=== PATIENT | male | born 1965 | race Caucasian/White ===

== ENCOUNTER 2016-12-04 21:12 | Emergency (ER) | payer SELFPAY ==
[~2016-12-04] VITALS: Ht 170.2 cm; Wt 156.4 kg
[~2016-12-04 21:12] MED LIST: CLON1TAB PO; LISI20TA PO; MOBI15TA PO; ULTR50TA5 PO; VENTAER INH
[2016-12-04 21:34] VITALS: BP 168/102; PULSE 92; RESP 16; TEMP 97.5
[2016-12-04] MEDS ORDERED: IBUP800T23 PO (21:51)
--- NOTE | 2016-12-04 22:28 | PD ---
HPI Chief Complaint: Skin Problem Time Seen by Provider: 22:23 Travel History International Travel<30 days: No Contact w/Intl Traveler<30days: No Traveled to known affect area: No History of Present Illness HPI The patient is a 51-year-old male that has had a sore (abscess) on his left upper medial thigh for one week. The patient states it is getting progressively painful and came here because of this. He denies any fever. He denies any history of diabetes. 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) Cardiovascular Problems: Yes (Cardiomegaly, HTN) High Cholesterol: Yes Chemotherapy: No Chest Pain: Yes (occassionally) Congestive Heart Failure: Yes (in March) COPD: No Cerebrovascular Accident: No Coronary Artery Disease: No Diabetes: No Diminished Hearing: No Endocrine: No Gastrointestinal Disorders: Yes (CALDERA'S ESOPHAGUS, LIVER CYSTS X3) Genitourinary: No Hypertension: Yes Immune Disorder: No Kidney Stones: Yes (few months ago) Musculoskeletal: No Neurologic: No Psychiatric: Yes Reproductive: No Respiratory: Yes (COPD, sleep apnea) Migraines: No Pneumonia: Yes Radiation Therapy: No Renal Failure: No Seizures: No Sickle Cell Disease: No Sleep Apnea: Yes Thyroid Disease: No Ulcer: No ?: Not Past Surgical History Abdominal Surgery: Yes (ESOPHOGUS SURG., POLYPS REMOVED) AICD: No Arteriovenous Shunt: No Cardiac Surgery: No Ear Surgery: No Endocrine Surgery: No Eye Surgery: No Genitourinary Surgery: No Gynecologic Surgery: No Insulin Pump: No Joint Replacement: No Oral Surgery: No Pacemaker: No Thoracic Surgery: No Other Surgery: Yes (LUNG SURGERY: LIPOMA REMOVED, RIGHT SIDE, AGE 30) Social History Alcohol Use: Yes ("NORMALLY 2 TO 3 TIMES A WEEK, EASILY TWO 18PK OF BEERS AT A TIME") Tobacco Use: Yes (1 ppd) Substance Use: No Allergies-Medications (Allergen,Severity, Reaction): Coded Allergies: No Known Allergies (Unverified , 08/10/16) Reported Meds & Prescriptions Reported Meds & Active Scripts Active Reported Ibuprofen 800 Mg Tab 800 Mg PO Q6HR PRN Clonazepam 1 Mg Tab 1 Mg PO BID Lisinopril-Hctz 20-12.5 Mg Tab 1 Tab PO DAILY Review of Systems Except as stated in HPI: all other systems reviewed are Neg Physical Exam Narrative GENERAL: Well-nourished, morbidly obese patient in moderate apparent distress with his left upper thigh abscess. His vital signs show blood pressure 168/102 but are otherwise normal.. SKIN: There is an abscess about 3 cm in diameter with 10 cm diameter cellulitic area surrounding the abscess. It is exquisitely painful and the patient is reluctant to let me touch this. HEAD: Normocephalic. EYES: No scleral icterus. No injection or drainage. NECK: Supple, trachea midline. No JVD or lymphadenopathy. CARDIOVASCULAR: Regular rate and rhythm without murmurs, gallops, or rubs. RESPIRATORY: Breath sounds equal bilaterally. No accessory muscle use. GASTROINTESTINAL: Abdomen soft, non-tender, nondistended. MUSCULOSKELETAL: No cyanosis, or edema. BACK: Nontender without obvious deformity. No CVA tenderness. Data Data Last Documented VS Vital Signs Date Time Temp Pulse Resp B/P Pulse Ox O2 Delivery O2 Flow Rate FiO2 12/04/16 21:34 97.5 92 16 168/102 Orders Wound Culture And Gram Stain (12/04/16 22:23) Lidocai-Epi 1%-1:100,000 Inj (Xylocaine- (12/04/16 22:30) MDM Medical Decision Making Medical Screen Exam Complete: Yes Emergency Medical Condition: Yes Medical Record Reviewed: Yes Differential Diagnosis Abscess, cellulitis, allergic reaction Narrative Course The patient has an abscess with a surrounding area of cellulitis. The abscess was drained and the patient will be getting doxycycline and Septra DS for the cellulitis. He should sit in a tub of warm water 3 times a day initially to keep the abscess cavity open/clean. Procedures Procedure Narrative The area was prepped with Betadine and, under sterile technique, a field block was done with lidocaine with epinephrine. A #11 blade was used to incise into the abscess and considerable blood and pus was recovered. Culture was taken of this material. The abscess cavity was cleaned and loculations broken up with peroxide moistened Q-tips. The patient tolerated procedure fairly well. Diagnosis Primary Impression: Abscess of left thigh Additional Impressions: Cellulitis of left thigh Encounter for incision and drainage procedure Additional Instructions: As we discussed, for the first few days he may need to soak it 3 times daily. Sit in a tub of warm water. Both antibiotics are twice daily for 10 days. Follow-up with your primary care physician this week. If worse, return to emergency department. Med/Other Pt SpecificInfo: Prescription(s) given Scripts Doxycycline Hyclate 100 Mg Pcf701 Mg PO BID #20 CAP Ref 0 Prov:Daryl Humphreys MD 12/04/16 Sulfamethoxazole-Trimethoprim (Bactrim DS)800-160 Mg Tab1 Tab PO BID #20 TAB Ref 0 Prov:Daryl Humphreys MD 12/04/16 Disposition: 01 DISCHARGE HOME Condition: Stable Daryl Humphreys MD Dec 04, 2016 22:28
[2016-12-04] MEDS ORDERED: LIDOCAINE 1%/EPINEPHrine 1:100,000 SOLN 20 ML VIAL INFIL ONE (22:30)
[2016-12-04] MEDS ORDERED: BACT800T5 PO (23:06)
[2016-12-04] MEDS ORDERED: DOXY100C PO (23:06)
[2016-12-04 23:21] VITALS: BP 162/89
== END 2016-12-04 23:41 | disposition home or self-care (01) ==
LOC: PHED 21:12
DX: L02.416 Cutaneous abscess of left lower limb (principal); F17.210 Nicotine dependence, cigarettes, uncomplicated; I10 Essential (primary) hypertension; E78.00 Pure hypercholesterolemia, unspecified; I50.9 Heart failure, unspecified; J44.9 Chronic obstructive pulmonary disease, unspecified; G47.30 Sleep apnea, unspecified
CPT/HCPCS: 10060; 86403; 87070; 87205

== ENCOUNTER 2017-02-26 13:57 | Observation (INO) | payer SELFPAY ==
[2017-02-26] VITALS (8 sets, daily range): BP systolic 98–143; BP diastolic 44–85; PULSE 98–118; RESP 20–28; TEMP 97.3–100.4; O2SAT 94–97
[~2017-02-26] VITALS: Ht 170.2 cm; Wt 149.7 kg
[~2017-02-26 13:57] MED LIST changes: +BACT800T5 PO; +DOXY100C PO; +IBUP800T23 PO; -MOBI15TA PO; -ULTR50TA5 PO; -VENTAER INH
[2017-02-26] MEDS ORDERED: SODIUM CHLORIDE 0.9% FLUSH 10 ML FLUSH IVF PRN (14:15)
[2017-02-26] MEDS: RESP: ALBUTEROL 2.5 MG/IPRATROPIUM 0.5 MG NEB (SCH) INH (14:20)
--- NOTE | 2017-02-26 14:29 | PD ---
HPI Chief Complaint: Respiratory Symptoms Time Seen by Provider: 14:05 Travel History International Travel<30 days: No Contact w/Intl Traveler<30days: No Traveled to known affect area: No History of Present Illness HPI This 51-year-old male is complaining of shortness of breath. He has a history of COPD and he says he has had fluid in his lungs in the past. He says he been having fever for the past 3 days. He has some itching in the groin and the axillary areas. He has been coughing up some thick phlegm. he says he has had a fever as high as 102. He smokes a pack a day. He is complaining of shortness of breath since this morning. He says he has a history of fluid in his lungs. Review of old chart shows that he described his pickwickian in the past. 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) Cardiovascular Problems: Yes (Cardiomegaly, HTN) High Cholesterol: Yes Chemotherapy: No Chest Pain: Yes (occassionally) Congestive Heart Failure: Yes (in March) COPD: No Cerebrovascular Accident: No Coronary Artery Disease: No Diabetes: No Diminished Hearing: No Endocrine: No Gastrointestinal Disorders: Yes (CALDERA'S ESOPHAGUS, LIVER CYSTS X3) Genitourinary: No Hypertension: Yes Immune Disorder: No Kidney Stones: Yes (few months ago) Musculoskeletal: No Neurologic: No Psychiatric: Yes Reproductive: No Respiratory: Yes (COPD, sleep apnea) Migraines: No Pneumonia: Yes Radiation Therapy: No Renal Failure: No Seizures: No Sickle Cell Disease: No Sleep Apnea: Yes Thyroid Disease: No Ulcer: No Past Surgical History Abdominal Surgery: Yes (ESOPHOGUS SURG., POLYPS REMOVED) AICD: No Arteriovenous Shunt: No Cardiac Surgery: No Ear Surgery: No Endocrine Surgery: No Eye Surgery: No Genitourinary Surgery: No Gynecologic Surgery: No Insulin Pump: No Joint Replacement: No Oral Surgery: No Pacemaker: No Thoracic Surgery: No Other Surgery: Yes (LUNG SURGERY: LIPOMA REMOVED, RIGHT SIDE, AGE 30) Social History Alcohol Use: Yes ("NORMALLY 2 TO 3 TIMES A WEEK, EASILY TWO 18PK OF BEERS AT A TIME") Tobacco Use: Yes (1 ppd) Substance Use: No Allergies-Medications (Allergen,Severity, Reaction): Coded Allergies: No Known Allergies (Unverified , 02/26/17) Reported Meds & Prescriptions Reported Meds & Active Scripts Active Reported Clonazepam 1 Mg Tab 1 Mg PO DAILY Lisinopril-Hctz 20-12.5 Mg Tab 1 Tab PO DAILY Review of Systems General / Constitutional: Positive: Fever, Chills Eyes: No: Diploplia HENT: No: Headaches Cardiovascular: Positive: Dyspnea on exertion, No: Chest Pain or Discomfort, Palpitations Respiratory: Positive: Cough, Shortness of Breath, No: Hemoptysis Gastrointestinal: No: Nausea, Vomiting Genitourinary: No: Urgency, Frequency Musculoskeletal: No: Myalgias, Arthralgias Skin: No Rash Neurologic: No: Weakness, Syncope Hematologic/Lymphatic: No: Easy Bruising Physical Exam Narrative GENERAL: Mildly obese male with labored respirations SKIN: Focused skin assessment warm/dry. HEAD: Atraumatic. Normocephalic. EYES: Pupils equal and round. No scleral icterus. No injection or drainage. ENT: No nasal bleeding or discharge. Mucous membranes pink and moist. NECK: Trachea midline. No JVD. CARDIOVASCULAR: Rapid Regular rate and rhythm. No murmur appreciated. RESPIRATORY:accessory muscle use. He has bilateral rhonchi and occasional wheeze. Breath sounds equal bilaterally. GASTROINTESTINAL: Abdomen soft, non-tender, nondistended. Hepatic and splenic margins not palpable. MUSCULOSKELETAL: No obvious deformities. No clubbing. No cyanosis. Trace edema. NEUROLOGICAL: Awake and alert. No obvious cranial nerve deficits. Motor grossly within normal limits. Normal speech. PSYCHIATRIC: Appropriate mood and affect; insight limited Data Data Last Documented VS Vital Signs Date Time Temp Pulse Resp B/P Pulse Ox O2 Delivery O2 Flow Rate FiO2 02/26/17 15:34 114 22 98/44 94 Room Air 02/26/17 14:55 100.4 02/26/17 14:24 Orders Complete Blood Count With Diff (02/26/17 14:11) Comprehensive Metabolic Panel (02/26/17 14:11) B-Type Natriuretic Peptide (02/26/17 14:11) Troponin I (02/26/17 14:11) Urinalysis - C+S If Indicated (02/26/17 14:11) Blood Culture (02/26/17 14:11) Iv Access Insert/Monitor (02/26/17 14:11) Ecg Monitoring (02/26/17 14:11) Oximetry (02/26/17 14:11) Oxygen Administration (02/26/17 14:11) Chest, Single Ap (02/26/17 14:11) Sodium Chloride 0.9% Flush (Ns Flush) (02/26/17 14:15) Albuterol-Ipratropium Neb (Duoneb Neb) (02/26/17 14:15) Lactic Acid Sepsis Protocol (02/26/17 14:18) Methylprednisolone So Succ Inj (Solumedr (02/26/17 14:45) Electrocardiogram (02/26/17 14:00) Acetaminophen (Tylenol) (02/26/17 15:00) Ceftriaxone Inj (Rocephin Inj) (02/26/17 15:45) Labs Laboratory Tests Test 02/26/17 14:10 White Blood Count 6.5 TH/MM3 Red Blood Count 4.97 MIL/MM3 Hemoglobin 14.8 GM/DL Hematocrit 44.2 % Mean Corpuscular Volume 89.1 FL Mean Corpuscular Hemoglobin 29.8 PG Mean Corpuscular Hemoglobin 33.5 % Concent Red Cell Distribution Width 12.8 % Platelet Count 152 TH/MM3 Mean Platelet Volume 7.8 FL Neutrophils (%) (Auto) 86.5 % Lymphocytes (%) (Auto) 7.0 % Monocytes (%) (Auto) 4.7 % Eosinophils (%) (Auto) 1.0 % Basophils (%) (Auto) 0.8 % Neutrophils # (Auto) 5.5 TH/MM3 Lymphocytes # (Auto) 0.5 TH/MM3 Monocytes # (Auto) 0.3 TH/MM3 Eosinophils # (Auto) 0.1 TH/MM3 Basophils # (Auto) 0.1 TH/MM3 CBC Comment DIFF FINAL Differential Comment Sodium Level 137 MEQ/L Potassium Level 4.0 MEQ/L Chloride Level 100 MEQ/L Carbon Dioxide Level 27.7 MEQ/L Anion Gap 9 MEQ/L Blood Urea Nitrogen 18 MG/DL Creatinine 0.94 MG/DL Estimat Glomerular Filtration 84 ML/MIN Rate Random Glucose 139 MG/DL Lactic Acid Level 2.1 mmol/L Calcium Level 8.4 MG/DL Total Bilirubin 0.5 MG/DL Aspartate Amino Transf 59 U/L (AST/SGOT) Alanine Aminotransferase 107 U/L (ALT/SGPT) Alkaline Phosphatase 77 U/L Troponin I LESS THAN 0.02 NG/ML B-Type Natriuretic Peptide 15 PG/ML Total Protein 7.7 GM/DL Albumin 3.5 GM/DL MDM Medical Decision Making Medical Screen Exam Complete: Yes Emergency Medical Condition: Yes Medical Record Reviewed: Yes Differential Diagnosis Differential includes CHF, pneumonia, COPD Narrative Course Chest x-rays read as negative. BNP is normal. He has been given repeated nebulizer treatments. He remains short of breath with rhonchi. Diagnosis Primary Impression: COPD exacerbation Admitting Information Admitting Physician Requests: Observation Ko De Leon MD Feb 26, 2017 14:29
[2017-02-26 14:31] LABS: AUTOMATED NEUTROPHIL # 5.5 TH/MM3 (1.8-7.7); BASOPHIL # 0.1 TH/MM3 (0-0.2); BASOPHIL % 0.8 % (0.0-2.0); EOSINOPHIL # 0.1 TH/MM3 (0-0.4); HEMATOCRIT 44.2 % (39.0-51.0); LYMPHOCYTE # 0.5 TH/MM3 (1.0-4.8); MEAN CELL VOLUME 89.1 FL (80.0-100.0); MEAN CORPUSCULAR HEMOGLOBIN 29.8 PG (27.0-34.0); MEAN CORPUSCULAR HGB CONC 33.5 % (32.0-36.0); MONO % 4.7 % (0.0-8.0); NEUT % 86.5 % (16.0-70.0); PLATELET COUNT 152 TH/MM3 (150-450); RED BLOOD COUNT 4.97 MIL/MM3 (4.50-5.90); RED CELL DISTRIBUTION WIDTH 12.8 % (11.6-17.2); WHITE BLOOD COUNT 6.5 TH/MM3 (4.0-11.0)
[2017-02-26 14:33] LABS: HEMO FLAGS DIFF FINAL
[2017-02-26 14:40] LABS: CHLORIDE 100 MEQ/L (98-107); SODIUM (NA) 137 MEQ/L (136-145)
[2017-02-26] MEDS ORDERED: methylPREDNISolone SOD SUCC 125 MG/2 ML VIAL IV PUSH ONE (14:45)
[2017-02-26 14:46] LABS: ANION GAP 9 MEQ/L (5-15); BICARBONATE 27.7 MEQ/L (21.0-32.0); BLOOD UREA NITROGEN 18 MG/DL (7-18)
[2017-02-26 14:49] LABS: ALT (GPT) 107 U/L (12-78); AST (GOT) 59 U/L (15-37); GLOMERULAR FILTRATION RATE 84 ML/MIN (>89)
[2017-02-26 14:51] LABS: TOTAL BILIRUBIN ADULT 0.5 MG/DL (0.2-1.0)
[2017-02-26 14:52] LABS: ALKALINE PHOSPHATASE 77 U/L (45-117)
[2017-02-26] MEDS ORDERED: ACETAMINOPHEN 500 MG CPLT PO ONE (15:00)
--- NOTE | 2017-02-26 15:18 | RADRPT ---
EXAM DATE/TIME: 02/26/2017 14:31 [facility] COMPARISON: CHEST SINGLE AP, August 10, 2016, 21:04. INDICATIONS : Short of breath MEDICAL HISTORY : Congestive heart failure. SURGICAL HISTORY : None. ENCOUNTER: Initial ACUITY: 1 day PAIN SCORE: 0/10 LOCATION: Bilateral chest FINDINGS: The lungs are clear without infiltrate, nodule, or mass. There is no appreciable pleural effusion fo r technique. Heart and mediastinum are unremarkable. CONCLUSION: No acute cardiopulmonary disease. Israel Agee MD on February 26, 2017 at 15:16 Board Certified Radiologist. This report was verified electronically.
[2017-02-26] MEDS ORDERED: cefTRIAXone INJ 1,000 MG in SODIUM CHLORIDE 0.9% INJ 100 ML IV ONE (15:45)
[2017-02-26] MEDS ORDERED: ONDANSETRON HCL 4 MG/2 ML VIAL IVP PRN (16:00)
[2017-02-26] MEDS ORDERED: RESP: ALBUTEROL 2.5 MG/IPRATROPIUM 0.5 MG NEB (SCH) INH (16:00)
[2017-02-26] MEDS ORDERED: RESP: ALBUTEROL 2.5 MG/3 ML NEB (PRN) INH (16:00)
[2017-02-26] MEDS ORDERED: FLUMAZENIL 0.5 MG/5 ML VIAL IV PUSH PRN (16:15)
[2017-02-26] MEDS ORDERED: LORazepam 2 MG/ML VIAL IV PUSH PRN ×3 (16:15)
[2017-02-26] MEDS ORDERED: LORazepam 2 MG TAB PO PRN (16:15)
[2017-02-26 16:23] LABS: LACTIC ACID GHOST NOT REPORTABLE
[2017-02-26] MEDS: LORazepam 1 MG TAB PO PRN (16:40)
[2017-02-26] MEDS: ENOXAPARIN SODIUM 40 MG/0.4 ML SYRINGE SQ SCH (16:50)
--- NOTE | 2017-02-26 17:54 | HHI.HP ---
[facility] Myron [facility] Admission Diagnosis COPD EXACERBATION Diagnoses: Chief Complaint: Severe Short of breath Travel History International Travel<30 Days: No Contact w/Intl Traveler <30 Da: No Traveled to Known Affected Are: No History of Present Illness 51 years old morbidly obese man with the habitus of pickwickian syndrome and history of COPD current smoker, presented to the ED complaining of worsening short of breath for the last few days along with worsening cough and phlegm production "jellyfish phlegm "patient denied fever or chills, he stated he had a fluid in his lungs previously and that was treated by Dr. Nuñez at [facility]. Patient denied recent sore throat or flulike syndrome, note dominant pain diarrhea or constipation dysuria urgency or frequency Review of Systems Except as stated in HPI: all other systems reviewed are Neg All systems reviewed and was positive for what is mentioned in history of present illness otherwise negative Past Family Social History Past Medical History Anxiety (POLYPS VIA COLONSCOPY past August) Congestive Heart Failure CALDERA'S ESOPHAGUS, LIVER CYSTS X3) Hypertension Kidney Stones COPD, sleep apnea) Past Surgical History (ESOPHOGUS SURG., POLYPS REMOVED LUNG SURGERY: LIPOMA REMOVED, RIGHT SIDE, AGE 30) Allergies: Coded Allergies: No Known Allergies (Unverified , 02/26/17) Family History Obesity Social History Drinks alcohol NORMALLY 2 TO 3 TIMES A WEEK, EASILY TWO 18PK OF BEERS AT A TIME ") Smoke one pack per day Physical Exam Vital Signs Vital Signs Date Time Temp Pulse Resp B/P Pulse Ox O2 Delivery O2 Flow Rate FiO2 02/26/17 17:35 98 20 143/61 94 Room Air 02/26/17 15:34 114 22 98/44 94 Room Air 02/26/17 14:58 113 22 96 Room Air 02/26/17 14:55 100.4 118 28 121/82 96 02/26/17 14:41 112 24 127/72 96 Room Air 02/26/17 14:24 95 Room Air 02/26/17 14:24 Room Air 95 02/26/17 14:22 98.1 117 28 128/85 95 Physical Exam GENERAL: This is a well-nourished morbidly obese patient, in minimal respiratory distress SKIN: No rashes, warm and dry HEAD: Atraumatic. Normocephalic. EYES: Pupils equal round and reactive. Extraocular motions intact. No scleral icterus. ENT: Nose without bleeding, or drainage, Airway patent. NECK: Trachea midline. Supple CARDIOVASCULAR: Distant heart sounds, Regular rate and rhythm without murmurs, gallops, or rubs. RESPIRATORY: Distant breath sounds mostly due to body habitus GASTROINTESTINAL: Abdomen soft, non-tender, nondistended. Positive bowel sounds MUSCULOSKELETAL: Extremities without clubbing, cyanosis, or edema. Pedal pulses appreciated NEUROLOGICAL: Awake and alert. Moves all extremity. Normal speech.no focal neurological deficit Laboratory Laboratory Tests Test 02/26/17 02/26/17 14:10 16:05 White Blood Count 6.5 Red Blood Count 4.97 Hemoglobin 14.8 Hematocrit 44.2 Mean Corpuscular Volume 89.1 Mean Corpuscular Hemoglobin 29.8 Mean Corpuscular Hemoglobin 33.5 Concent Red Cell Distribution Width 12.8 Platelet Count 152 Mean Platelet Volume 7.8 Neutrophils (%) (Auto) 86.5 Lymphocytes (%) (Auto) 7.0 Monocytes (%) (Auto) 4.7 Eosinophils (%) (Auto) 1.0 Basophils (%) (Auto) 0.8 Neutrophils # (Auto) 5.5 Lymphocytes # (Auto) 0.5 Monocytes # (Auto) 0.3 Eosinophils # (Auto) 0.1 Basophils # (Auto) 0.1 CBC Comment DIFF FINAL Differential Comment Sodium Level 137 Potassium Level 4.0 Chloride Level 100 Carbon Dioxide Level 27.7 Anion Gap 9 Blood Urea Nitrogen 18 Creatinine 0.94 Estimat Glomerular Filtration 84 Rate Random Glucose 139 Lactic Acid Level 2.1 2.3 Calcium Level 8.4 Total Bilirubin 0.5 Aspartate Amino Transf 59 (AST/SGOT) Alanine Aminotransferase 107 (ALT/SGPT) Alkaline Phosphatase 77 Troponin I LESS THAN 0.02 B-Type Natriuretic Peptide 15 Total Protein 7.7 Albumin 3.5 Date/Time Procedure Status Source Growth 02/26/17 14:15 Aerobic Blood Culture Received Blood Peripheral Pending 02/26/17 14:15 Anaerobic Blood Culture Received Blood Peripheral Pending Result Diagram: 02/26/17 1410 02/26/17 1410 Imaging Last Impressions Chest X-Ray 02/26/17 1411 Signed Impressions: Service Date/Time: Sunday, February 26, 2017 14:31 - CONCLUSION: No acute cardiopulmonary disease. Israel Agee MD Assessment and Plan Assessment and Plan 51 years old male with Acute exacerbation COPD: Worsening short of breath with cough and excessive phlegm fever 100.4 and tachycardia and lactic acidosis Pickwickian syndrome Obstructive sleep apnea Morbid obesity Hypertension Alcohol and tobacco be Increase transaminase paradoxical ALT/AST 2:1 DVT prophylaxis with heparin and SCD Plan: O2, DuoNeb, Solu-Medrol 1 dose has been given will continue Levaquin 500 mg iv daily Extensively counseled about stop smoking he has the will to do it Will cycle cardiac enzyme rule out underlying ischemia Monitor temperature and O2 sat Monitor clinical improvement Continue home medication for other medical problem per med rec Discussed Condition With Patient in ED physician Jose Fajardo MD Feb 26, 2017 17:54
[2017-02-26] MEDS ORDERED: LEVOFLOXACIN 750 MG PREMIX INJ 150 ML IV SCH (18:00)
[2017-02-26] MEDS: methylPREDNISolone SOD SUCC 125 MG/2 ML VIAL IV PUSH SCH ×2 (18:56→22:06)
[2017-02-26] MEDS: LEVOFLOXACIN 500 MG PREMIX INJ 100 ML IV SCH (18:57)
[2017-02-26 19:18] LABS: CREATINE KINASE 65 U/L (39-308)
[2017-02-26] MEDS: RESP: ALBUTEROL 2.5 MG/IPRATROPIUM 0.5 MG NEB (SCH) NEB (19:59)
[2017-02-26] MEDS ORDERED: MORPHINE SULFATE 8 MG/ML INJ IV PUSH ONE (20:00)
[2017-02-26] MEDS: SODIUM CHLORIDE 0.9% FLUSH 10 ML FLUSH IV FLUSH SCH (20:16)
[2017-02-26 21:44] LABS: BLOOD, URINE NEG (NEG); GLUCOSE,URINE NEG (NEG); KETONE, URINE NEG (NEG); NITRITE,URINE NEG (NEG)
[2017-02-26] MEDS ORDERED: HYDROmorphone HCL PF 1 MG/ML VIAL IV PUSH ONE (21:45)
[2017-02-26 22:22] LABS: URINE COLOR YELLOW (YELLW/STRAW)
[2017-02-26 22:23] LABS: MUCUS URINE MOD /lpf (OCC); SQUAMOUS EPITHELIAL CELL URINE 0-5 /hpf (0-5)
[2017-02-26 22:24] LABS: COMMENT (UR) CULT NOT INDICATED; CULTURE IF INDICATED CULT NOT INDICATED
[2017-02-27] VITALS (9 sets, daily range): BP systolic 128–155; BP diastolic 78–91; PULSE 65–107; RESP 17–26; TEMP 97.3–98.7; O2SAT 93–96
[2017-02-27] MEDS: LORazepam 2 MG/ML VIAL IV PUSH PRN (00:34)
[2017-02-27] MEDS: PANTOPRAZOLE SODIUM 40 MG VIAL IV PUSH SCH (00:41)
[2017-02-27 00:58] LABS: CREATINE KINASE 83 U/L (39-308)
[2017-02-27] MEDS: methylPREDNISolone SOD SUCC 125 MG/2 ML VIAL IV PUSH SCH ×4 (06:15→23:16)
[2017-02-27] MEDS: RESP: ALBUTEROL 2.5 MG/IPRATROPIUM 0.5 MG NEB (SCH) NEB ×4 (07:39→19:28)
[2017-02-27 07:59] LABS: AUTOMATED NEUTROPHIL # 7.4 TH/MM3 (1.8-7.7); BASOPHIL % 0.1 % (0.0-2.0); EOSINOPHIL % 0.2 % (0.0-4.0); HEMATOCRIT 40.6 % (39.0-51.0); HEMO FLAGS DIFF FINAL; LYMPH % 7.2 % (9.0-44.0); LYMPHOCYTE # 0.6 TH/MM3 (1.0-4.8); MEAN CELL VOLUME 89.3 FL (80.0-100.0); MEAN CORPUSCULAR HEMOGLOBIN 30.1 PG (27.0-34.0); MEAN CORPUSCULAR HGB CONC 33.7 % (32.0-36.0); MONO % 2.8 % (0.0-8.0); NEUT % 89.7 % (16.0-70.0); PLATELET COUNT 159 TH/MM3 (150-450); RED BLOOD COUNT 4.55 MIL/MM3 (4.50-5.90); RED CELL DISTRIBUTION WIDTH 12.9 % (11.6-17.2); WHITE BLOOD COUNT 8.2 TH/MM3 (4.0-11.0)
[2017-02-27 08:07] LABS: CHLORIDE 100 MEQ/L (98-107); POTASSIUM 3.9 MEQ/L (3.5-5.1); SODIUM (NA) 135 MEQ/L (136-145)
[2017-02-27 08:21] LABS: ALKALINE PHOSPHATASE 73 U/L (45-117); ALT (GPT) 76 U/L (12-78); ANION GAP 10 MEQ/L (5-15); AST (GOT) 28 U/L (15-37); BICARBONATE 24.8 MEQ/L (21.0-32.0); BLOOD UREA NITROGEN 20 MG/DL (7-18); CREATINE KINASE 122 U/L (39-308); GLOMERULAR FILTRATION RATE 83 ML/MIN (>89); TOTAL BILIRUBIN ADULT 0.3 MG/DL (0.2-1.0)
[2017-02-27 08:36] LABS: CKMB 1.3 NG/ML (0.5-3.6)
[2017-02-27] MEDS ORDERED: HYDROCHLOROTHIAZIDE 25 MG TAB PO SCH (09:00)
[2017-02-27] MEDS ORDERED: NON-FORMULARY DRUG (Lisinopril-Hctz 1 TAB) PO SCH (09:00)
[2017-02-27] MEDS ORDERED: SODIUM CHLOR 0.9% 1000 ML INJ 1,000 ML IV SCH (09:30)
[2017-02-27] MEDS: LISINOPRIL 20 MG TAB PO SCH (09:33)
[2017-02-27] MEDS: clonazePAM 1 MG TAB PO SCH (09:33)
[2017-02-27] MEDS: SODIUM CHLORIDE 0.9% FLUSH 10 ML FLUSH IV FLUSH SCH ×2 (09:33→20:16)
--- NOTE | 2017-02-27 10:43 | HHI.PR ---
Subjective Remarks Patient complained of sore in his abdominal muscles due to this exhausting cough I explained to him the importance of quitting smoking in order to alleviate the inflammatory process that synergistically worsening the situation with his body habitus pickwickian syndrome and mostly BEENA He still on O2 3-4 L Objective Vitals Vital Signs Date Time Temp Pulse Resp B/P Pulse Ox O2 Delivery O2 Flow Rate FiO2 02/27/17 08:00 97.7 69 18 128/81 96 02/27/17 07:41 96 Nasal Cannula 3.00 02/27/17 04:00 98.7 97 26 145/83 94 02/27/17 01:38 98.7 97 26 145/83 94 02/26/17 22:17 97.9 102 20 120/55 94 02/26/17 20:00 105 02/26/17 20:00 97 Nasal Cannula 4.00 02/26/17 18:56 97.3 111 24 130/69 95 02/26/17 18:30 98 20 94 02/26/17 17:35 98 20 143/61 94 Room Air 02/26/17 15:34 114 22 98/44 94 Room Air 02/26/17 14:58 113 22 96 Room Air 02/26/17 14:55 100.4 118 28 121/82 96 02/26/17 14:41 112 24 127/72 96 Room Air 02/26/17 14:24 95 Room Air 02/26/17 14:24 Room Air 95 02/26/17 14:22 98.1 117 28 128/85 95 I/O 02/26/17 02/26/17 02/26/17 02/27/17 02/27/17 02/27/17 07:00 15:00 23:00 07:00 15:00 23:00 Intake Total 100 ml Balance 100 ml Intake IV Total 100 ml Result Diagram: 02/27/17 0740 02/27/17 0740 Imaging Last Impressions Abdomen X-Ray 02/27/17 0000 Signed Impressions: Service Date/Time: Monday, February 27, 2017 13:08 - CONCLUSION: Normal examination. Cachorro Jones MD Chest X-Ray 02/26/17 1411 Signed Impressions: Service Date/Time: Sunday, February 26, 2017 14:31 - CONCLUSION: No acute cardiopulmonary disease. Israel Agee MD Objective Remarks GENERAL: This is a well-nourished morbidly obese patient, in minimal respiratory distress SKIN: No rashes, warm and dry HEAD: Atraumatic. Normocephalic. EYES: Pupils equal round and reactive. Extraocular motions intact. No scleral icterus. ENT: Nose without bleeding, or drainage, Airway patent. NECK: Trachea midline. Supple CARDIOVASCULAR: Distant heart sounds, Regular rate and rhythm without murmurs, gallops, or rubs. RESPIRATORY: Distant breath sounds mostly due to body habitus GASTROINTESTINAL: Abdomen soft, non-tender, nondistended. Positive bowel sounds MUSCULOSKELETAL: Extremities without clubbing, cyanosis, or edema. Pedal pulses appreciated NEUROLOGICAL: Awake and alert. Moves all extremity. Normal speech.no focal neurological deficit A/P Assessment and Plan 51 years old male with Acute exacerbation COPD: Worsening short of breath with cough and excessive phlegm fever 100.4 and tachycardia and lactic acidosis Worsening lactic acidosis Hyperglycemia, [place] induced versus underlying diabetes mellitus undiagnosed Pickwickian syndrome Obstructive sleep apnea Morbid obesity Hypertension Alcohol and tobacco be Increase transaminase paradoxical ALT/AST 2:1 DVT prophylaxis with heparin and SCD Plan: Continue iv fluid and repeat lactic acid in a.m. Accu-Chek with insulin sliding scale, check A1c cardiac enzyme 3 sets reviewed by me within normal limits I will consult pulmonology Extensive Smoking cessation also patient O2, DuoNeb, Solu-Medrol 1 dose has been given will continue Levaquin 500 mg iv daily Monitor temperature and O2 sat Monitor clinical improvement Continue home medication for other medical problem per med rec Jose Fajardo MD Feb 27, 2017 10:43
[2017-02-27] MEDS: NICOTINE 14 MG/24 HR PATCH T-DERMAL SCH (10:55)
[2017-02-27] MEDS ORDERED: GLUCAGON 1 MG/ML VIAL OTHER PRN (11:30)
[2017-02-27] MEDS ORDERED: DEXTROSE 50% IN WATER 50 ML VIAL(D50) IV PUSH PRN (11:30)
[2017-02-27] MEDS: ACETAMINOPHEN 325 MG TAB PO PRN ×2 (12:32→23:15)
--- NOTE | 2017-02-27 14:04 | RADRPT ---
EXAM DATE/TIME: 02/27/2017 13:08 [facility] COMPARISON: No previous studies available for comparison. INDICATIONS : Abdomen pain, vomiting, diarrhea. MEDICAL HISTORY : Congestive heart failure. Chronic obstructive pulmonary disease. SURGICAL HISTORY : None. ENCOUNTER: Subsequent ACUITY: 3 days PAIN SCORE: 10/10 LOCATION: Bilateral upper quadrant and lower quadrant abdomen FINDINGS: Supine view of the abdomen was performed. The abdominal bowel gas pattern is normal. No abnormal ma sses, calcifications, or organomegaly is seen. The osseous structures are unremarkable. CONCLUSION: Normal examination. Cachorro Jones MD on February 27, 2017 at 14:02 Board Certified Radiologist. This report was verified electronically.
[2017-02-27] MEDS: INSULIN NovoLIN REGULAR SUPPLEMENTAL SCALE SQ SCH ×2 (15:41→20:26)
[2017-02-27] MEDS: ENOXAPARIN SODIUM 40 MG/0.4 ML SYRINGE SQ SCH (15:43)
[2017-02-27] MEDS ORDERED: IBUPROFEN 400 MG TAB PO PRN (17:00)
[2017-02-27 17:17] LABS: HEMOGLOBIN A1a 1.2 %; HEMOGLOBIN A1b 2.1 %; HEMOGLOBIN Ao 81.6 %; HEMOGLOBIN LA1C 3.4 %; HEMOGLOBIN P3 4.7 %
[2017-02-27] MEDS: LEVOFLOXACIN 500 MG PREMIX INJ 100 ML IV SCH (18:00)
--- NOTE | 2017-02-27 19:48 | EKG ---
Date Performed: 02/26/2017 Time Performed: 14:00:47 PTAGE: 51 years EKG: SINUS TACHYCARDIA MINIMAL ST DEPRESSION ABNORMAL RHYTHM ECG PREVIOUS TRACING 08/10/2016 20.35 Since previous tracing, no significant change noted DOCTOR: Michael Ahumada Interpretating Date/Time 02/27/2017 19:47:12
[2017-02-27] MEDS: RESP: ALBUTEROL 2.5 MG/IPRATROPIUM 0.5 MG NEB (PRN) NEB (22:20)
[2017-02-27] MEDS: RESP: ACETYLCYSTEINE 20% 30 ML NEB NEB SCH (22:20)
[2017-02-27] MEDS: LORazepam 1 MG TAB PO PRN (23:15)
[2017-02-28] VITALS (12 sets, daily range): BP systolic 108–155; BP diastolic 53–109; PULSE 85–98; RESP 20–23; TEMP 95.9–99.2; O2SAT 91–97
[2017-02-28] MEDS: PANTOPRAZOLE SODIUM 40 MG VIAL IV PUSH SCH (01:26)
[2017-02-28] MEDS: RESP: ALBUTEROL 2.5 MG/IPRATROPIUM 0.5 MG NEB (PRN) NEB (03:58)
[2017-02-28] MEDS: RESP: ACETYLCYSTEINE 20% 30 ML NEB NEB SCH ×4 (03:59→22:00)
[2017-02-28] MEDS: methylPREDNISolone SOD SUCC 125 MG/2 ML VIAL IV PUSH SCH ×4 (05:51→23:58)
[2017-02-28] MEDS: INSULIN NovoLIN REGULAR SUPPLEMENTAL SCALE SQ SCH ×4 (06:06→21:03)
[2017-02-28 06:29] LABS: POTASSIUM 3.6 MEQ/L (3.5-5.1)
[2017-02-28 07:10] LABS: BICARBONATE 23.2 MEQ/L (21.0-32.0); MAGNESIUM 2.3 MG/DL (1.5-2.5)
[2017-02-28] MEDS: RESP: ALBUTEROL 2.5 MG/IPRATROPIUM 0.5 MG NEB (SCH) NEB ×4 (07:30→20:19)
[2017-02-28 07:38] LABS: CALCIUM-PROTEIN CORRECTED 7.1 MG/DL (8.5-10.1)
--- NOTE | 2017-02-28 08:15 | MB ---
cc: CATALINO JOSE KHALIL MD DATE OF CONSULTATION: 02/27/[address] Fajardo REASON FOR CONSULTATION COPD exacerbation and sleep apnea. HISTORY OF PRESENT ILLNESS Mr. Ross is a 51-year-old morbidly obese male with a history of COPD, nicotine use and heavy alcohol use. He came to the hospital with shortness of breath. He has thick mucus which is hard for him to bring up sputum. He did not have fever or chills. No night sweats. No nausea or vomiting. He does not use any oxygen or nebulizer treatment. He has symptoms suggestive of sleep apnea but has never been formally tested. The patient was evaluated in the hospital. His CBC showed WBC count 8.2, hemoglobin 13.7, hematocrit 40.6, MCV 89, platelet count 159. His sodium is 134, potassium 3.9, chloride 100, CO2 25, BUN 20, creatinine 0.95. His chest x-ray shows no acute cardiopulmonary process. PAST MEDICAL HISTORY 1. Hypertension. 2. Noel's esophagus. 3. Colonoscopy, status post polyp removal. 4. COPD. 5. Likely sleep apnea. MEDICATIONS He is currently takin. Ibuprofen 400 mg q.12h. 2. Insulin. 3. Nicotine patch. 4. Klonopin 1 mg daily. 5. Lisinopril 20 mg a day. 6. Protonix 40 mg a day. 7. Albuterol/Atrovent nebulizer. 8. Solu-Medrol 60 mg q.6h. 9. Levaquin 500 mg a day. 10.Lovenox 40 mg a day. 11.Lorazepam 1 mg q.4h. 12.Romazicon p.r.n. ALLERGIES No known drug allergies. SOCIAL HISTORY He lives with his partner for 26 years, has four children. History of smoking 1-1/2 packs a day since age 12. He takes 30-40 beers every other day or so. No drug use. He has a [employer] company. REVIEW OF SYSTEMS Normally he is up, around and active. He feels tired and snores a lot. No headache or dizziness. No nausea or vomiting. No DVT or pulmonary embolism. PHYSICAL EXAMINATION GENERAL: A morbidly obese male, mildly short of breath. VITAL SIGNS: Blood pressure 148/91, heart rate 100, respirations 18, temperature 98. HEENT: Examination unremarkable. NECK: Supple. JVP not raised. CHEST: He has faint rhonchi. CARDIOVASCULAR: S1, S2 normal. ABDOMEN: Obese, nontender. Bowel sounds are present. EXTREMITIES: No edema. IMPRESSION 1. COPD with mild exacerbation. 2. Bronchitis. 3. Symptoms suggestive of sleep apnea. 4. Morbid obesity. 5. Hypercholesterolemia. 6. Hypertension. 7. Nicotine use. 8. Alcohol use. PLAN Advised him strongly to quit smoking and decrease his alcohol intake. I will start him on Mucomyst nebulizer treatment, continue aerosol treatment, supplement his oxygen. He will use a CPAP at nighttime. He will need a sleep study as an outpatient. Further treatment will depend on the course in the hospital. Thank you, Dr. Fajardo, for this consultation. MD TIFFANIE Thurman/TIM /8:48 PM /8:04 AM JOVANI
[2017-02-28] MEDS: REMOVE OLD PATCH T-DERMAL SCH (09:00)
[2017-02-28] MEDS: SODIUM CHLORIDE 0.9% FLUSH 10 ML FLUSH IV FLUSH SCH ×2 (09:32→20:20)
[2017-02-28] MEDS: clonazePAM 1 MG TAB PO SCH (09:32)
[2017-02-28] MEDS: LISINOPRIL 20 MG TAB PO SCH (09:32)
[2017-02-28] MEDS: NICOTINE 14 MG/24 HR PATCH T-DERMAL SCH (09:39)
[2017-02-28] MEDS ORDERED: hydrOXYzine HCL 25 MG TAB PO PRN (14:30)
[2017-02-28] MEDS: ENOXAPARIN SODIUM 40 MG/0.4 ML SYRINGE SQ SCH (17:23)
[2017-02-28] MEDS: LEVOFLOXACIN 500 MG TAB PO SCH (17:23)
--- NOTE | 2017-02-28 17:57 | HHI.PR ---
Subjective Remarks Follow up on COPD exacerbation with BEENA pickwickian syndrome, bronchitis Patient stated he started feeling little better breathing He stated he is more able to expectorate phlegm Fever or chills Objective Vitals Vital Signs Date Time Temp Pulse Resp B/P Pulse Ox O2 Delivery O2 Flow Rate FiO2 02/28/17 14:13 94 95 02/28/17 12:00 96.7 85 22 131/57 91 02/28/17 11:58 94 21 02/28/17 08:00 95.9 96 22 155/78 97 02/28/17 07:32 96 Nasal Cannula 2.00 02/28/17 04:00 97.8 93 20 112/64 93 02/28/17 03:59 94 21 02/28/17 00:00 97.0 98 20 108/53 94 02/27/17 20:00 107 02/27/17 20:00 97.3 103 20 155/78 93 02/27/17 19:28 94 Nasal Cannula 2.00 I/O 02/27/17 02/27/17 02/27/17 02/28/17 02/28/17 02/28/17 06:59 14:59 22:59 06:59 14:59 22:59 Intake Total 100 ml 1440 ml 800 ml 240 ml Balance 100 ml 1440 ml 800 ml 240 ml Intake Oral 1100 ml 120 ml 240 ml IV Total 100 ml 340 ml 680 ml # Voids 3 2 2 # Bowel Movements 1 0 1 Result Diagram: 02/27/17 0740 02/28/17 0550 Objective Remarks GENERAL: This is a well-nourished morbidly obese patient, in minimal respiratory distress SKIN: No rashes, warm and dry HEAD: Atraumatic. Normocephalic. EYES: Pupils equal round and reactive. Extraocular motions intact. No scleral icterus. ENT: Nose without bleeding, or drainage, Airway patent. NECK: Trachea midline. Supple CARDIOVASCULAR: Distant heart sounds, Regular rate and rhythm without murmurs, gallops, or rubs. RESPIRATORY: Distant breath sounds mostly due to body habitus GASTROINTESTINAL: Abdomen soft, non-tender, nondistended. Positive bowel sounds MUSCULOSKELETAL: Extremities without clubbing, cyanosis, or edema. Pedal pulses appreciated NEUROLOGICAL: Awake and alert. Moves all extremity. Normal speech.no focal neurological deficit A/P Assessment and Plan 51 years old male with Acute exacerbation COPD: Worsening short of breath with cough and excessive phlegm fever 100.4 and tachycardia and lactic acidosis Worsening lactic acidosis lactic acid is pending today Hyperglycemia, steroid induced versus underlying diabetes mellitus undiagnosed Hypocalcemia Pickwickian syndrome Obstructive sleep apnea Morbid obesity Hypertension Alcohol and tobacco be Increase transaminase paradoxical ALT/AST 2:1 DVT prophylaxis with heparin and SCD Plan: Continue iv fluid repeated lactic acid pending Check vitamin D, parathyroid hormone, calcium gluconate iv 2 g 1, B BMP in a.m. Accu-Chek with insulin sliding scale, A1c borderline 6.5 cardiac enzyme 3 sets reviewed by me within normal limits Appreciate pulmonology consultation, discussed with Dr. Mcclellan, continue Mucomyst and steroid, C Pap, hopefully discharge when stable in one or 2 days Extensive Smoking cessation also patient O2, DuoNeb, Solu-Medrol 1 dose has been given will continue Levaquin 500 mg iv daily Monitor temperature and O2 sat Monitor clinical improvement Continue home medication for other medical problem per med rec Discharge Planning In 24-48 hours when breathing stable and cleared by pulmonology Jose Fajardo MD Feb 28, 2017 17:57
[2017-02-28] MEDS ORDERED: KETOROLAC TROMETHAMINE 60 MG/2 ML (IM) VIAL IM ONE (18:00)
--- NOTE | 2017-02-28 18:15 | HHI.PR ---
Subjective Remarks alert ambulating less SOB Objective Laboratory Tests Test 02/26/17 02/26/17 02/26/17 02/26/17 14:10 16:05 18:20 21:20 Neutrophils (%) (Auto) 86.5 % (16.0-70.0) Lymphocytes (%) (Auto) 7.0 % (9.0-44.0) Lymphocytes # (Auto) 0.5 TH/MM3 (1.0-4.8) Estimat Glomerular Filtration 84 ML/MIN (>89) Rate Random Glucose 139 MG/DL (74-106) Lactic Acid Level 2.1 mmol/L 2.3 mmol/L (0.4-2.0) (0.4-2.0) Calcium Level 8.4 MG/DL (8.5-10.1) Aspartate Amino Transf 59 U/L (15-37) (AST/SGOT) Alanine Aminotransferase 107 U/L (12-78) (ALT/SGPT) Troponin I LESS THAN 0.02 LESS THAN 0.02 NG/ML NG/ML (0.02-0.05) (0.02-0.05) Urine Hyaline Casts 3-5 /lpf (RARE) Urine Mucus MOD /lpf (OCC) Test 02/26/17 02/27/17 02/28/17 02/28/17 23:57 07:40 05:50 09:10 Troponin I LESS THAN 0.02 LESS THAN 0.02 NG/ML NG/ML (0.02-0.05) (0.02-0.05) Neutrophils (%) (Auto) 89.7 % (16.0-70.0) Lymphocytes (%) (Auto) 7.2 % (9.0-44.0) Lymphocytes # (Auto) 0.6 TH/MM3 (1.0-4.8) Sodium Level 135 MEQ/L (136-145) Blood Urea Nitrogen 20 MG/DL (7-18) 23 MG/DL (7-18) Estimat Glomerular Filtration 83 ML/MIN (>89) 84 ML/MIN (>89) Rate Random Glucose 275 MG/DL 249 MG/DL (74-106) (74-106) Hemoglobin A1c 6.5 % (4.3-6.0) Lactic Acid Level 3.7 mmol/L (0.4-2.0) Calcium Level 7.9 MG/DL 6.8 MG/DL 7.0 MG/DL (8.5-10.1) (8.5-10.1) (8.5-10.1) Albumin 3.0 GM/DL (3.4-5.0) Protein Corrected Calcium 7.1 MG/DL (8.5-10.1) Parathyroid Hormone (Intact) 243.5 PG/ML (12.4-76.8) Vital Signs Date Time Temp Pulse Resp B/P Pulse Ox O2 Delivery O2 Flow Rate FiO2 02/28/17 16:00 99.2 89 23 134/67 92 02/28/17 14:13 94 95 02/28/17 12:00 96.7 85 22 131/57 91 02/28/17 11:58 94 21 02/28/17 08:00 95.9 96 22 155/78 97 02/28/17 07:32 96 Nasal Cannula 2.00 02/28/17 04:00 97.8 93 20 112/64 93 02/28/17 03:59 94 21 02/28/17 00:00 97.0 98 20 108/53 94 02/27/17 20:00 107 02/27/17 20:00 97.3 103 20 155/78 93 02/27/17 19:28 94 Nasal Cannula 2.00 I/O 02/27/17 02/27/17 02/27/17 02/28/17 02/28/17 02/28/17 07:00 15:00 23:00 07:00 15:00 23:00 Intake Total 100 ml 1440 ml 800 ml 1440 ml Balance 100 ml 1440 ml 800 ml 1440 ml Intake Oral 1100 ml 120 ml 1440 ml IV Total 100 ml 340 ml 680 ml # Voids 3 2 12 # Bowel Movements 1 0 2 Result Diagram: 02/27/17 0740 02/28/17 0550 Objective Remarks GENERAL: SKIN: Warm and dry. HEAD: Atraumatic. Normocephalic. EYES: Pupils equal and round. No scleral icterus. No injection or drainage. ENT: No nasal bleeding or discharge. Mucous membranes pink and moist. NECK: Trachea midline. No JVD. CARDIOVASCULAR: Regular rate and rhythm. RESPIRATORY: No accessory muscle use. Clear to auscultation. Breath sounds equal bilaterally. GASTROINTESTINAL: Abdomen soft, non-tender, nondistended. Hepatic and splenic margins not palpable. MUSCULOSKELETAL: Extremities without clubbing, cyanosis, or edema. No obvious deformities. NEUROLOGICAL: Awake and alert. No obvious cranial nerve deficits. Motor grossly within normal limits. Five out of 5 muscle strength in the arms and legs. Normal speech. PSYCHIATRIC: Appropriate mood and affect; insight and judgment normal. Assessment and Plan Assessment and Plan ASS COPD EXACERBATION MORBID OBESITY ? BEENA/CSA PLAN CONTINUE BRONCHODILATOR THERAPY INCREASE ACTIVITY SLEEP EVALUATION POST D/C Savannah Nuñez MD Feb 28, 2017 18:15
[2017-02-28] MEDS ORDERED: CALCIUM GLUCONATE INJ 2 GM in DEXTROSE 5% IN WATER 100ML INJ 100 ML IV ONE ×2 (20:00)
[2017-02-28] MEDS: SODIUM CHLORIDE 0.9% FLUSH 10 ML FLUSH IV FLUSH PRN (23:58)
[2017-03-01] VITALS (8 sets, daily range): BP systolic 125–159; BP diastolic 67–92; PULSE 75–90; RESP 20–22; TEMP 95.4–98.6; O2SAT 94–96
[2017-03-01] MEDS: RESP: ACETYLCYSTEINE 20% 30 ML NEB NEB SCH ×3 (04:00→20:20)
[2017-03-01] MEDS: LORazepam 2 MG/ML VIAL IV PUSH PRN (05:18)
[2017-03-01] MEDS: SODIUM CHLORIDE 0.9% FLUSH 10 ML FLUSH IV FLUSH PRN ×2 (05:19→05:44)
[2017-03-01] MEDS: methylPREDNISolone SOD SUCC 125 MG/2 ML VIAL IV PUSH SCH (05:44)
[2017-03-01] MEDS: INSULIN NovoLIN REGULAR SUPPLEMENTAL SCALE SQ SCH ×4 (07:00→21:42)
[2017-03-01] MEDS: RESP: ALBUTEROL 2.5 MG/IPRATROPIUM 0.5 MG NEB (SCH) NEB ×4 (07:23→20:22)
[2017-03-01 08:30] LABS: POTASSIUM 4.1 MEQ/L (3.5-5.1)
[2017-03-01 08:46] LABS: BICARBONATE 26.6 MEQ/L (21.0-32.0)
[2017-03-01] MEDS: REMOVE OLD PATCH T-DERMAL SCH (09:00)
[2017-03-01] MEDS ORDERED: CHOLECALCIFEROL (VIT D3) 5000 UNIT CAP PO SCH (10:00)
[2017-03-01] MEDS ORDERED: CALCIUM GLUCONATE INJ 2 GM in DEXTROSE 5% IN WATER 100ML INJ 100 ML IV ONE ×2 (10:00)
--- NOTE | 2017-03-01 10:00 | HHI.PR ---
Subjective Remarks in no acute distress. sob and cough has improved. has some exertional dyspnea. afebrile. Objective Vitals Vital Signs Date Time Temp Pulse Resp B/P Pulse Ox O2 Delivery O2 Flow Rate FiO2 03/01/17 08:00 97.2 75 22 145/84 96 03/01/17 07:24 96 21 03/01/17 04:00 96.0 86 20 159/92 96 03/01/17 00:00 98.6 90 20 127/71 94 02/28/17 20:19 95 21 02/28/17 20:00 91 02/28/17 20:00 98.2 93 20 148/89 96 02/28/17 16:00 99.2 89 23 134/67 92 02/28/17 14:13 94 95 02/28/17 12:00 96.7 85 22 131/57 91 02/28/17 11:58 94 21 I/O 02/28/17 02/28/17 02/28/17 03/01/17 03/01/17 03/01/17 07:00 15:00 23:00 07:00 15:00 23:00 Intake Total 800 ml 1440 ml 960 ml 960 ml Balance 800 ml 1440 ml 960 ml 960 ml Intake Oral 120 ml 1440 ml 960 ml 960 ml IV Total 680 ml # Voids 2 12 4 3 # Bowel Movements 0 2 0 0 Result Diagram: 02/27/17 0740 03/01/17 0800 Imaging Last Impressions Abdomen X-Ray 02/27/17 0000 Signed Impressions: Service Date/Time: Monday, February 27, 2017 13:08 - CONCLUSION: Normal examination. Cachorro Jones MD Chest X-Ray 02/26/17 1411 Signed Impressions: Service Date/Time: Sunday, February 26, 2017 14:31 - CONCLUSION: No acute cardiopulmonary disease. Israel Agee MD Objective Remarks GENERAL: This is a well-nourished, well-developed patient, in no apparent distress. CARDIOVASCULAR: Regular rate and regular rhythm without murmurs, gallops, or rubs. RESPIRATORY: Clear to auscultation. diminished air entry bilaterally. GASTROINTESTINAL: Abdomen soft, non-tender, nondistended. Normal, active bowel sounds MUSCULOSKELETAL: Extremities without clubbing, cyanosis, or edema. NEURO: Alert & Oriented x4 to person, place, time, situation. Moves all ext x4 Medications and IVs Current Medications Sodium Chloride (NS Flush) 2 ml UNSCH PRN IVF FLUSH AFTER USING IV ACCESS; Start 02/26/17 at 14:15; Stop 02/26/17 at 16:39; Status DC Albuterol/ Ipratropium (Duoneb Neb) 1 ampule Q15M INH Last administered on 02/26 14:20; Start 02/26/17 at 14:15; Stop 02/26/17 at 14:46; Status DC Methylprednisolone Sodium Succinate (SoluMEDROL INJ) 125 mg ONCE ONCE IV PUSH Last administered on 02/26/17 14:52; Start 02/26/17 at 14:45; Stop 02/26/17 at 14:46; Status DC Acetaminophen 1000 mg 1,000 mg ONCE ONCE PO Last administered on 02/26/17 15: 07; Start 02/26/17 at 15:00; Stop 02/26/17 at 15:01; Status DC Ceftriaxone Sodium/Sodium Chloride (Rocephin Inj/NS Inj) 100 ml @ 200 mls/hr ONCE ONCE IV Last administered on 02/26/17 16:00; Start 02/26/17 at 15:45; Stop 02/26/17 at 16:14; Status DC Sodium Chloride (NS Flush) 2 ml UNSCH PRN IV FLUSH FLUSH AFTER USING IV ACCESS Last administered on 03/01/17 05:44; Start 02/26/17 at 16:00 Sodium Chloride (NS Flush) 2 ml BID IV FLUSH Last administered on 02/28/17 20: 20; Start 02/26/17 at 21:00 Acetaminophen (Tylenol) 650 mg Q4H PRN PO TEMP > 100.4 Last administered on 23:15; Start 02/26/17 at 16:00 Ondansetron HCl (Zofran Inj) 4 mg Q6H PRN IVP NAUSEA OR VOMITING; Start at 16:00 Enoxaparin Sodium (Lovenox Inj) 40 mg Q24H SQ Last administered on 02/28/17 17 :23; Start 02/26/17 at 17:00 Albuterol/ Ipratropium (Duoneb Neb) 1 ampule Q4HR NEB INH ; Start 02/26/17 at 16:00; Stop 02/26/17 at 17:18; Status DC Albuterol Sulfate (Albuterol Neb) 2.5 mg Q2HR NEB PRN INH SHORTNESS OF BREATH; Start 02/26/17 at 16:00; Stop 02/26/17 at 17:18; Status DC Flumazenil (Romazicon Inj) 0.2 mg Q1M PRN IV PUSH SEE LABEL COMMENTS; Start at 16:15 Lorazepam (Ativan) 1 mg Q4H PRN PO CIWA 8 - 10 Last administered on 02/27/17 23:15; Start 02/26/17 at 16:15 Lorazepam (Ativan Inj) 1 mg Q4H PRN IV PUSH CIWA 8 - 10 Last administered on 15:39; Start 02/26/17 at 16:15 Lorazepam (Ativan) 2 mg Q2H PRN PO CIWA 11-14; Start 02/26/17 at 16:15 Lorazepam (Ativan Inj) 2 mg Q2H PRN IV PUSH CIWA 11-14 Last administered on 05:18; Start 02/26/17 at 16:15 Lorazepam (Ativan Inj) 2 mg Q1H PRN IV PUSH CIWA 15-20 Last administered on 19:44; Start 02/26/17 at 16:15 Lorazepam (Ativan Inj) 2 mg Q15M PRN IV PUSH CIWA > 20; Start 02/26/17 at 16:15 Albuterol/ Ipratropium (Duoneb Neb) 1 ampule QID NEB NEB Last administered on 03/01/17 07:23; Start 02/26/17 at 20:00 Albuterol/ Ipratropium (Duoneb Neb) 1 ampule Q2HR NEB PRN NEB short of breath Last administered on 02/28/17 03:58; Start 02/26/17 at 17:15 Methylprednisolone Sodium Succinate 60 mg 60 mg Q6HR IV PUSH Last administered on 03/01/17 05:44; Start 02/26/17 at 18:00 Levofloxacin/ Dextrose 150 ml @ 100 mls/hr Q24H IV ; Start 02/26/17 at 18:00; Status Cancel Levofloxacin/ Dextrose (Levaquin 500 Mg Premix Inj) 100 ml @ 100 mls/hr Q24H IV Last administered on 02/27/17 18:00; Start 02/26/17 at 18:00; Stop at 09:12; Status DC Clonazepam (KlonoPIN) 1 mg DAILY PO Last administered on 02/28/17 09:32; Start 02/27/17 at 09:00 Non-Formulary Medication 1 tab DAILY PO BPM; Start 02/27/17 at 09:00; Status UNV Lisinopril (Prinivil) 20 mg DAILY PO Last administered on 02/28/17 09:32; Start 02/27/17 at 09:00 Hydrochlorothiazide (Hydrodiuril) 12.5 mg DAILY PO ; Start 02/27/17 at 09:00 Morphine Sulfate (Morphine Inj) 2 mg ONCE ONCE IV PUSH Last administered on 20:16; Start 02/26/17 at 20:00; Stop 02/26/17 at 20:01; Status DC Hydromorphone HCl (Dilaudid Pf Inj) 1 mg ONCE ONCE IV PUSH Last administered on 02/26/17 22:06; Start 02/26/17 at 21:45; Stop 02/26/17 at 21:55; Status DC Pantoprazole Sodium 40 mg 40 mg Q24H IV PUSH Last administered on 02/28/17 01: 26; Start 02/27/17 at 01:00; Stop 02/28/17 at 13:43; Status DC Sodium Chloride (NS 1000 ml Inj) 1,000 ml @ 125 mls/hr Q8H IV Last administered on 02/27/17 09:55; Start 02/27/17 at 09:30; Stop 02/27/17 at 17:29 ; Status DC Nicotine (Habitrol 14 Mg Patch.24 Hr) 1 patch DAILY T-DERMAL Last administered on 02/28/17 09:39; Start 02/27/17 at 10:00 Miscellaneous Information 1 DAILY T-DERMAL Last administered on 02/28/17 09:00 ; Start 02/28/17 at 09:00 Dextrose (D50w (Vial) Inj) 25 ml UNSCH PRN IV PUSH HYPOGLYCEMIA-SEE COMMENTS; Start 02/27/17 at 11:30 Glucagon (Glucagon Inj) 1 mg UNSCH PRN OTHER HYPOGLYCEMIA-SEE COMMENTS; Start 02/27/17 at 11:30 Insulin Human Regular (NovoLIN R SUPPLEMENTAL SCALE) 1 ACHS SLIDING SCALE SQ Last administered on 02/28/17 21:03; Start 02/27/17 at 16:00 Ibuprofen (Motrin) 400 mg Q12H PRN PO PRN PAIN Last administered on 02/27/17 18:15; Start 02/27/17 at 17:00; Stop 02/28/17 at 17:01; Status DC Acetylcysteine (Mucomyst 20% Neb) 2 ml Q6HR NEB NEB Last administered on 07:30; Start 02/27/17 at 22:00 Levofloxacin (Levaquin) 500 mg DAILY@18 PO Last administered on 02/28/17 17:23 ; Start 02/28/17 at 18:00 Pantoprazole Sodium (Protonix) 40 mg DAILY PO ; Start 03/01/17 at 09:00 Hydroxyzine HCl 25 mg 25 mg Q8H PRN PO ANXIETY Last administered on 02/28/17 15:03; Start 02/28/17 at 14:30 Calcium Gluconate/ Dextrose (Calcium Gluconate Inj/D5W 100 ml Inj) 120 ml @ 120 mls/hr ONCE ONCE IV Last administered on 02/28/17 20:20; Start 02/28/17 at 20:00; Stop 02/28/17 at 20:59; Status DC Ketorolac Tromethamine (Toradol Inj) 15 mg ONCE ONCE IM Last administered on 18:52; Start 02/28/17 at 18:00; Stop 02/28/17 at 18:01; Status DC A/P Assessment and Plan A/P Acute exacerbation COPD: will taper down IV steroids- continue neb treatment and antibiotic- walk test today. pulmonary consult appreciated- sleep study as outpatient. advised to quit smoking. Hyperglycemia, steroid induced A1c 6.5- blood sugar expected to improve as steroids beinbg tapered off- f/u with pcp as outpatient Hypocalcemia with elevated PTH vitamin D is pending- will replace and monitor- f/u with endocrinology and this was d/w the patient. Pickwickian syndrome Hypertension; continue lisinopril DVT prophylaxis with Lovenox and SCD Discharge Planning dc home tomorrow if stable. Jhony Bansal MD Mar 01, 2017 09:59
[2017-03-01 10:28] LABS: CALCIUM-PROTEIN CORRECTED 7.6 MG/DL (8.5-10.1)
[2017-03-01] MEDS: clonazePAM 1 MG TAB PO SCH (10:35)
[2017-03-01] MEDS: LISINOPRIL 20 MG TAB PO SCH (10:35)
[2017-03-01] MEDS: PANTOPRAZOLE SOD 40 MG DELAYED RELEASE TAB PO SCH (10:35)
[2017-03-01] MEDS ORDERED: CHOLECALCIFEROL (VIT D3) 1000 UNIT TAB PO SCH (10:36)
[2017-03-01] MEDS: SODIUM CHLORIDE 0.9% FLUSH 10 ML FLUSH IV FLUSH SCH ×2 (10:36→21:28)
[2017-03-01] MEDS: NICOTINE 14 MG/24 HR PATCH T-DERMAL SCH (10:37)
[2017-03-01] MEDS: CHOLECALCIFEROL (VIT D3) 5000 UNIT CAP PO SCH (13:53)
[2017-03-01] MEDS: CALCIUM CARBONATE 1.25 GM (CA 500 MG) TAB PO SCH ×2 (13:53→21:28)
[2017-03-01] MEDS: CHOLECALCIFEROL (VIT D3) 1000 UNIT TAB PO SCH (14:01)
[2017-03-01] MEDS: methylPREDNISolone SOD SUCC 40 MG/1 ML VIAL IV SCH ×2 (14:06→21:28)
[2017-03-01] MEDS ORDERED: KETOROLAC TROMETHAMINE 30 MG/ML (IVP) VIAL IV PUSH ONE (15:45)
[2017-03-01] MEDS: LEVOFLOXACIN 500 MG TAB PO SCH (17:29)
[2017-03-01] MEDS: ENOXAPARIN SODIUM 40 MG/0.4 ML SYRINGE SQ SCH (17:29)
[2017-03-01] MEDS ORDERED: BISACODYL EC 5 MG TABEC PO ONE (22:30)
[2017-03-01] MEDS: LORazepam 1 MG TAB PO PRN (23:16)
[2017-03-02] VITALS (7 sets, daily range): BP systolic 128–161; BP diastolic 71–89; PULSE 73–87; RESP 20–24; TEMP 96–97.8; O2SAT 91–97
[2017-03-02] MEDS: RESP: ACETYLCYSTEINE 20% 30 ML NEB NEB SCH ×4 (04:00→21:00)
[2017-03-02] MEDS: methylPREDNISolone SOD SUCC 40 MG/1 ML VIAL IV SCH ×3 (06:34→21:58)
[2017-03-02] MEDS: SODIUM CHLORIDE 0.9% FLUSH 10 ML FLUSH IV FLUSH PRN ×2 (06:34→13:51)
[2017-03-02] MEDS: INSULIN NovoLIN REGULAR SUPPLEMENTAL SCALE SQ SCH ×4 (06:35→22:04)
[2017-03-02] MEDS: RESP: ALBUTEROL 2.5 MG/IPRATROPIUM 0.5 MG NEB (SCH) NEB ×4 (07:50→19:28)
--- NOTE | 2017-03-02 08:19 | HHI.PR ---
Subjective Remarks in no acute distress. still with exertional dyspnea. says that he gets sob easily on exertion. Objective Vitals Vital Signs Date Time Temp Pulse Resp B/P Pulse Ox O2 Delivery O2 Flow Rate FiO2 03/02/17 07:51 97 21 03/02/17 00:00 96.1 81 22 130/71 95 03/01/17 20:20 95 21 03/01/17 20:00 95.4 85 22 125/71 94 03/01/17 17:08 18 03/01/17 16:00 96.8 85 20 150/75 94 03/01/17 12:00 97.3 87 20 129/67 94 I/O 03/01/17 03/01/17 03/01/17 03/02/17 03/02/17 03/02/17 07:00 15:00 23:00 07:00 15:00 23:00 Intake Total 960 ml 1355 ml 700 ml 420 ml Balance 960 ml 1355 ml 700 ml 420 ml Intake Oral 960 ml 1250 ml 700 ml 420 ml IV Total 105 ml # Voids 3 5 3 2 # Bowel Movements 0 0 0 0 Result Diagram: 02/27/17 0740 03/01/17 0800 Imaging Last Impressions Abdomen X-Ray 02/27/17 0000 Signed Impressions: Service Date/Time: Monday, February 27, 2017 13:08 - CONCLUSION: Normal examination. Cachorro Jones MD Chest X-Ray 02/26/17 1411 Signed Impressions: Service Date/Time: Sunday, February 26, 2017 14:31 - CONCLUSION: No acute cardiopulmonary disease. Israel Agee MD Objective Remarks GENERAL: This is a well-nourished, well-developed patient, in no apparent distress. CARDIOVASCULAR: Regular rate and regular rhythm without murmurs, gallops, or rubs. RESPIRATORY: Clear to auscultation. diminished air entry bilaterally. GASTROINTESTINAL: Abdomen soft, non-tender, nondistended. Normal, active bowel sounds MUSCULOSKELETAL: Extremities without clubbing, cyanosis, or edema. NEURO: Alert & Oriented x4 to person, place, time, situation. Moves all ext x4 Procedures none Medications and IVs Current Medications Sodium Chloride (NS Flush) 2 ml UNSCH PRN IVF FLUSH AFTER USING IV ACCESS; Start 02/26/17 at 14:15; Stop 02/26/17 at 16:39; Status DC Albuterol/ Ipratropium (Duoneb Neb) 1 ampule Q15M INH Last administered on 02/26 14:20; Start 02/26/17 at 14:15; Stop 02/26/17 at 14:46; Status DC Methylprednisolone Sodium Succinate (SoluMEDROL INJ) 125 mg ONCE ONCE IV PUSH Last administered on 02/26/17 14:52; Start 02/26/17 at 14:45; Stop 02/26/17 at 14:46; Status DC Acetaminophen 1000 mg 1,000 mg ONCE ONCE PO Last administered on 02/26/17 15: 07; Start 02/26/17 at 15:00; Stop 02/26/17 at 15:01; Status DC Ceftriaxone Sodium/Sodium Chloride (Rocephin Inj/NS Inj) 100 ml @ 200 mls/hr ONCE ONCE IV Last administered on 02/26/17 16:00; Start 02/26/17 at 15:45; Stop 02/26/17 at 16:14; Status DC Sodium Chloride (NS Flush) 2 ml UNSCH PRN IV FLUSH FLUSH AFTER USING IV ACCESS Last administered on 03/02/17 06:34; Start 02/26/17 at 16:00 Sodium Chloride (NS Flush) 2 ml BID IV FLUSH Last administered on 03/01/17 21: 28; Start 02/26/17 at 21:00 Acetaminophen (Tylenol) 650 mg Q4H PRN PO TEMP > 100.4 Last administered on 23:15; Start 02/26/17 at 16:00 Ondansetron HCl (Zofran Inj) 4 mg Q6H PRN IVP NAUSEA OR VOMITING; Start at 16:00 Enoxaparin Sodium (Lovenox Inj) 40 mg Q24H SQ Last administered on 03/01/17 17 :29; Start 02/26/17 at 17:00 Albuterol/ Ipratropium (Duoneb Neb) 1 ampule Q4HR NEB INH ; Start 02/26/17 at 16:00; Stop 02/26/17 at 17:18; Status DC Albuterol Sulfate (Albuterol Neb) 2.5 mg Q2HR NEB PRN INH SHORTNESS OF BREATH; Start 02/26/17 at 16:00; Stop 02/26/17 at 17:18; Status DC Flumazenil (Romazicon Inj) 0.2 mg Q1M PRN IV PUSH SEE LABEL COMMENTS; Start at 16:15 Lorazepam (Ativan) 1 mg Q4H PRN PO CIWA 8 - 10 Last administered on 03/01/17 23:16; Start 02/26/17 at 16:15 Lorazepam (Ativan Inj) 1 mg Q4H PRN IV PUSH CIWA 8 - 10 Last administered on 15:39; Start 02/26/17 at 16:15 Lorazepam (Ativan) 2 mg Q2H PRN PO CIWA 11-14; Start 02/26/17 at 16:15 Lorazepam (Ativan Inj) 2 mg Q2H PRN IV PUSH CIWA 11-14 Last administered on 05:18; Start 02/26/17 at 16:15 Lorazepam (Ativan Inj) 2 mg Q1H PRN IV PUSH CIWA 15-20 Last administered on 19:44; Start 02/26/17 at 16:15 Lorazepam (Ativan Inj) 2 mg Q15M PRN IV PUSH CIWA > 20; Start 02/26/17 at 16:15 Albuterol/ Ipratropium (Duoneb Neb) 1 ampule QID NEB NEB Last administered on 03/02/17 07:50; Start 02/26/17 at 20:00 Albuterol/ Ipratropium (Duoneb Neb) 1 ampule Q2HR NEB PRN NEB short of breath Last administered on 02/28/17 03:58; Start 02/26/17 at 17:15 Methylprednisolone Sodium Succinate 60 mg 60 mg Q6HR IV PUSH Last administered on 03/01/17 05:44; Start 02/26/17 at 18:00; Stop 03/01/17 at 10:22; Status DC Levofloxacin/ Dextrose 150 ml @ 100 mls/hr Q24H IV ; Start 02/26/17 at 18:00; Status Cancel Levofloxacin/ Dextrose (Levaquin 500 Mg Premix Inj) 100 ml @ 100 mls/hr Q24H IV Last administered on 02/27/17 18:00; Start 02/26/17 at 18:00; Stop at 09:12; Status DC Clonazepam (KlonoPIN) 1 mg DAILY PO Last administered on 03/01/17 10:35; Start 02/27/17 at 09:00 Non-Formulary Medication 1 tab DAILY PO BPM; Start 02/27/17 at 09:00; Status UNV Lisinopril (Prinivil) 20 mg DAILY PO Last administered on 03/01/17 10:35; Start 02/27/17 at 09:00 Hydrochlorothiazide (Hydrodiuril) 12.5 mg DAILY PO ; Start 02/27/17 at 09:00 Morphine Sulfate (Morphine Inj) 2 mg ONCE ONCE IV PUSH Last administered on 20:16; Start 02/26/17 at 20:00; Stop 02/26/17 at 20:01; Status DC Hydromorphone HCl (Dilaudid Pf Inj) 1 mg ONCE ONCE IV PUSH Last administered on 02/26/17 22:06; Start 02/26/17 at 21:45; Stop 02/26/17 at 21:55; Status DC Pantoprazole Sodium 40 mg 40 mg Q24H IV PUSH Last administered on 02/28/17 01: 26; Start 02/27/17 at 01:00; Stop 02/28/17 at 13:43; Status DC Sodium Chloride (NS 1000 ml Inj) 1,000 ml @ 125 mls/hr Q8H IV Last administered on 02/27/17 09:55; Start 02/27/17 at 09:30; Stop 02/27/17 at 17:29 ; Status DC Nicotine (Habitrol 14 Mg Patch.24 Hr) 1 patch DAILY T-DERMAL Last administered on 03/01/17 10:37; Start 02/27/17 at 10:00 Miscellaneous Information 1 DAILY T-DERMAL Last administered on 02/28/17 09:00 ; Start 02/28/17 at 09:00 Dextrose (D50w (Vial) Inj) 25 ml UNSCH PRN IV PUSH HYPOGLYCEMIA-SEE COMMENTS; Start 02/27/17 at 11:30 Glucagon (Glucagon Inj) 1 mg UNSCH PRN OTHER HYPOGLYCEMIA-SEE COMMENTS; Start 02/27/17 at 11:30 Insulin Human Regular (NovoLIN R SUPPLEMENTAL SCALE) 1 ACHS SLIDING SCALE SQ Last administered on 03/01/17 21:42; Start 02/27/17 at 16:00 Ibuprofen (Motrin) 400 mg Q12H PRN PO PRN PAIN Last administered on 02/27/17 18:15; Start 02/27/17 at 17:00; Stop 02/28/17 at 17:01; Status DC Acetylcysteine (Mucomyst 20% Neb) 2 ml Q6HR NEB NEB Last administered on 07:30; Start 02/27/17 at 22:00 Levofloxacin (Levaquin) 500 mg DAILY@18 PO Last administered on 03/01/17 17:29 ; Start 02/28/17 at 18:00 Pantoprazole Sodium (Protonix) 40 mg DAILY PO Last administered on 03/01/17 10 :35; Start 03/01/17 at 09:00 Hydroxyzine HCl 25 mg 25 mg Q8H PRN PO ANXIETY Last administered on 02/28/17 15:03; Start 02/28/17 at 14:30 Calcium Gluconate/ Dextrose (Calcium Gluconate Inj/D5W 100 ml Inj) 120 ml @ 120 mls/hr ONCE ONCE IV Last administered on 02/28/17 20:20; Start 02/28/17 at 20:00; Stop 02/28/17 at 20:59; Status DC Ketorolac Tromethamine (Toradol Inj) 15 mg ONCE ONCE IM Last administered on 18:52; Start 02/28/17 at 18:00; Stop 02/28/17 at 18:01; Status DC Methylprednisolone Sodium Succinate 20 mg 20 mg Q8HR IV Last administered on 06:34; Start 03/01/17 at 14:00 Calcium Gluconate/ Dextrose (Calcium Gluconate Inj/D5W 100 ml Inj) 120 ml @ 120 mls/hr ONCE ONCE IV Last administered on 03/01/17 12:25; Start 03/01/17 at 10:00; Stop 03/01/17 at 10:59; Status DC Cholecalciferol (Vitamin D3) 6,000 units DAILY PO ; Start 03/01/17 at 10:00; Stop 03/01/17 at 12:40; Status DC Calcium Carbonate (Oscal) 500 mg Q12HR PO Last administered on 03/01/17 21:28 ; Start 03/01/17 at 10:00 Cholecalciferol (Vitamin D3) 1,000 units DAILY PO ; Start 03/01/17 at 10:36; Stop 03/01/17 at 12:40; Status DC Cholecalciferol (Vitamin D3) 5,000 units DAILY PO Last administered on 13:53; Start 03/01/17 at 12:40 Cholecalciferol (Vitamin D3) 1,000 units DAILY PO Last administered on 14:01; Start 03/01/17 at 12:40 Ketorolac Tromethamine (Toradol Inj) 15 mg ONCE ONCE IV PUSH Last administered on 03/01/17 16:08; Start 03/01/17 at 15:45; Stop 03/01/17 at 15:46 ; Status DC Bisacodyl (Dulcolax Ec) 5 mg ONCE ONCE PO Last administered on 03/01/17 23:04 ; Start 03/01/17 at 22:30; Stop 03/01/17 at 22:38; Status DC A/P Assessment and Plan A/P Acute exacerbation COPD: will continue IV steroids- continue neb treatment and antibiotic- passed the walk test. pulmonary consult appreciated- sleep study as outpatient. advised to quit smoking. Hyperglycemia, steroid induced A1c 6.5- blood sugar expected to improve as steroids beinbg tapered off- f/u with pcp as outpatient Hypocalcemia with elevated PTH due to vitamin D deficiency will replace and monitor- f/u with endocrinology and this was d/w the patient. Pickwickian syndrome Hypertension; continue lisinopril DVT prophylaxis with Lovenox and SCD Discharge Planning dc home tomorrow if stable. Jhony Bansal MD Mar 02, 2017 08:19
[2017-03-02] MEDS: CHOLECALCIFEROL (VIT D3) 5000 UNIT CAP PO SCH (08:38)
[2017-03-02] MEDS: CHOLECALCIFEROL (VIT D3) 1000 UNIT TAB PO SCH (08:38)
[2017-03-02] MEDS: PANTOPRAZOLE SOD 40 MG DELAYED RELEASE TAB PO SCH (08:38)
[2017-03-02] MEDS: LISINOPRIL 20 MG TAB PO SCH (08:38)
[2017-03-02] MEDS: CALCIUM CARBONATE 1.25 GM (CA 500 MG) TAB PO SCH ×2 (08:39→21:57)
[2017-03-02] MEDS: clonazePAM 1 MG TAB PO SCH (08:39)
[2017-03-02] MEDS: SODIUM CHLORIDE 0.9% FLUSH 10 ML FLUSH IV FLUSH SCH ×2 (08:39→21:58)
[2017-03-02] MEDS: NICOTINE 14 MG/24 HR PATCH T-DERMAL SCH (08:43)
[2017-03-02] MEDS: REMOVE OLD PATCH T-DERMAL SCH (08:44)
[2017-03-02 09:07] LABS: POTASSIUM 4.2 MEQ/L (3.5-5.1)
[2017-03-02 09:37] LABS: BICARBONATE 29.6 MEQ/L (21.0-32.0)
[2017-03-02] MEDS: ENOXAPARIN SODIUM 40 MG/0.4 ML SYRINGE SQ SCH (17:29)
[2017-03-02] MEDS: LEVOFLOXACIN 500 MG TAB PO SCH (17:30)
[2017-03-02] MEDS: ACETAMINOPHEN 325 MG TAB PO PRN (17:38)
[2017-03-03] VITALS: BP 145/79; PULSE 88; RESP 20; TEMP 96.2; O2SAT 93
[2017-03-03] MEDS: RESP: ACETYLCYSTEINE 20% 30 ML NEB NEB SCH (04:00)
[2017-03-03] MEDS: methylPREDNISolone SOD SUCC 40 MG/1 ML VIAL IV SCH (05:20)
[2017-03-03] MEDS: INSULIN NovoLIN REGULAR SUPPLEMENTAL SCALE SQ SCH (06:41)
[2017-03-03 08:00] VITALS: BP 149/89; PULSE 70; RESP 19; TEMP 97.9; O2SAT 94
--- NOTE | 2017-03-03 08:17 | HHI.PR ---
Subjective Remarks in no acute distress. but says that he had some sob last night. afebrile. no other complaints. Objective Vitals Vital Signs Date Time Temp Pulse Resp B/P Pulse Ox O2 Delivery O2 Flow Rate FiO2 03/03/17 00:00 96.2 88 20 145/79 93 03/02/17 20:00 96.0 87 20 128/74 91 03/02/17 19:27 94 21 03/02/17 16:00 97.8 85 22 148/88 95 03/02/17 12:00 97.4 82 22 139/82 94 I/O 03/02/17 03/02/17 03/02/17 03/03/17 03/03/17 03/03/17 07:00 15:00 23:00 07:00 15:00 23:00 Intake Total 420 ml 2 ml 480 ml Output Total 1 ml Balance 420 ml 2 ml 479 ml Intake Oral 420 ml 480 ml IV Total 2 ml Output Urine Total 1 ml # Voids 2 # Bowel Movements 0 0 Result Diagram: 02/27/17 0740 03/02/17 0845 Imaging Last Impressions Abdomen X-Ray 02/27/17 0000 Signed Impressions: Service Date/Time: Monday, February 27, 2017 13:08 - CONCLUSION: Normal examination. Cachorro Jones MD Chest X-Ray 02/26/17 1411 Signed Impressions: Service Date/Time: Sunday, February 26, 2017 14:31 - CONCLUSION: No acute cardiopulmonary disease. Israel Agee MD Objective Remarks GENERAL: This is a well-nourished, well-developed patient, in no apparent distress. CARDIOVASCULAR: Regular rate and regular rhythm without murmurs, gallops, or rubs. RESPIRATORY: Clear to auscultation. diminished air entry bilaterally. GASTROINTESTINAL: Abdomen soft, non-tender, nondistended. Normal, active bowel sounds MUSCULOSKELETAL: Extremities without clubbing, cyanosis, or edema. NEURO: Alert & Oriented x4 to person, place, time, situation. Moves all ext x4 Procedures none Medications and IVs Current Medications Sodium Chloride (NS Flush) 2 ml UNSCH PRN IVF FLUSH AFTER USING IV ACCESS; Start 02/26/17 at 14:15; Stop 02/26/17 at 16:39; Status DC Albuterol/ Ipratropium (Duoneb Neb) 1 ampule Q15M INH Last administered on 02/26 14:20; Start 02/26/17 at 14:15; Stop 02/26/17 at 14:46; Status DC Methylprednisolone Sodium Succinate (SoluMEDROL INJ) 125 mg ONCE ONCE IV PUSH Last administered on 02/26/17 14:52; Start 02/26/17 at 14:45; Stop 02/26/17 at 14:46; Status DC Acetaminophen 1000 mg 1,000 mg ONCE ONCE PO Last administered on 02/26/17 15: 07; Start 02/26/17 at 15:00; Stop 02/26/17 at 15:01; Status DC Ceftriaxone Sodium/Sodium Chloride (Rocephin Inj/NS Inj) 100 ml @ 200 mls/hr ONCE ONCE IV Last administered on 02/26/17 16:00; Start 02/26/17 at 15:45; Stop 02/26/17 at 16:14; Status DC Sodium Chloride (NS Flush) 2 ml UNSCH PRN IV FLUSH FLUSH AFTER USING IV ACCESS Last administered on 03/02/17 13:51; Start 02/26/17 at 16:00 Sodium Chloride (NS Flush) 2 ml BID IV FLUSH Last administered on 03/02/17 21: 58; Start 02/26/17 at 21:00 Acetaminophen (Tylenol) 650 mg Q4H PRN PO TEMP > 100.4 Last administered on 17:38; Start 02/26/17 at 16:00 Ondansetron HCl (Zofran Inj) 4 mg Q6H PRN IVP NAUSEA OR VOMITING; Start at 16:00 Enoxaparin Sodium (Lovenox Inj) 40 mg Q24H SQ Last administered on 03/02/17 17 :29; Start 02/26/17 at 17:00 Albuterol/ Ipratropium (Duoneb Neb) 1 ampule Q4HR NEB INH ; Start 02/26/17 at 16:00; Stop 02/26/17 at 17:18; Status DC Albuterol Sulfate (Albuterol Neb) 2.5 mg Q2HR NEB PRN INH SHORTNESS OF BREATH; Start 02/26/17 at 16:00; Stop 02/26/17 at 17:18; Status DC Flumazenil (Romazicon Inj) 0.2 mg Q1M PRN IV PUSH SEE LABEL COMMENTS; Start at 16:15 Lorazepam (Ativan) 1 mg Q4H PRN PO CIWA 8 - 10 Last administered on 03/01/17 23:16; Start 02/26/17 at 16:15 Lorazepam (Ativan Inj) 1 mg Q4H PRN IV PUSH CIWA 8 - 10 Last administered on 15:39; Start 02/26/17 at 16:15 Lorazepam (Ativan) 2 mg Q2H PRN PO CIWA 11-14; Start 02/26/17 at 16:15 Lorazepam (Ativan Inj) 2 mg Q2H PRN IV PUSH CIWA 11-14 Last administered on 05:18; Start 02/26/17 at 16:15 Lorazepam (Ativan Inj) 2 mg Q1H PRN IV PUSH CIWA 15-20 Last administered on 19:44; Start 02/26/17 at 16:15 Lorazepam (Ativan Inj) 2 mg Q15M PRN IV PUSH CIWA > 20; Start 02/26/17 at 16:15 Albuterol/ Ipratropium (Duoneb Neb) 1 ampule QID NEB NEB Last administered on 03/02/17 19:28; Start 02/26/17 at 20:00; Stop 03/02/17 at 20:00; Status DC Albuterol/ Ipratropium (Duoneb Neb) 1 ampule Q2HR NEB PRN NEB short of breath Last administered on 02/28/17 03:58; Start 02/26/17 at 17:15 Methylprednisolone Sodium Succinate 60 mg 60 mg Q6HR IV PUSH Last administered on 03/01/17 05:44; Start 02/26/17 at 18:00; Stop 03/01/17 at 10:22; Status DC Levofloxacin/ Dextrose 150 ml @ 100 mls/hr Q24H IV ; Start 02/26/17 at 18:00; Status Cancel Levofloxacin/ Dextrose (Levaquin 500 Mg Premix Inj) 100 ml @ 100 mls/hr Q24H IV Last administered on 02/27/17 18:00; Start 02/26/17 at 18:00; Stop at 09:12; Status DC Clonazepam (KlonoPIN) 1 mg DAILY PO Last administered on 03/02/17 08:39; Start 02/27/17 at 09:00 Non-Formulary Medication 1 tab DAILY PO BPM; Start 02/27/17 at 09:00; Status UNV Lisinopril (Prinivil) 20 mg DAILY PO Last administered on 03/02/17 08:38; Start 02/27/17 at 09:00 Hydrochlorothiazide (Hydrodiuril) 12.5 mg DAILY PO ; Start 02/27/17 at 09:00 Morphine Sulfate (Morphine Inj) 2 mg ONCE ONCE IV PUSH Last administered on 20:16; Start 02/26/17 at 20:00; Stop 02/26/17 at 20:01; Status DC Hydromorphone HCl (Dilaudid Pf Inj) 1 mg ONCE ONCE IV PUSH Last administered on 02/26/17 22:06; Start 02/26/17 at 21:45; Stop 02/26/17 at 21:55; Status DC Pantoprazole Sodium 40 mg 40 mg Q24H IV PUSH Last administered on 02/28/17 01: 26; Start 02/27/17 at 01:00; Stop 02/28/17 at 13:43; Status DC Sodium Chloride (NS 1000 ml Inj) 1,000 ml @ 125 mls/hr Q8H IV Last administered on 02/27/17 09:55; Start 02/27/17 at 09:30; Stop 02/27/17 at 17:29 ; Status DC Nicotine (Habitrol 14 Mg Patch.24 Hr) 1 patch DAILY T-DERMAL Last administered on 03/02/17 08:43; Start 02/27/17 at 10:00 Miscellaneous Information 1 DAILY T-DERMAL Last administered on 03/02/17 08:44 ; Start 02/28/17 at 09:00 Dextrose (D50w (Vial) Inj) 25 ml UNSCH PRN IV PUSH HYPOGLYCEMIA-SEE COMMENTS; Start 02/27/17 at 11:30 Glucagon (Glucagon Inj) 1 mg UNSCH PRN OTHER HYPOGLYCEMIA-SEE COMMENTS; Start 02/27/17 at 11:30 Insulin Human Regular (NovoLIN R SUPPLEMENTAL SCALE) 1 ACHS SLIDING SCALE SQ Last administered on 03/02/17 22:04; Start 02/27/17 at 16:00 Ibuprofen (Motrin) 400 mg Q12H PRN PO PRN PAIN Last administered on 02/27/17 18:15; Start 02/27/17 at 17:00; Stop 02/28/17 at 17:01; Status DC Acetylcysteine (Mucomyst 20% Neb) 2 ml Q6HR NEB NEB Last administered on 07:30; Start 02/27/17 at 22:00 Levofloxacin (Levaquin) 500 mg DAILY@18 PO Last administered on 03/02/17 17:30 ; Start 02/28/17 at 18:00 Pantoprazole Sodium (Protonix) 40 mg DAILY PO Last administered on 03/02/17 08 :38; Start 03/01/17 at 09:00 Hydroxyzine HCl 25 mg 25 mg Q8H PRN PO ANXIETY Last administered on 02/28/17 15:03; Start 02/28/17 at 14:30 Calcium Gluconate/ Dextrose (Calcium Gluconate Inj/D5W 100 ml Inj) 120 ml @ 120 mls/hr ONCE ONCE IV Last administered on 02/28/17 20:20; Start 02/28/17 at 20:00; Stop 02/28/17 at 20:59; Status DC Ketorolac Tromethamine (Toradol Inj) 15 mg ONCE ONCE IM Last administered on 18:52; Start 02/28/17 at 18:00; Stop 02/28/17 at 18:01; Status DC Methylprednisolone Sodium Succinate 20 mg 20 mg Q8HR IV Last administered on 05:20; Start 03/01/17 at 14:00 Calcium Gluconate/ Dextrose (Calcium Gluconate Inj/D5W 100 ml Inj) 120 ml @ 120 mls/hr ONCE ONCE IV Last administered on 03/01/17 12:25; Start 03/01/17 at 10:00; Stop 03/01/17 at 10:59; Status DC Cholecalciferol (Vitamin D3) 6,000 units DAILY PO ; Start 03/01/17 at 10:00; Stop 03/01/17 at 12:40; Status DC Calcium Carbonate (Oscal) 500 mg Q12HR PO Last administered on 03/02/17 21:57 ; Start 03/01/17 at 10:00 Cholecalciferol (Vitamin D3) 1,000 units DAILY PO ; Start 03/01/17 at 10:36; Stop 03/01/17 at 12:40; Status DC Cholecalciferol (Vitamin D3) 5,000 units DAILY PO Last administered on 08:38; Start 03/01/17 at 12:40 Cholecalciferol (Vitamin D3) 1,000 units DAILY PO Last administered on 08:38; Start 03/01/17 at 12:40 Ketorolac Tromethamine (Toradol Inj) 15 mg ONCE ONCE IV PUSH Last administered on 03/01/17 16:08; Start 03/01/17 at 15:45; Stop 03/01/17 at 15:46 ; Status DC Bisacodyl (Dulcolax Ec) 5 mg ONCE ONCE PO Last administered on 03/01/17 23:04 ; Start 03/01/17 at 22:30; Stop 03/01/17 at 22:38; Status DC A/P Assessment and Plan A/P Acute exacerbation COPD: change to po steroids- continue neb treatment and antibiotic- repeat the walk test. pulmonary consult appreciated- sleep study as outpatient. advised to quit smoking. Hyperglycemia, steroid induced A1c 6.5- blood sugar expected to improve as steroids being tapered off- f/u with pcp as outpatient d/w the patient. Hypocalcemia with elevated PTH due to vitamin D deficiency will replace and monitor- f/u with endocrinology and this was d/w the patient. Pickwickian syndrome Hypertension; continue lisinopril DVT prophylaxis with Lovenox and SCD Discharge Planning dc home today after walk test. see med list. d/w the patient. time spent 32 min. Jhony Bansal MD Mar 03, 2017 08:17
[2017-03-03] MEDS ORDERED: IPRASOL NEB (08:20)
[2017-03-03] MEDS ORDERED: PRED5TAB PO (08:20)
[2017-03-03] MEDS ORDERED: LEVA500T20 PO (08:20)
[2017-03-03] MEDS ORDERED: CHOL5000 PO (08:20)
--- NOTE | 2017-03-03 08:20 | HHI.DCPOC ---
Discharge Care Plan Diagnosis: (1) COPD exacerbation Your Health Problems Are: Cough Shortness of Breath Goals to Promote Your Health * To prevent worsening of your condition and complications * To maintain your health at the optimal level Directions to Meet Your Goals Take your medications as prescribed Follow your dietary instruction Follow activity as directed Keep your appointments as scheduled Take your immunizations and boosters as scheduled If your symptoms worsen call your PCP, if no PCP go to Urgent Care Center or Emergency Room Smoking is Dangerous to Your Health. Avoid second hand smoke Call the 24-hour hour crisis hotline for domestic abuse at Jhony Bansal MD Mar 03, 2017 08:20
--- NOTE | 2017-03-03 08:21 | HHI.DS ---
Discharge Summary Admission Date Feb 26, 2017 at 15:45 Discharge Date: Mar 03, 2017 Admitting Diagnosis COPD EXACERBATION (1) COPD exacerbation ICD Code: J44.1 Diagnosis: Principal Procedures none Brief History - From Admission 51 years old morbidly obese man with the habitus of pickwickian syndrome and history of COPD current smoker, presented to the ED complaining of worsening short of breath for the last few days along with worsening cough and phlegm production "jellyfish phlegm "patient denied fever or chills, he stated he had a fluid in his lungs previously and that was treated by Dr. Nuñez at [facility]. Patient denied recent sore throat or flulike syndrome, note dominant pain diarrhea or constipation dysuria urgency or frequency CBC/BMP: 02/27/17 0740 03/02/17 0845 Significant Findings Laboratory Tests Test 02/28/17 02/28/17 03/01/17 03/01/17 09:10 18:20 08:00 14:00 Parathyroid Hormone (Intact) 243.5 PG/ML (12.4-76.8) Calcium Level 7.0 MG/DL 7.0 MG/DL (8.5-10.1) (8.5-10.1) 25-Hydroxy Vitamin D Total 13.9 ng/ML (30-100) Vitamin D 1,25-Dihydroxy 125 pg/mL (18-64) Lactic Acid Level 3.7 mmol/L 3.3 mmol/L (0.4-2.0) (0.4-2.0) Chloride Level 108 MEQ/L (98-107) Blood Urea Nitrogen 23 MG/DL (7-18) Random Glucose 182 MG/DL (74-106) Protein Corrected Calcium 7.6 MG/DL (8.5-10.1) Total Protein 5.9 GM/DL (6.4-8.2) Test 03/02/17 08:45 Blood Urea Nitrogen 22 MG/DL (7-18) Random Glucose 156 MG/DL (74-106) Lactic Acid Level 3.0 mmol/L (0.4-2.0) Calcium Level 7.9 MG/DL (8.5-10.1) Imaging Last Impressions Abdomen X-Ray 02/27/17 0000 Signed Impressions: Service Date/Time: Monday, February 27, 2017 13:08 - CONCLUSION: Normal examination. Cachorro Jones MD Chest X-Ray 02/26/17 1411 Signed Impressions: Service Date/Time: Sunday, February 26, 2017 14:31 - CONCLUSION: No acute cardiopulmonary disease. Israel Agee MD PE at Discharge GENERAL: This is a well-nourished, well-developed patient, in no apparent distress. CARDIOVASCULAR: Regular rate and regular rhythm without murmurs, gallops, or rubs. RESPIRATORY: Clear to auscultation. diminished air entry bilaterally. GASTROINTESTINAL: Abdomen soft, non-tender, nondistended. Normal, active bowel sounds MUSCULOSKELETAL: Extremities without clubbing, cyanosis, or edema. NEURO: Alert & Oriented x4 to person, place, time, situation. Moves all ext x4 Hospital Course Acute exacerbation COPD: change to po steroids- continue neb treatment and antibiotic- passed the repeated walk test. pulmonary consult appreciated- sleep study as outpatient. advised to quit smoking. Hyperglycemia, steroid induced A1c 6.5- blood sugar expected to improve as steroids being tapered off- f/u with pcp as outpatient d/w the patient. Hypocalcemia with elevated PTH due to vitamin D deficiency will replace and monitor- f/u with endocrinology and this was d/w the patient. Pickwickian syndrome Hypertension; continue lisinopril DVT prophylaxis with Lovenox and SCD Pt Condition on Discharge: Fair Discharge Disposition: Discharge Home Discharge Time: > 30 minutes Discharge Instructions DIET: Follow Instructions for: Heart Healthy Diet Activities you can perform: Regular-No Restrictions Follow up Referrals: PCP Follow-up Pulmonology New Medications: Nebulizer (Nebulizer) 1 Mis Mis 1 EA .ROUTE DIRECTED Breathing Treatment #1 Ref 0 EA Prednisone (Prednisone) 5 Mg Tab 5 MG PO DIRECTED 40 mg po daily for two days then 30 mg po daily for two days then 20 mg po daily for two days then 10 mg po daily for two days then 5 mg po daily for two days then stop. copd Days 10 Ref 0 TAB Tiotropium Inh (Spiriva Handihaler) 18 Mcg Cap 18 MCG INH DAILY 1 capsule = 18 mcg COPD #1 Ref 0 CAP Cholecalciferol (Vitamin D3) 5,000 Unit Cap 5000 UNITS PO DAILY vitamin ssupplement Days 30 Ref 0 CAP Ipratropium-Albuterol Neb (Duoneb) 0.5-2.5 Mg/3 Ml Neb 1 AMPULE NEB Q6HR PRN SHORTNESS OF BREATH Days 14 Ref 0 ML Levofloxacin (Levaquin) 500 Mg Tablet 500 MG PO DAILY@18 antibiotic Days 5 Ref 0 TAB Oyster Shell (Calcium Oyster Shell) 500 Mg Tab 500 MG PO Q12HR calcium Days 30 Ref 0 TAB Continued Medications: Clonazepam (Clonazepam) 1 Mg Tab 1 MG PO DAILY Anxiety and/or Insomnia #60 Ref 0 TAB Lisinopril-Hctz (Lisinopril-Hctz) 20-12.5 Mg Tab 1 TAB PO DAILY Blood Pressure Management #30 Ref 0 TAB Jhony Bansal MD Mar 03, 2017 08:21
[2017-03-03] MEDS ORDERED: NEBULIZER1 MI1 (08:22)
[2017-03-03] MEDS ORDERED: CALC500T30 PO (08:22)
[2017-03-03] MEDS ORDERED: SPIRCAP INH (08:26)
[2017-03-03] MEDS: LISINOPRIL 20 MG TAB PO SCH (08:40)
[2017-03-03] MEDS: CHOLECALCIFEROL (VIT D3) 5000 UNIT CAP PO SCH (08:40)
[2017-03-03] MEDS: CALCIUM CARBONATE 1.25 GM (CA 500 MG) TAB PO SCH (08:41)
[2017-03-03] MEDS: CHOLECALCIFEROL (VIT D3) 1000 UNIT TAB PO SCH (08:41)
[2017-03-03] MEDS: clonazePAM 1 MG TAB PO SCH (08:41)
[2017-03-03] MEDS: PANTOPRAZOLE SOD 40 MG DELAYED RELEASE TAB PO SCH (08:41)
[2017-03-03] MEDS: NICOTINE 14 MG/24 HR PATCH T-DERMAL SCH (08:41)
[2017-03-03] MEDS: SODIUM CHLORIDE 0.9% FLUSH 10 ML FLUSH IV FLUSH SCH (08:41)
== END 2017-03-03 10:21 | disposition home or self-care (01) ==
LOC: PHED 13:57 → PHEDA 15:45 → PH3A 18:37
PROVIDERS: ADMIT Internal Medicine; ATTEND Internal Medicine
DX: J44.1 Chronic obstructive pulmonary disease with (acute) exacerbation (principal); R73.9 Hyperglycemia, unspecified; T38.0X5A Adverse effect of glucocorticoids and synthetic analogues, initial encounter; E87.2 Acidosis; R10.9 Unspecified abdominal pain; R11.10 Vomiting, unspecified; R50.9 Fever, unspecified; R00.0 Tachycardia, unspecified; I11.0 Hypertensive heart disease with heart failure; I50.9 Heart failure, unspecified; E78.00 Pure hypercholesterolemia, unspecified; G47.33 Obstructive sleep apnea (adult) (pediatric); E83.51 Hypocalcemia; E55.9 Vitamin D deficiency, unspecified; F41.9 Anxiety disorder, unspecified; E66.2 Morbid (severe) obesity with alveolar hypoventilation; F17.200 Nicotine dependence, unspecified, uncomplicated; Z79.899 Other long term (current) drug therapy
CPT/HCPCS: 71010; 74000; 80048; 80053; 81001; 82306; 82308; 82310; 82550; 82552; 82652; 82948; 83036; 83605; 83735; 83880; 83970; 84100; 84155; 84484; 85025; 87040; 87070; 87205; 93005; 94620; 94640; 94664; 96374; 99285; C9113; G0378; J0610; J0696; J1170; J1650; J1885; J1956; J2060; J2270; J2920; J2930; J7030; J7608

== ENCOUNTER 2018-01-15 23:20 | Observation (INO) | payer SELFPAY ==
[~2018-01-15] VITALS: Ht 180.3 cm; Wt 136.0 kg
[~2018-01-15 23:20] MED LIST changes: -BACT800T5 PO; +CALC500T30 PO; +CHOL5000 PO; -DOXY100C PO; -IBUP800T23 PO; +IPRASOL NEB; +LEVA500T33 PO; +NEBULIZER1 MI1; +PRED5TAB PO; +SPIRCAP INH
[2018-01-15 23:22] VITALS: BP 178/101; PULSE 95; RESP 22; TEMP 98.6; O2SAT 96
[2018-01-15 23:41] VITALS: BP 133/80; PULSE 87; RESP 20; O2SAT 96
[2018-01-16] VITALS (10 sets, daily range): BP systolic 130–174; BP diastolic 72–99; PULSE 71–86; RESP 16–20; TEMP 96.1–97.7; O2SAT 93–96
--- NOTE | 2018-01-16 00:06 | PD ---
HPI Chief Complaint: Chest Pain Time Seen by Provider: 23:33 Travel History International Travel<30 days: No Contact w/Intl Traveler<30days: No Traveled to known affect area: No History of Present Illness HPI The patient is a 52-year-old male who presents to the emergency department for shortness of breath and chest pain. The patient notes a 2 week history of exertional shortness of breath, worse with ambulation, now to the point where he is short of breath while taking a shower. Earlier today he developed left scapular pain that radiated to the chest and down the left arm. The patient does have a history of hypertension, tobacco use, and elevated blood glucose while taking steroids for COPD. He denies any known history of hyperlipidemia or known coronary artery disease. The patient states he was going to be scheduled for an outpatient sleep study for possible sleep apnea, does not currently use a CPAP machine. The patient's symptoms are worse with exertion, alleviated at rest. He denies any associated nausea, vomiting, or diaphoresis. He also complains of shortness of breath while lying supine, has recently been lying on his abdomen and states he has significant nasal drainage from lying on his abdomen. He does not currently have a primary physician. He does have a history of COPD and tobacco use, last smoked a cigarette while in route to the hospital. Symptoms are moderate. 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) Cardiovascular Problems: Yes High Cholesterol: Yes Chemotherapy: No Chest Pain: Yes (occassionally) Congestive Heart Failure: Yes COPD: No Cerebrovascular Accident: No Coronary Artery Disease: No Diabetes: No Diminished Hearing: No Endocrine: No Gastrointestinal Disorders: Yes (CALDERA'S ESOPHAGUS, LIVER CYSTS X3) Genitourinary: No Hypertension: Yes Immune Disorder: No Kidney Stones: Yes Musculoskeletal: No Neurologic: No Psychiatric: Yes Reproductive: No Respiratory: Yes (COPD) Immunizations Current: Yes Migraines: No Pneumonia: Yes Radiation Therapy: No Renal Failure: No Seizures: No Sickle Cell Disease: No Sleep Apnea: Yes Thyroid Disease: No Ulcer: No Tetanus Vaccination: < 5 Years Influenza Vaccination: No Past Surgical History Abdominal Surgery: Yes (ESOPHOGUS SURG., POLYPS REMOVED, HERNIA) AICD: No Arteriovenous Shunt: No Cardiac Surgery: No Ear Surgery: No Endocrine Surgery: No Eye Surgery: No Genitourinary Surgery: No Gynecologic Surgery: No Insulin Pump: No Joint Replacement: No Oral Surgery: No Pacemaker: No Thoracic Surgery: No Other Surgery: Yes (LUNG SURGERY: LIPOMA REMOVED, RIGHT SIDE, AGE 30) Social History Alcohol Use: Yes (12 BEERS DAILY) Tobacco Use: Yes (1 ppd) Substance Use: No Allergies-Medications (Allergen,Severity, Reaction): Coded Allergies: No Known Allergies (Unverified Adverse Reaction, Unknown, 01/15/18) Reported Meds & Prescriptions Reported Meds & Active Scripts Active Spiriva Handihaler (Tiotropium Inh) 18 Mcg Cap 18 Mcg INH DAILY 1 capsule = 18 mcg Calcium Oyster Shell (Oyster Shell) 500 Mg Tab 500 Mg PO Q12HR 30 Days Nebulizer 1 Mis Mis 1 Ea .ROUTE DIRECTED Duoneb (Ipratropium-Albuterol Neb) 0.5-2.5 Mg/3 Ml Neb 1 Ampule NEB Q6HR PRN 14 Days Vitamin D3 (Cholecalciferol) 5,000 Unit Cap 5,000 Units PO DAILY 30 Days Reported Clonazepam 1 Mg Tab 1 Mg PO DAILY Lisinopril-Hctz 20-12.5 Mg Tab 1 Tab PO DAILY Review of Systems Except as stated in HPI: all other systems reviewed are Neg HENT: Positive: Rhinitis Cardiovascular: Positive: Chest Pain or Discomfort, Dyspnea on exertion Respiratory: Positive: Shortness of Breath Gastrointestinal: No: Nausea, Vomiting, Abdominal Pain Genitourinary: Positive: Hematuria Musculoskeletal: Positive: Weakness, No: Edema Neurologic: No: Dizziness Physical Exam Narrative GENERAL: Awake, alert, pleasant 52-year-old male who appears his stated age and is in mild respiratory distress while talking at bedside. SKIN: Focused skin assessment warm/dry. HEAD: Atraumatic. Normocephalic. EYES: Pupils equal and round. No scleral icterus. No injection or drainage. ENT: No nasal bleeding or discharge. Mucous membranes pink and moist. NECK: Trachea midline. No JVD. CARDIOVASCULAR: Regular rate and rhythm. No murmur appreciated. RESPIRATORY: No accessory muscle use. Clear to auscultation. Breath sounds equal bilaterally. GASTROINTESTINAL: Abdomen soft, obese, no rebound tenderness. MUSCULOSKELETAL: No obvious deformities. No clubbing. No cyanosis. No edema. NEUROLOGICAL: Awake and alert. No obvious cranial nerve deficits. Motor grossly within normal limits. Normal speech. PSYCHIATRIC: Appropriate mood and affect; insight and judgment normal. Data Data Last Documented VS Vital Signs Date Time Temp Pulse Resp B/P (MAP) Pulse Ox O2 Delivery O2 Flow Rate FiO2 01/16/18 00:08 86 20 130/99 (109) 95 Room Air 136/90 (105) 01/15/18 23:22 98.6 Orders Orders Electrocardiogram (01/16/18 00:02) B-Type Natriuretic Peptide (01/16/18 00:02) Ckmb (Isoenzyme) Profile (01/16/18 00:02) Complete Blood Count With Diff (01/16/18 00:) Comprehensive Metabolic Panel (01/16/18 00:02) Magnesium (Mg) (01/16/18 00:02) Prothrombin Time / Inr (Pt) (01/16/18 00:02) Act Partial Throm Time (Ptt) (01/16/18 00:02) Troponin I (01/16/18 00:02) Ecg Monitoring (01/16/18 00:02) Bilateral Bp Monitoring (01/16/18 00:02) Iv Access Insert/Monitor (01/16/18 00:02) Oximetry (01/16/18 00:02) Oxygen Administration (01/16/18 00:02) Nitroglycerin 2% Oint (Nitroglycerin 2% (01/16/18 00:15) Sodium Chloride 0.9% Flush (Ns Flush) (01/16/18 00:15) Chest, Pa & Lat (01/16/18 00:02) Urinalysis - C+S If Indicated (01/16/18 00:06) Admit Order (Ed Use Only) (01/16/18 01:53) Labs Laboratory Tests Test 01/16/18 00:05 White Blood Count 7.6 TH/MM3 Red Blood Count 3.99 MIL/MM3 Hemoglobin 12.2 GM/DL Hematocrit 35.8 % Mean Corpuscular Volume 89.7 FL Mean Corpuscular Hemoglobin 30.6 PG Mean Corpuscular Hemoglobin Concent 34.1 % Red Cell Distribution Width 13.4 % Platelet Count 169 TH/MM3 Mean Platelet Volume 7.8 FL Neutrophils (%) (Auto) 56.9 % Lymphocytes (%) (Auto) 30.4 % Monocytes (%) (Auto) 10.8 % Eosinophils (%) (Auto) 1.1 % Basophils (%) (Auto) 0.8 % Neutrophils # (Auto) 4.3 TH/MM3 Lymphocytes # (Auto) 2.3 TH/MM3 Monocytes # (Auto) 0.8 TH/MM3 Eosinophils # (Auto) 0.1 TH/MM3 Basophils # (Auto) 0.1 TH/MM3 CBC Comment DIFF FINAL Differential Comment Prothrombin Time 10.0 SEC Prothromb Time International Ratio 1.0 RATIO Activated Partial Thromboplast Time 24.7 SEC Blood Urea Nitrogen 12 MG/DL Creatinine 0.69 MG/DL Random Glucose 120 MG/DL Total Protein 7.9 GM/DL Albumin 3.4 GM/DL Calcium Level 8.8 MG/DL Magnesium Level 2.3 MG/DL Alkaline Phosphatase 104 U/L Aspartate Amino Transf (AST/SGOT) 40 U/L Alanine Aminotransferase (ALT/SGPT) 87 U/L Total Bilirubin 0.3 MG/DL Sodium Level 141 MEQ/L Potassium Level 3.8 MEQ/L Chloride Level 107 MEQ/L Carbon Dioxide Level 22.0 MEQ/L Anion Gap 12 MEQ/L Estimat Glomerular Filtration Rate 120 ML/MIN Total Creatine Kinase 84 U/L Troponin I LESS THAN 0.02 NG/ML B-Type Natriuretic Peptide 19 PG/ML Exceptions Acute Myocardial Infarction ASA Not Given on Arrival: Already taken by patient MDM Medical Decision Making Medical Screen Exam Complete: Yes Emergency Medical Condition: Yes Medical Record Reviewed: Yes Interpretation(s) EKG reveals normal sinus rhythm with a rate 86. Nonspecific T-wave changes. Last Impressions Chest X-Ray 01/16/18 0002 Signed Impressions: CONCLUSION: No acute intrathoracic disease. Stable examination. Laboratory Tests Test 01/16/18 00:05 White Blood Count 7.6 TH/MM3 Red Blood Count 3.99 MIL/MM3 Hemoglobin 12.2 GM/DL Hematocrit 35.8 % Mean Corpuscular Volume 89.7 FL Mean Corpuscular Hemoglobin 30.6 PG Mean Corpuscular Hemoglobin Concent 34.1 % Red Cell Distribution Width 13.4 % Platelet Count 169 TH/MM3 Mean Platelet Volume 7.8 FL Neutrophils (%) (Auto) 56.9 % Lymphocytes (%) (Auto) 30.4 % Monocytes (%) (Auto) 10.8 % Eosinophils (%) (Auto) 1.1 % Basophils (%) (Auto) 0.8 % Neutrophils # (Auto) 4.3 TH/MM3 Lymphocytes # (Auto) 2.3 TH/MM3 Monocytes # (Auto) 0.8 TH/MM3 Eosinophils # (Auto) 0.1 TH/MM3 Basophils # (Auto) 0.1 TH/MM3 CBC Comment DIFF FINAL Differential Comment Prothrombin Time 10.0 SEC Prothromb Time International Ratio 1.0 RATIO Activated Partial Thromboplast Time 24.7 SEC Blood Urea Nitrogen 12 MG/DL Creatinine 0.69 MG/DL Random Glucose 120 MG/DL Total Protein 7.9 GM/DL Albumin 3.4 GM/DL Calcium Level 8.8 MG/DL Magnesium Level 2.3 MG/DL Alkaline Phosphatase 104 U/L Aspartate Amino Transf (AST/SGOT) 40 U/L Alanine Aminotransferase (ALT/SGPT) 87 U/L Total Bilirubin 0.3 MG/DL Sodium Level 141 MEQ/L Potassium Level 3.8 MEQ/L Chloride Level 107 MEQ/L Carbon Dioxide Level 22.0 MEQ/L Anion Gap 12 MEQ/L Estimat Glomerular Filtration Rate 120 ML/MIN Total Creatine Kinase 84 U/L Troponin I LESS THAN 0.02 NG/ML B-Type Natriuretic Peptide 19 PG/ML Differential Diagnosis Differential diagnosis includes acute coronary syndrome, ischemic cardiomyopathy , dilated cardiomyopathy, deconditioning, sleep apnea, congestive heart failure , COPD exacerbation. Narrative Course IV was established, labs are drawn and sent, and the patient was placed on cardiac telemetry monitoring and continuous pulse oximetry monitoring. The patient took aspirin prior to arrival. He was administered Nitropaste to the chest wall. Chest x-ray was obtained. EKG was ordered and interpreted. The patient's chest x-ray reveals no acute intrathoracic disease, stable exam. The patient's initial troponin is negative. However, the patient does have concerning story with exertional dyspnea and intermittent chest pain, could be unstable angina versus deconditioning versus cardiomyopathy. Therefore, patient will be medical admission as he will need an echocardiogram and most likely a nuclear medicine myocardial perfusion scan. Therefore, the patient will be admitted to the on-call medical team. The patient is comfortable with this plan of care and disposition. Physician Communication Physician Communication I discussed the patient with Dr. Bennett who agrees with 23 hour observation. Admitting Information Admitting Physician Requests: Observation Condition: Stable Thanh Preciado MD Jan 16, 2018 00:06
[2018-01-16] MEDS ORDERED: NITROGLYCERIN 2% OINT 1 GM PACKET TOP ONE (00:15)
[2018-01-16] MEDS ORDERED: SODIUM CHLORIDE 0.9% FLUSH 10 ML FLUSH IVF PRN (00:15)
[2018-01-16 00:22] LABS: AUTOMATED NEUTROPHIL # 4.3 TH/MM3 (1.8-7.7); BASOPHIL # 0.1 TH/MM3 (0-0.2); BASOPHIL % 0.8 % (0.0-2.0); EOSINOPHIL # 0.1 TH/MM3 (0-0.4); EOSINOPHIL % 1.1 % (0.0-4.0); HEMATOCRIT 35.8 % (39.0-51.0); HEMOGLOBIN 12.2 GM/DL (13.0-17.0); LYMPH % 30.4 % (9.0-44.0); LYMPHOCYTE # 2.3 TH/MM3 (1.0-4.8); MEAN CELL VOLUME 89.7 FL (80.0-100.0); MEAN CORPUSCULAR HEMOGLOBIN 30.6 PG (27.0-34.0); MEAN CORPUSCULAR HGB CONC 34.1 % (32.0-36.0); MEAN PLATELET VOLUME 7.8 FL (7.0-11.0); MONO % 10.8 % (0.0-8.0); MONOCYTE # 0.8 TH/MM3 (0-0.9); NEUT % 56.9 % (16.0-70.0); PLATELET COUNT 169 TH/MM3 (150-450); RED BLOOD COUNT 3.99 MIL/MM3 (4.50-5.90); RED CELL DISTRIBUTION WIDTH 13.4 % (11.6-17.2); WHITE BLOOD COUNT 7.6 TH/MM3 (4.0-11.0)
[2018-01-16 00:46] LABS: ALBUMIN 3.4 GM/DL (3.4-5.0); AST (GOT) 40 U/L (15-37); BLOOD UREA NITROGEN 12 MG/DL (7-18); CALCIUM 8.8 MG/DL (8.5-10.1); CHLORIDE 107 MEQ/L (98-107); CREATININE 0.69 MG/DL (0.60-1.30); GLOMERULAR FILTRATION RATE 120 ML/MIN (>89); GLUCOSE,RANDOM 120 MG/DL (74-106); MAGNESIUM 2.3 MG/DL (1.5-2.5); SODIUM (NA) 141 MEQ/L (136-145)
[2018-01-16 00:47] LABS: ALT (GPT) 87 U/L (12-78)
[2018-01-16 00:51] LABS: ALKALINE PHOSPHATASE 104 U/L (45-117); TOTAL BILIRUBIN ADULT 0.3 MG/DL (0.2-1.0); TOTAL PROTEIN 7.9 GM/DL (6.4-8.2); TROPONIN I LESS THAN 0.02 NG/ML (0.02-0.05)
--- NOTE | 2018-01-16 00:55 | RADRPT ---
EXAM DATE: 01/16/2018 12:31 AM EDT AGE/SEX: 52 years / Male INDICATIONS: Short of breath, chest pain to anterior chest wall. CLINICAL DATA: This is the patient's initial encounter. Patient reports that signs and symptoms have been present for 1 day and indicates a pain score of 5/10. MEDICAL/SURGICAL HISTORY: None. None. COMPARISON: [facility], CHEST PA & LAT, 07/13/2016. . FINDINGS: PA and lateral views of the chest demonstrate the lungs to be aerated without evidence of mass, infil trate or effusion. There is evidence of previous surgery to the right lung. Persistent elevation of t he right hemidiaphragm. The cardiomediastinal contours are unremarkable and stable. Osseous structure s are intact and stable. CONCLUSION: No acute intrathoracic disease. Stable examination. Electronically signed by: Evan Carrizales MD 01/16/2018 12:53 AM EDT
[2018-01-16 02:12] LABS: BILIRUBIN, URINE NEG (NEG); BLOOD, URINE NEG (NEG); GLUCOSE,URINE NEG (NEG); KETONE, URINE NEG (NEG); NITRITE,URINE NEG (NEG); SQUAMOUS EPITHELIAL CELL URINE <1 /hpf (0-5); URINE COLOR LIGHT-YELLOW (YELLW/STRAW); URINE LEUKOCYTE ESTERASE NEG (NEG)
[2018-01-16] MEDS ORDERED: SODIUM CHLORIDE 0.9% FLUSH 10 ML FLUSH IV FLUSH PRN (03:30)
[2018-01-16] MEDS ORDERED: LORazepam 1 MG TAB PO PRN (03:30)
[2018-01-16] MEDS ORDERED: FLUMAZENIL 0.5 MG/5 ML VIAL IV PUSH PRN (03:30)
[2018-01-16] MEDS ORDERED: LORazepam 2 MG TAB PO PRN (03:30)
[2018-01-16] MEDS ORDERED: NALOXONE HCL 0.4 MG/ML AMP IV PUSH PRN (03:30)
[2018-01-16] MEDS ORDERED: ACETAMINOPHEN 325 MG TAB PO PRN (03:30)
[2018-01-16] MEDS ORDERED: LORazepam 2 MG/ML VIAL IV PUSH PRN ×4 (03:30)
[2018-01-16] MEDS ORDERED: MORPHINE SULFATE 4 MG/ML INJ IV PUSH PRN (04:00)
--- NOTE | 2018-01-16 04:14 | HHI.HP ---
[facility] Myron Epps Admission Diagnosis Chest pain with exertional dyspnea Diagnoses: Travel History International Travel<30 Days: No Contact w/Intl Traveler <30 Da: No Traveled to Known Affected Are: No History of Present Illness 52-year-old male with a past medical history significant for hypertension and anxiety (out of his medications for the past 6 months) presents to the emergency department for evaluation of increasing shortness of breath. The patient reports he has had shortness of breath for approximately 2 weeks. Today he noticed chest pain, back pain that radiated down his left arm. He reports his shortness of breath is worse with exertion. He has a myriad of other complaints including hematuria and a foul-smelling drainage from his right axilla. He denies any fever/chills. No abdominal pain. No nausea/bruit/ diarrhea. No lateralizing signs/symptoms. Review of Systems Except as stated in HPI: all other systems reviewed are Neg Past Family Social History Past Medical History Hypertension Anxiety Past Surgical History Lipoma on lung removed by Dr. Foster Reported Medications Reported Meds & Active Scripts Active Spiriva Handihaler (Tiotropium Inh) 18 Mcg Cap 18 Mcg INH DAILY 1 capsule = 18 mcg Calcium Oyster Shell (Oyster Shell) 500 Mg Tab 500 Mg PO Q12HR 30 Days Nebulizer 1 Mis Mis 1 Ea .ROUTE DIRECTED Duoneb (Ipratropium-Albuterol Neb) 0.5-2.5 Mg/3 Ml Neb 1 Ampule NEB Q6HR PRN 14 Days Vitamin D3 (Cholecalciferol) 5,000 Unit Cap 5,000 Units PO DAILY 30 Days Reported Clonazepam 1 Mg Tab 1 Mg PO DAILY Lisinopril-Hctz 20-12.5 Mg Tab 1 Tab PO DAILY Allergies: Coded Allergies: No Known Allergies (Unverified Adverse Reaction, Unknown, 01/15/18) Family History Mother with diabetes mellitus Social History Continues to smoke 2 packs per day. Drinks approximately 12 beers daily. Denies illicit drugs. Physical Exam Vital Signs Vital Signs Date Time Temp Pulse Resp B/P (MAP) Pulse Ox O2 Delivery O2 Flow Rate FiO2 6/5/18 03:34 72 20 130/72 (91) 96 Room Air 01/16/18 00:08 86 20 130/99 (109) 95 Room Air 136/90 (105) 01/16/18 00:06 20 01/16/18 00:06 Room Air 01/15/18 23:41 87 20 133/80 (97) 96 Room Air 01/15/18 23:22 98.6 95 22 178/101 (126) 96 Physical Exam GENERAL: Morbidly obese male lying in bed SKIN: No rashes, ecchymoses or lesions. Cool and dry. Mild erythema in the right axilla without drainage. HEAD: Atraumatic. Normocephalic. No temporal or scalp tenderness. EYES: Pupils equal round and reactive. Extraocular motions intact. No scleral icterus. No injection or drainage. ENT: Nose without bleeding, purulent drainage or septal hematoma. Throat without erythema, tonsillar hypertrophy or exudate. Uvula midline. Airway patent. NECK: Trachea midline. No JVD or lymphadenopathy. Supple, nontender, no meningeal signs. CARDIOVASCULAR: Regular rate and rhythm without murmurs, gallops, or rubs. RESPIRATORY: Poor air movement. GASTROINTESTINAL: Abdomen soft, non-tender, nondistended. No hepato-splenomegaly , or palpable masses. No guarding. MUSCULOSKELETAL: Extremities without clubbing, cyanosis, or edema. No joint tenderness, effusion, or edema noted. No calf tenderness. NEUROLOGICAL: Awake and alert. Cranial nerves II through XII intact. Motor and sensory grossly within normal limits. Normal speech. Laboratory Laboratory Tests Test 01/16/18 00:05 01/16/18 01:35 White Blood Count 7.6 Red Blood Count 3.99 Hemoglobin 12.2 Hematocrit 35.8 Mean Corpuscular Volume 89.7 Mean Corpuscular Hemoglobin 30.6 Mean Corpuscular Hemoglobin Concent 34.1 Red Cell Distribution Width 13.4 Platelet Count 169 Mean Platelet Volume 7.8 Neutrophils (%) (Auto) 56.9 Lymphocytes (%) (Auto) 30.4 Monocytes (%) (Auto) 10.8 Eosinophils (%) (Auto) 1.1 Basophils (%) (Auto) 0.8 Neutrophils # (Auto) 4.3 Lymphocytes # (Auto) 2.3 Monocytes # (Auto) 0.8 Eosinophils # (Auto) 0.1 Basophils # (Auto) 0.1 CBC Comment DIFF FINAL Differential Comment Prothrombin Time 10.0 Prothromb Time International Ratio 1.0 Activated Partial Thromboplast Time 24.7 Blood Urea Nitrogen 12 Creatinine 0.69 Random Glucose 120 Total Protein 7.9 Albumin 3.4 Calcium Level 8.8 Magnesium Level 2.3 Alkaline Phosphatase 104 Aspartate Amino Transf (AST/SGOT) 40 Alanine Aminotransferase (ALT/SGPT) 87 Total Bilirubin 0.3 Sodium Level 141 Potassium Level 3.8 Chloride Level 107 Carbon Dioxide Level 22.0 Anion Gap 12 Estimat Glomerular Filtration Rate 120 Total Creatine Kinase 84 Troponin I LESS THAN 0.02 B-Type Natriuretic Peptide 19 Urine Color LIGHT-YELLOW Urine Turbidity CLEAR Urine pH 5.0 Urine Specific [place] 1.005 Urine Protein NEG Urine Glucose (UA) NEG Urine Ketones NEG Urine Occult Blood NEG Urine Nitrite NEG Urine Bilirubin NEG Urine Urobilinogen LESS THAN 2.0 Urine Leukocyte Esterase NEG Urine WBC 1 Urine Squamous Epithelial Cells <1 Microscopic Urinalysis Comment CULT NOT INDICATED Result Diagram: 01/16/18 0005 01/16/18 0005 Caprini VTE Risk Assessment Caprini VTE Risk Assessment: No/Low Risk (score <= 1) Caprini Risk Assessment Model Point Value = 1 Point Value = 2 Point Value = 3 Point Value = 5 Age 41-60 Minor surgery BMI > 25 kg/m2 Swollen legs Varicose veins or History of unexplained or recurrent spontaneous Oral contraceptives or hormone replacement Sepsis (< 1 month) Serious lung disease, including pneumonia (< 1 month) Abnormal pulmonary function Acute myocardial infarction Congestive heart failure (< 1 month) History of inflammatory bowel disease Medical patient at bed rest Age 61-74 Arthroscopic surgery Major open surgery (> 45 min) Laparoscopic surgery (> 45 min) Malignancy Confined to bed (> 72 hours) Immobilizing plaster cast Central venous access Age >= 75 History of VTE Family history of VTE Factor V Leiden Prothrombin [id number] Lupus anticoagulant Anticardiolipin antibodies Elevated serum homocysteine Heparin-induced thrombocytopenia Other congenital or acquired thrombophilia Stroke (< 1 month) Elective arthroplasty Hip, pelvis, or leg fracture Acute spinal cord injury (< 1 month) Prophylaxis Regimen Total Risk Factor Score Risk Level Prophylaxis Regimen 0-1 Low Early ambulation 2 Moderate Order ONE of the following: *Sequential Compression Device (SCD) *Heparin 5000 units SQ BID 3-4 Higher Order ONE of the following medications: *Heparin 5000 units SQ TID *Enoxaparin/Lovenox 40 mg SQ daily (WT < 150 kg, CrCl > 30 mL/min) *Enoxaparin/Lovenox 30 mg SQ daily (WT < 150 kg, CrCl > 10-29 mL/min) *Enoxaparin/Lovenox 30 mg SQ BID (WT < 150 kg, CrCl > 30 mL/min) AND/OR *Sequential Compression Device (SCD) 5 or more Highest Order ONE of the following medications: *Heparin 5000 units SQ TID (Preferred with Epidurals) *Enoxaparin/Lovenox 40 mg SQ daily (WT < 150 kg, CrCl > 30 mL/min) *Enoxaparin/Lovenox 30 mg SQ daily (WT < 150 kg, CrCl > 10-29 mL/min) *Enoxaparin/Lovenox 30 mg SQ BID (WT < 150 kg, CrCl > 30 mL/min) AND *Sequential Compression Device (SCD) Assessment and Plan Assessment and Plan Assessment/plan: 1. Chest pain/shortness of breath Patient with 2 week history of shortness of breath and 1 day history of chest pain that radiates down the left arm Initial troponin negative EKG without ST segment elevations or depressions, personally reviewed ACS rule out pending; serial troponins/EKGs Aspirin/Nitropaste/morphine Chest x-ray significant for mild to moderate cardiomegaly, personally reviewed Echo pending 2. Hypertension Continue home medications 3. COPD Duo nebs Continue home Spiriva 4. Hematuria Patient complains of bloody urine UA negative for RBCs 5. Drainage from axilla None noted Follow-up as an outpatient 6. Alcohol abuse Patient reports drinking 12 beers daily [facility] protocol Thiamine/folate/multivitamin Monitor for signs of withdrawal FEN Heart healthy diet Electrolytes: Monitor and replete as needed Susy Bennett MD Jan 16, 2018 04:14
[2018-01-16] MEDS ORDERED: ASPIRIN 81 MG CHEW TAB CHEW ONE (04:15)
[2018-01-16] MEDS ORDERED: RESP: ALBUTEROL 2.5 MG/IPRATROPIUM 0.5 MG NEB (PRN) NEB (04:45)
[2018-01-16 07:46] LABS: TROPONIN I LESS THAN 0.02 NG/ML (0.02-0.05)
[2018-01-16] MEDS ORDERED: NON-FORMULARY DRUG (Lisinopril-Hctz 1 TAB) PO SCH (09:00)
[2018-01-16] MEDS: TIOTROPIUM BROMIDE 18 MCG INH INH SCH (09:28)
[2018-01-16] MEDS: FOLIC ACID 1 MG TAB PO SCH (09:29)
[2018-01-16] MEDS: SODIUM CHLORIDE 0.9% FLUSH 10 ML FLUSH IV FLUSH SCH ×2 (09:29→21:00)
[2018-01-16] MEDS: LISINOPRIL 20 MG TAB PO SCH (09:29)
[2018-01-16] MEDS: THIAMINE HCL 100 MG TAB PO SCH (09:29)
[2018-01-16] MEDS: HYDROCHLOROTHIAZIDE 25 MG TAB PO SCH (09:29)
[2018-01-16] MEDS: MULTIVITAMINS/MINERALS THERAPEUTIC TAB PO SCH (09:29)
[2018-01-16 12:13] LABS: TROPONIN I LESS THAN 0.02 NG/ML (0.02-0.05)
--- NOTE | 2018-01-16 12:15 | HHI.PR ---
Subjective Remarks Follow up on patient with shortness of breath and chest pain. Patient seen and examined. Patient reports progressive shortness of breath for the past 2 weeks. He denies any increased cough or sputum production. He denies any fever or chills. He reports sudden onset of dizziness and diaphoresis with associated nausea yesterday followed by sharp "ice pick" like chest pain that radiated from his back thru to the left side of his chest and down the left arm to the elbow. His symptoms resolved after he took several aspirin and lied down. He got up later and began to play with his dog when he developed the chest pain again and took another aspirin which helped to alleviate the pain. He denies any palpitations. He denies any abdominal pain. He reports chronic bilateral lower extremity swelling that is unchanged. He is scheduled to have a sleep study with Dr. Nuñez later this week. He smokes one pack of cigarettes daily. He reports both his mother and grandmother had heart problems. He states he got short of breath today walking to the bathroom in CDU. Objective Vitals Vital Signs Date Time Temp Pulse Resp B/P (MAP) Pulse Ox O2 Delivery O2 Flow Rate FiO2 01/16/18 08:38 96.1 71 20 134/83 (100) 95 01/16/18 08:11 80 01/16/18 04:14 97.6 83 16 143/73 (96) 93 01/16/18 03:34 72 20 130/72 (91) 96 Room Air 01/16/18 00:08 86 20 130/99 (109) 95 Room Air 136/90 (105) 01/16/18 00:06 20 01/16/18 00:06 Room Air 01/15/18 23:41 87 20 133/80 (97) 96 Room Air 01/15/18 23:22 98.6 95 22 178/101 (126) 96 Result Diagram: 01/16/18 0005 01/16/18 0005 Imaging Last Impressions Chest X-Ray 01/16/18 0002 Signed Impressions: CONCLUSION: No acute intrathoracic disease. Stable examination. Objective Remarks GENERAL: WDWN morbidly obese male lying in bed, INAD. Awake and alert. Family is at the bedside. SKIN: No rashes, ecchymoses or lesions. Cool and dry. Mild erythema in the right axilla without drainage. HEAD: Atraumatic. Normocephalic. No temporal or scalp tenderness. EYES: Pupils equal round and reactive. Extraocular motions intact. No scleral icterus. No injection or drainage. ENT: Nose without bleeding or purulent drainage. Throat without erythema, tonsillar hypertrophy or exudate. Uvula midline. Airway patent. MMM. NECK: Trachea midline. CARDIOVASCULAR: Regular rate and rhythm without murmurs, gallops, or rubs. RESPIRATORY: Diminished air entry. No wheezing or rhonchi appreciated. GASTROINTESTINAL: Abdomen soft, non-tender, nondistended. No hepato-splenomegaly , or palpable masses. No guarding. MUSCULOSKELETAL: Extremities without clubbing or cyanosis. Trace to 1+ BLE edema. No joint tenderness, effusion, or edema noted. No calf tenderness. NEUROLOGICAL: Awake and alert. Cranial nerves II through XII grossly intact. Motor and sensory grossly within normal limits. Normal speech. PSYCHIATRIC: Appropriate mood and affect. Normal judgement and insight. Procedures None A/P Assessment and Plan 52yo male with HTN and anxiety who has been out of his medications for the past 6 months admitted with progressive dyspnea x 2 weeks and chest pain x 1 day. Chest pain/shortness of breath Patient with 2 week history of shortness of breath and 1 day history of chest pain that radiates down the left arm Chest x-ray significant for mild to moderate cardiomegaly BNP 19 Troponins neg x [address] segment elevations or depressions -continue to monitor on telemetry -continue Aspirin daily -Nitropaste/morphine prn chest pain -Echo pending - follow up on results -check lipid profile, TSH and HgbA1c -Lexiscan ordered Hypertension, uncontrolled at ED presentation 178/101 BP much improved -Continue home medications Lisinopril 20mg daily and HCTZ 12.5mg daily -continue to monitor BP and adjust treatment accordingly COPD, not in acute exacerbation Ongoing tobaccoism -discussed smoking cessation -continue Duo nebs -continue home Spiriva -monitor respiratory status Hematuria Patient complains of bloody urine -UA negative for RBCs -recommend patient f/u with PCP and/or urology as outpatient for further workup. Drainage from axilla None noted on exam -Follow-up as an outpatient Alcohol abuse Patient reports drinking 12 beers daily -CIWA protocol -continue on Thiamine/folate/multivitamin -Monitor for signs of withdrawal Transaminitis, suspect secondary to alcohol abuse -avoid hepatotoxic agents -trend LFTs Suspected BEENA -patient to keep his sleep study appt scheduled for later this week with Dr. Nuñez FEN Heart healthy diet Electrolytes: Monitor and replete as needed Discharge Planning Not ready for discharge. Discharge pending echocardiogram and Lexiscan results. Lourdes Sol Jan 16, 2018 12:15
[2018-01-16 13:40] LABS: CHOLESTEROL 207 MG/DL (120-200)
[2018-01-16 13:49] LABS: CHOLESTEROL/ HDL RATIO 5.25 RATIO; HDL CHOLESTEROL 39.4 MG/DL (40.0-60.0); LDL CHOLESTEROL 134 MG/DL (0-99); TRIGLYCERIDES 167 MG/DL (42-150)
--- NOTE | 2018-01-16 16:10 | EKG ---
Date Performed: 01/15/2018 Time Performed: 22:34:15 PTAGE: 52 years EKG: Sinus rhythm NONSPECIFIC T-WAVE ABNORMALITY BORDERLINE ECG Since the previous tracing, no significant change note d NO PREVIOUS TRACING DOCTOR: Laurita Harris Interpretating Date/Time 01/16/2018 16:09:33
--- NOTE | 2018-01-16 16:11 | EKG ---
Date Performed: 01/16/2018 Time Performed: 05:39:30 PTAGE: 52 years EKG: Sinus rhythm NORMAL ECG Since the PREVIOUS TRACING , no significant change noted PREVIOUS TRACIN01/15/2018 @10.34 DOCTOR: Laurita Harris Interpretating Date/Time 01/16/2018 16:10:07
[2018-01-16 16:44] LABS: HEMOGLOBIN A1C 6.3 % (4.3-6.0)
[2018-01-17] VITALS: BP 138/66; PULSE 81; RESP 20; TEMP 97.6; O2SAT 95
[2018-01-17 04:00] VITALS: BP 144/68; PULSE 75; RESP 20; TEMP 98; O2SAT 95
[2018-01-17 07:18] LABS: AUTOMATED NEUTROPHIL # 4.3 TH/MM3 (1.8-7.7); BASOPHIL % 0.4 % (0.0-2.0); EOSINOPHIL # 0.2 TH/MM3 (0-0.4); EOSINOPHIL % 2.2 % (0.0-4.0); HEMATOCRIT 44.6 % (39.0-51.0); HEMOGLOBIN 14.9 GM/DL (13.0-17.0); LYMPH % 29.5 % (9.0-44.0); LYMPHOCYTE # 2.2 TH/MM3 (1.0-4.8); MEAN CELL VOLUME 91.1 FL (80.0-100.0); MEAN CORPUSCULAR HEMOGLOBIN 30.5 PG (27.0-34.0); MEAN CORPUSCULAR HGB CONC 33.5 % (32.0-36.0); MEAN PLATELET VOLUME 7.8 FL (7.0-11.0); MONOCYTE # 0.7 TH/MM3 (0-0.9); NEUT % 58.9 % (16.0-70.0); PLATELET COUNT 184 TH/MM3 (150-450); RED BLOOD COUNT 4.89 MIL/MM3 (4.50-5.90); RED CELL DISTRIBUTION WIDTH 13.7 % (11.6-17.2); WHITE BLOOD COUNT 7.3 TH/MM3 (4.0-11.0)
[2018-01-17 07:41] LABS: ALBUMIN 3.4 GM/DL (3.4-5.0); CALCIUM 9.5 MG/DL (8.5-10.1); CREATININE 0.8 MG/DL (0.60-1.30)
[2018-01-17 07:46] LABS: DIRECT BILIRUBIN ADULT 0.1 MG/DL (0.0-0.2); INDIRECT BILIRUBIN 0.3 MG/DL (0.0-0.8); TOTAL BILIRUBIN ADULT 0.4 MG/DL (0.2-1.0); TOTAL PROTEIN 7.8 GM/DL (6.4-8.2)
[2018-01-17 07:51] VITALS: BP 163/77; PULSE 69; RESP 18; TEMP 98; O2SAT 94
[2018-01-17] MEDS ORDERED: ASPIRIN EC 81 MG TABEC PO SCH (09:00)
[2018-01-17] MEDS: THIAMINE HCL 100 MG TAB PO SCH (09:16)
[2018-01-17] MEDS: MULTIVITAMINS/MINERALS THERAPEUTIC TAB PO SCH (09:16)
[2018-01-17] MEDS: TIOTROPIUM BROMIDE 18 MCG INH INH SCH (09:16)
[2018-01-17] MEDS: LISINOPRIL 20 MG TAB PO SCH (09:16)
[2018-01-17] MEDS: HYDROCHLOROTHIAZIDE 25 MG TAB PO SCH (09:17)
[2018-01-17] MEDS: FOLIC ACID 1 MG TAB PO SCH (09:17)
[2018-01-17] MEDS: SODIUM CHLORIDE 0.9% FLUSH 10 ML FLUSH IV FLUSH SCH (09:26)
--- NOTE | 2018-01-17 10:20 | PD.AMA ---
Against Medical Advice Note Diagnosis: (1) Chest pain (2) Dyspnea (3) Transaminitis Discharge Disposition: Against Medical Advice AMA Statement Patient Robert Ross has decided to leave the hospital against medical advice. This patient has the capacity to refuse care and understands the risks of leaving, including permanent disability and/or , and has had an opportunity to ask questions about his condition. The patient has been informed that he may return for care at any time, and follow up has been arranged/ advised. Lourdes Sol Jan 17, 2018 10:20
--- NOTE | 2018-01-17 19:31 | EKG ---
Date Performed: 01/16/2018 Time Performed: 12:08:42 PTAGE: 52 years EKG: Sinus rhythm WITH SINUS ARRHYTHMIA INFERIOR Q WAVES ABNORMAL ECG Since the PREVIOUS TRACING , no significant change noted DOCTOR: Celestino Fagan Interpretating Date/Time 01/17/2018 19:30:39
== END 2018-01-17 10:14 | disposition left against medical advice (07) ==
LOC: NEPE 23:20 → NEDA 01-16 01:54 → NEPGCP 01-16 04:11
PROVIDERS: ADMIT Family Medicine; ATTEND Family Medicine
DX: R07.9 Chest pain, unspecified (principal); R31.9 Hematuria, unspecified; I11.9 Hypertensive heart disease without heart failure; J44.9 Chronic obstructive pulmonary disease, unspecified; F17.210 Nicotine dependence, cigarettes, uncomplicated; F10.10 Alcohol abuse, uncomplicated; R74.0 Nonspecific elevation of levels of transaminase and lactic acid dehydrogenase [LDH]; Z79.82 Long term (current) use of aspirin; Z79.899 Other long term (current) drug therapy; Z83.3 Family history of diabetes mellitus
CPT/HCPCS: 71046; 80048; 80053; 80061; 80076; 80307; 81001; 82550; 83036; 83735; 83880; 84443; 84484; 85025; 85610; 85730; 93005; 99285; G0378

== ENCOUNTER 2018-07-19 17:27 | Inpatient (IN) ==
[2018-07-19] MEDS ORDERED: Morphine Inj 4 MG/ML Vial IV.PUSH ONE (18:51)
--- NOTE | 2018-07-19 18:55 | ED ---
HPI General Chief Complaint: Chest Pain Stated Complaint: chest pain/evac Time Seen by Provider: 07/19/18 18:51 Source: patient Mode of arrival: EMS Limitations: no limitations History of Present Illness HPI narrative: Patient states that approximately at 4:30 PM he started to experience a sharp pain to his back radiating towards the front of his chest. He described the pain as a being drilled into his chest and back. The patient has past medical history of every day cigarette smoker, history of hypertension for which she was placed on medication, however he does not take him because after he was on that medication for a few days he started to get better, and so he discontinued taking his medications. EMS upon arrival found him to be hypertensive with a systolic in the 200s, presently the patient received 3 doses of nitro without any relief. The patient did state that he started to have radiation to his left upper extremity. The patient also as a separate complaint is complaining of right lower extremity calf pain that has been ongoing for the past month or so. Patient is afraid that he may have a blood clot.... I asked patient if he had ever had a CT chest or abdomen or anything to evaluate if he has any, aortic dissection or aneurysm, the patient denied it. Also the patient has not had any cardiac catheterization stress test or evaluation by [facility] admin. MD complaint: Reports chest pain STEMI Alert: No Onset (ago): hour(s) (2) Duration: intermittent Onset: during rest Pain location: Reports substernal Severity: moderate Severity scale (1-10): 6 Quality: Reports heaviness and sharp Pain radiation: Reports LUE Relieving factors: nothing and nitroglycerin (Did not get any relief despite 3 nitro sublingual) Exacerbating factors: nothing Associated symptoms: Reports nausea Treatments prior to arrival chest pain: Reports aspirin, nitroglycerin and oxygen Related Data Home Medications Medication Instructions Recorded Confirmed No Known Home Medications 07/19/18 07/19/18 Allergies Allergy/AdvReac Type Severity Reaction Status Date / Time No Known Allergies AdvReac Unknown Uncoded 01/15/18 23:32 Review of Systems ROS: all other systems reviewed are negative [facility] Medical History Medical History Chest pain (Acute) Hypertension (Acute) Social History Social History Substance History: No History of Abuse Second Hand Smoke Exposure: Yes Smoking Status: Current every day smoker Tobacco Type: Cigarettes How Often Do You Have a Drink Containing Alcohol: 2 to 3 times a week Recent Travel in [facility] within the Last 8 Weeks: No Recent Out of Country Travel within the Last 8 Weeks: No Immunization History Tetanus Immunization: >5 Years Exam Narrative Exam Narrative: GENERAL: Obese male in no apparent distress. SKIN: Warm and dry. HEAD: Atraumatic. Normocephalic. EYES: Pupils equal and round. No scleral icterus. No injection or drainage. ENT: No nasal bleeding or discharge. Mucous membranes pink and moist. NECK: Trachea midline. No JVD. CARDIOVASCULAR: Regular rate and rhythm. no rubs or gallops RESPIRATORY: No accessory muscle use. Clear to auscultation. Breath sounds equal bilaterally. GASTROINTESTINAL: Abdomen soft, non-tender, nondistended. No rebound or guarding... Rectal exam with RN at bedside assisting, Hemoccult negative MUSCULOSKELETAL: Extremities without clubbing, cyanosis, or edema. No obvious deformities. NEUROLOGICAL: Awake and alert. No obvious cranial nerve deficits. Motor grossly within normal limits. Five out of 5 muscle strength in the arms and legs. Normal speech. PSYCHIATRIC: Appropriate mood and affect; insight and judgment normal. Course Initial Documented Vital Signs Temperature 98.1 F 07/19/18 18:46 Pulse Rate 83 07/19/18 18:46 Respiratory Rate 20 07/19/18 18:46 Blood Pressure 189/103 H 07/19/18 18:46 Pulse Oximetry 92 L 07/19/18 18:46 Last Documented Vital Signs Temperature 98.4 F 07/21/18 03:58 Pulse Rate 67 07/21/18 05:42 Respiratory Rate 18 07/21/18 03:58 Blood Pressure 129/84 07/21/18 03:58 Pulse Oximetry 94 L 07/21/18 03:58 Critical Care Time Critical Care Time: Yes Total Critical Care Time: 30 Attestation: Aggregate critical care time was 30 minutes. Time to perform other separately billable procedures was not included in the critical care time. My time did not include minutes spent treating any other patients simultaneously or on activities that did not directly contribute to the patient's treatment. The services I provided to this patient were to treat and/or prevent clinically significant deterioration I provided critical care services requiring my management, as noted below: Chart data review, documentation time, medication orders and management, vital sign assessments/reviewing monitor data, ordering and reviewing lab tests, ordering and interpreting/reviewing x-rays and diagnostic studies, care of the patient and discussion of the patient with the admitting physicians. Medical Decision Making MDM Narrative Medical decision making narrative: Ultrasound read by radiologist as negative for lower extremity DVT CBC shows no evidence of any leukocytosis anemia or abnormal platelet count., No left shift Regulation profile within normal limits Electrolytes are within normal limits. Normal kidney functions Slightly elevated AST of 49 ALT of 81 essentially the same as back in January 2018 with a normal alk phos and bilirubin. Patient's troponin elevated at 0.13 Normal beta natruretic peptide CT thoracic and abdominal and pelvic aorta read by radiologist as no thoracic or abdominal aortic aneurysm or dissection. Mild scarring in the lungs and mild air trapping. Discussed at length with Dr. Johnson who did not recommend any heparin at this moment due to his elevated blood pressures.... Agrees with aspirin nitro morphine and metoprolol given and agrees with medicine admit. Medical Screen Exam Complete: Yes Emergency Medical Condition: Yes Lab Data Result diagrams: 07/21/18 05:23 07/21/18 05:23 Lab Results 07/19/18 07/19/18 07/19/18 Range/Units 19:06 19:06 19:06 WBC 8.3 (4.0-11.0) th/mm3 RBC 4.82 (4.50-5.90) mil/mm3 Hgb 14.7 (13.0-17.0) gm/dL Hct 42.6 (39.0-51.0) % MCV 88.5 (80.0-100.0) fL MCH 30.4 (27.0-34.0) pg MCHC 34.4 (32.0-36.0) % RDW 13.4 (11.6-17.2) % Plt Count 162 (150-450) th/mm3 MPV 7.9 (7.0-11.0) fL Neut % (Auto) 66.9 (16.0-70.0) % Lymph % (Auto) 21.7 (9.0-44.0) % [place] % (Auto) 9.1 H (0.0-8.0) % Eos % (Auto) 1.7 (0.0-4.0) % Baso % (Auto) 0.6 (0.0-2.0) % Neut # (Auto) 5.5 (1.8-7.7) th/mm3 Lymph # (Auto) 1.8 (1.0-4.8) th/mm3 [place] # (Auto) 0.8 (0.0-0.9) th/mm3 Eos # (Auto) 0.1 (0.0-0.4) th/mm3 Baso # (Auto) 0.0 (0.0-0.2) th/mm3 WBC Differential . Differential Comment Auto diff final PT 10.3 (9.8-11.6) sec INR 1.0 Ratio APTT 25.9 (23.4-31.7) sec Sodium 137 (136-145) meq/L Potassium 3.6 (3.5-5.1) meq/L Chloride 101 (98-107) meq/L Carbon Dioxide 27.1 (21.0-32.0) meq/L Anion Gap 9 (5-15) meq/L BUN 13 (7-18) mg/dL Creatinine 0.70 (0.60-1.30) mg/dL Estimated GFR Greater than 89 (>89) mL/min Random Glucose 125 H (74-106) mg/dL Uric Acid (2.6-7.2) mg/dl Calcium 8.8 (8.5-10.1) mg/dL Total Bilirubin 0.5 (0.2-1.0) mg/dL AST 49 H (15-37) U/L ALT 81 H (12-78) U/L Alkaline Phosphatase 99 (45-117) U/L Total Creatine Kinase 63 (39-308) U/L Troponin I 0.13 H (0.02-0.05) ng/mL B-Natriuretic Peptide (0-100) pg/mL Total Protein 7.6 (6.4-8.2) g/dL Albumin 3.4 (3.4-5.0) g/dL Triglycerides (42-150) mg/dL Cholesterol (120-200) mg/dL LDL Cholesterol, Calc (0-99) mg/dL HDL Cholesterol (40.0-60.0) mg/dL Cholesterol/HDL Ratio Ratio Urine Color (Yellw/Straw) Urine Clarity (Clear) Urine pH (5.0-8.5) Ur Specific [place] (1.002-1.035) Urine Protein (Neg-Trace) mg/dL Urine Glucose (UA) (Negative) mg/dL Urine Ketones (Negative) mg/dL Urine Occult Blood (Negative) Urine Nitrate (Negative) Urine Bilirubin (Negative) Urine Urobilinogen (Less than 2) mg/dL Ur Leukocyte Esterase (Negative) Urine RBC (0-3) /hpf Urine WBC (0-5) /hpf Ur Squamous Epith Cells (0-5) /hpf Hyaline Casts (0-3) /lpf Urine Mucus (Occasional) /lpf Micro UA Comment Ur Microscopic Review Urine Culture Comments Urine Opiates Screen (Neg) Ur Barbiturates Screen (Neg) Ur Amphetamines Screen (Neg) U Benzodiazepines Scrn (Neg) Urine Cocaine Screen (Neg) U Cannabinoids Screen (Neg) 07/19/18 07/19/18 07/19/18 Range/Units 19:06 23:06 23:06 WBC (4.0-11.0) th/mm3 RBC (4.50-5.90) mil/mm3 Hgb (13.0-17.0) gm/dL Hct (39.0-51.0) % MCV (80.0-100.0) fL MCH (27.0-34.0) pg MCHC (32.0-36.0) % RDW (11.6-17.2) % Plt Count (150-450) th/mm3 MPV (7.0-11.0) fL Neut % (Auto) (16.0-70.0) % Lymph % (Auto) (9.0-44.0) % [place] % (Auto) (0.0-8.0) % Eos % (Auto) (0.0-4.0) % Baso % (Auto) (0.0-2.0) % Neut # (Auto) (1.8-7.7) th/mm3 Lymph # (Auto) (1.0-4.8) th/mm3 [place] # (Auto) (0.0-0.9) th/mm3 Eos # (Auto) (0.0-0.4) th/mm3 Baso # (Auto) (0.0-0.2) th/mm3 WBC Differential Differential Comment PT (9.8-11.6) sec INR Ratio APTT (23.4-31.7) sec Sodium (136-145) meq/L Potassium (3.5-5.1) meq/L Chloride (98-107) meq/L Carbon Dioxide (21.0-32.0) meq/L Anion Gap (5-15) meq/L BUN (7-18) mg/dL Creatinine (0.60-1.30) mg/dL Estimated GFR (>89) mL/min Random Glucose (74-106) mg/dL Uric Acid (2.6-7.2) mg/dl Calcium (8.5-10.1) mg/dL Total Bilirubin (0.2-1.0) mg/dL AST (15-37) U/L ALT (12-78) U/L Alkaline Phosphatase (45-117) U/L Total Creatine Kinase (39-308) U/L Troponin I (0.02-0.05) ng/mL B-Natriuretic Peptide 27 (0-100) pg/mL Total Protein (6.4-8.2) g/dL Albumin (3.4-5.0) g/dL Triglycerides (42-150) mg/dL Cholesterol (120-200) mg/dL LDL Cholesterol, Calc (0-99) mg/dL HDL Cholesterol (40.0-60.0) mg/dL Cholesterol/HDL Ratio Ratio Urine Color Susi (Yellw/Straw) Urine Clarity Clear (Clear) Urine pH 5.0 (5.0-8.5) Ur Specific [place] 1.032 (1.002-1.035) Urine Protein 30 H (Neg-Trace) mg/dL Urine Glucose (UA) Negative (Negative) mg/dL Urine Ketones Trace H (Negative) mg/dL Urine Occult Blood Negative (Negative) Urine Nitrate Negative (Negative) Urine Bilirubin Negative (Negative) Urine Urobilinogen Less than 2 (Less than 2) mg/dL Ur Leukocyte Esterase Negative (Negative) Urine RBC Less than 1 (0-3) /hpf Urine WBC 1 (0-5) /hpf Ur Squamous Epith Cells <1 (0-5) /hpf Hyaline Casts 1 (0-3) /lpf Urine Mucus Few H (Occasional) /lpf Micro UA Comment Culture not ind Ur Microscopic Review Not Reportable Urine Culture Comments Culture not ind Urine Opiates Screen Neg (Neg) Ur Barbiturates Screen Neg (Neg) Ur Amphetamines Screen Neg (Neg) U Benzodiazepines Scrn Neg (Neg) Urine Cocaine Screen Neg (Neg) U Cannabinoids Screen Neg (Neg) 07/20/18 07/20/18 07/20/18 Range/Units 01:23 01:23 07:11 WBC 8.8 (4.0-11.0) th/mm3 RBC 4.65 (4.50-5.90) mil/mm3 Hgb 14.2 (13.0-17.0) gm/dL Hct 41.8 (39.0-51.0) % MCV 89.8 (80.0-100.0) fL MCH 30.5 (27.0-34.0) pg MCHC 34.0 (32.0-36.0) % RDW 13.3 (11.6-17.2) % Plt Count 169 (150-450) th/mm3 MPV 8.0 (7.0-11.0) fL Neut % (Auto) 65.0 (16.0-70.0) % Lymph % (Auto) 24.0 (9.0-44.0) % [place] % (Auto) 7.9 (0.0-8.0) % Eos % (Auto) 2.6 (0.0-4.0) % Baso % (Auto) 0.5 (0.0-2.0) % Neut # (Auto) 5.8 (1.8-7.7) th/mm3 Lymph # (Auto) 2.1 (1.0-4.8) th/mm3 [place] # (Auto) 0.7 (0.0-0.9) th/mm3 Eos # (Auto) 0.2 (0.0-0.4) th/mm3 Baso # (Auto) 0.0 (0.0-0.2) th/mm3 WBC Differential . Differential Comment Auto diff final PT (9.8-11.6) sec INR Ratio APTT (23.4-31.7) sec Sodium 139 (136-145) meq/L Potassium 3.5 (3.5-5.1) meq/L Chloride 102 (98-107) meq/L Carbon Dioxide 29.4 (21.0-32.0) meq/L Anion Gap 8 (5-15) meq/L BUN 14 (7-18) mg/dL Creatinine 0.77 (0.60-1.30) mg/dL Estimated GFR Greater than 89 (>89) mL/min Random Glucose 132 H (74-106) mg/dL Uric Acid (2.6-7.2) mg/dl Calcium 8.1 L (8.5-10.1) mg/dL Total Bilirubin 0.4 (0.2-1.0) mg/dL AST 54 H (15-37) U/L ALT 80 H (12-78) U/L Alkaline Phosphatase 96 (45-117) U/L Total Creatine Kinase (39-308) U/L Troponin I 0.50 H 0.79 H* (0.02-0.05) ng/mL B-Natriuretic Peptide (0-100) pg/mL Total Protein 7.5 (6.4-8.2) g/dL Albumin 3.2 L (3.4-5.0) g/dL Triglycerides 274 H (42-150) mg/dL Cholesterol 218 H (120-200) mg/dL LDL Cholesterol, Calc 128 H (0-99) mg/dL HDL Cholesterol 35.4 L (40.0-60.0) mg/dL Cholesterol/HDL Ratio 6.15 Ratio Urine Color (Yellw/Straw) Urine Clarity (Clear) Urine pH (5.0-8.5) Ur Specific [place] (1.002-1.035) Urine Protein (Neg-Trace) mg/dL Urine Glucose (UA) (Negative) mg/dL Urine Ketones (Negative) mg/dL Urine Occult Blood (Negative) Urine Nitrate (Negative) Urine Bilirubin (Negative) Urine Urobilinogen (Less than 2) mg/dL Ur Leukocyte Esterase (Negative) Urine RBC (0-3) /hpf Urine WBC (0-5) /hpf Ur Squamous Epith Cells (0-5) /hpf Hyaline Casts (0-3) /lpf Urine Mucus (Occasional) /lpf Micro UA Comment Ur Microscopic Review Urine Culture Comments Urine Opiates Screen (Neg) Ur Barbiturates Screen (Neg) Ur Amphetamines Screen (Neg) U Benzodiazepines Scrn (Neg) Urine Cocaine Screen (Neg) U Cannabinoids Screen (Neg) 07/20/18 07/21/18 07/21/18 Range/Units 07:11 05:23 05:23 WBC 6.5 (4.0-11.0) th/mm3 RBC 4.70 (4.50-5.90) mil/mm3 Hgb 14.6 (13.0-17.0) gm/dL Hct 42.1 (39.0-51.0) % MCV 89.5 (80.0-100.0) fL MCH 31.0 (27.0-34.0) pg MCHC 34.6 (32.0-36.0) % RDW 13.6 (11.6-17.2) % Plt Count 157 (150-450) th/mm3 MPV 8.1 (7.0-11.0) fL Neut % (Auto) 59.6 (16.0-70.0) % Lymph % (Auto) 27.8 (9.0-44.0) % [place] % (Auto) 9.1 H (0.0-8.0) % Eos % (Auto) 3.0 (0.0-4.0) % Baso % (Auto) 0.5 (0.0-2.0) % Neut # (Auto) 3.9 (1.8-7.7) th/mm3 Lymph # (Auto) 1.8 (1.0-4.8) th/mm3 [place] # (Auto) 0.6 (0.0-0.9) th/mm3 Eos # (Auto) 0.2 (0.0-0.4) th/mm3 Baso # (Auto) 0.0 (0.0-0.2) th/mm3 WBC Differential . Differential Comment Auto diff final PT (9.8-11.6) sec INR Ratio APTT (23.4-31.7) sec Sodium 139 (136-145) meq/L Potassium 3.7 (3.5-5.1) meq/L Chloride 102 (98-107) meq/L Carbon Dioxide 31.6 (21.0-32.0) meq/L Anion Gap 5 (5-15) meq/L BUN 16 (7-18) mg/dL Creatinine 0.70 (0.60-1.30) mg/dL Estimated GFR Greater than 89 (>89) mL/min Random Glucose 105 (74-106) mg/dL Uric Acid 6.9 (2.6-7.2) mg/dl Calcium 8.1 L (8.5-10.1) mg/dL Total Bilirubin 0.6 (0.2-1.0) mg/dL AST 71 H (15-37) U/L ALT 105 H (12-78) U/L Alkaline Phosphatase 86 (45-117) U/L Total Creatine Kinase (39-308) U/L Troponin I 0.23 H (0.02-0.05) ng/mL B-Natriuretic Peptide (0-100) pg/mL Total Protein 7.6 (6.4-8.2) g/dL Albumin 3.1 L (3.4-5.0) g/dL Triglycerides (42-150) mg/dL Cholesterol (120-200) mg/dL LDL Cholesterol, Calc (0-99) mg/dL HDL Cholesterol (40.0-60.0) mg/dL Cholesterol/HDL Ratio Ratio Urine Color (Yellw/Straw) Urine Clarity (Clear) Urine pH (5.0-8.5) Ur Specific [place] (1.002-1.035) Urine Protein (Neg-Trace) mg/dL Urine Glucose (UA) (Negative) mg/dL Urine Ketones (Negative) mg/dL Urine Occult Blood (Negative) Urine Nitrate (Negative) Urine Bilirubin (Negative) Urine Urobilinogen (Less than 2) mg/dL Ur Leukocyte Esterase (Negative) Urine RBC (0-3) /hpf Urine WBC (0-5) /hpf Ur Squamous Epith Cells (0-5) /hpf Hyaline Casts (0-3) /lpf Urine Mucus (Occasional) /lpf Micro UA Comment Ur Microscopic Review Urine Culture Comments Urine Opiates Screen (Neg) Ur Barbiturates Screen (Neg) Ur Amphetamines Screen (Neg) U Benzodiazepines Scrn (Neg) Urine Cocaine Screen (Neg) U Cannabinoids Screen (Neg) Imaging Data Radiologist's impression: Thoracic Aorta CT 07/19/18 18:51 1. CONCLUSION: No thoracic or abdominal aortic aneurysm or dissection. Mild scarring in the lungs and mild air trapping. Venous Doppler Study 07/19/18 18:57 CONCLUSION: 1. The study is negative for lower extremity deep venous thrombosis. ECG Data EKG Prior to Arrival: No Attestation: I personally reviewed and interpreted this ECG as follows: Prior ECG tracings: not available for review Interpretation: Normal sinus rhythm, 80 bpm, normal intervals, no evidence of any acute ST elevation MO pattern. Discharge Plan Discharge Disposition Patient Disposition: ED Admit(ED Internal Use Only) Discharge Condition Condition: Stable Discharge Order Discharge Orders: ED Use Only Admit Order (Routine); Ordered 07/19/18 Ordered By: Obi Underwood Discharge Details Diagnosis: Hypertensive urgency, Non-ST elevated myocardial infarction (non-STEMI) Physicians Team ED Provider: Obi Underwood Primary Care Provider: Juma Epps Attending Provider: Sal Mckeon Other Providers: Francisco Johnson Status ED Status: Left Department Discharge Information Discharge Date/Time: 07/19/18 22:58
[2018-07-19 19:23] LABS: Baso % (Auto) 0.6 % (0.0-2.0); Eos # (Auto) 0.1 th/mm3 (0.0-0.4); Eos % (Auto) 1.7 % (0.0-4.0); Hematocrit 42.6 % (39.0-51.0); Hemoglobin 14.7 gm/dL (13.0-17.0); Lymph # (Auto) 1.8 th/mm3 (1.0-4.8); Lymph % (Auto) 21.7 % (9.0-44.0); Mean Corpuscular HGB Conc 34.4 % (32.0-36.0); Mean Corpuscular Hemoglobin 30.4 pg (27.0-34.0); Mean Corpuscular Volume 88.5 fL (80.0-100.0); Mean Platelet Volume 7.9 fL (7.0-11.0); Mono # (Auto) 0.8 th/mm3 (0.0-0.9); Mono % (Auto) 9.1 % (0.0-8.0); Neut # (Auto) 5.5 th/mm3 (1.8-7.7); Neut % (Auto) 66.9 % (16.0-70.0); Platelet Count 162 th/mm3 (150-450); Red Blood Count 4.82 mil/mm3 (4.50-5.90); Red Cell Distribution Width 13.4 % (11.6-17.2); White Blood Count 8.3 th/mm3 (4.0-11.0)
[2018-07-19 19:36] LABS: Activated Partial Thrombo Time 25.9 sec (23.4-31.7); Prothrombin Time 10.3 sec (9.8-11.6)
--- NOTE | 2018-07-19 19:41 | US ---
EXAM DATE: 07/19/2018 7:38 PM EST AGE/SEX: 52 years / Male INDICATIONS: Right leg swelling. CLINICAL DATA: This is the patient's initial encounter. Patient reports that signs and symptoms have been present for 4 - 6 days and indicates a pain score of 7/10. MEDICAL/SURGICAL HISTORY: Hypertension. Chest pain. None. COMPARISON: No prior exams available for comparison. TECHNIQUE: Venous ultrasound of both lower extremities was performed from the inguinal ligament to t he proximal calf. Real-time, color Doppler and spectral tracing, compression and augmentation techni ques were used. FINDINGS: Normal compression of the deep venous system from the inguinal region to the proximal calf . No echogenic clot is seen. Normal response of the venous system to augmentation and respiration. CONCLUSION: 1. The study is negative for lower extremity deep venous thrombosis. Electronically signed by: Juan Garcia MD 07/19/2018 7:40 PM EST
[2018-07-19 19:48] LABS: Albumin 3.4 g/dL (3.4-5.0); Anion Gap 9 meq/L (5-15); Aspartate Aminotransferase 49 U/L (15-37); Blood Urea Nitrogen 13 mg/dL (7-18); Calcium 8.8 mg/dL (8.5-10.1); Carbon Dioxide 27.1 meq/L (21.0-32.0); Chloride 101 meq/L (98-107); Glomerular Filtration Rate Greater Than 89 mL/min (>89); Glucose,Random 125 mg/dL (74-106); Potassium 3.6 meq/L (3.5-5.1); Sodium 137 meq/L (136-145)
[2018-07-19 19:49] LABS: Alanine Aminotransferase 81 U/L (12-78)
[2018-07-19 19:53] LABS: Alkaline Phosphatase 99 U/L (45-117); Total Protein 7.6 g/dL (6.4-8.2); Troponin I 0.13 ng/mL (0.02-0.05)
[2018-07-19 19:55] LABS: Creatine Kinase 63 U/L (39-308)
[2018-07-19] MEDS: Metoprolol Inj 5 MG/5 ML Vial IV.PUSH SCH ×3 (19:58→21:01)
--- NOTE | 2018-07-19 20:21 | CT ---
EXAM DATE: 07/19/2018 8:12 PM EST AGE/SEX: 52 years / Male INDICATIONS: Chest pain, evaluate for aneurysm. CLINICAL DATA: This is the patient's initial encounter. Patient reports that signs and symptoms have been present for 1 day and indicates a pain score of 10/10. MEDICAL/SURGICAL HISTORY: Hypertension. None. RADIATION DOSE: 11.48 CTDI (mGy) COMPARISON: No prior exams available for comparison. TECHNIQUE: Volumetric scanning was performed using a multi-row detector CT scanner during bolus infu estuardo of 80 ml Omnipaque 350 (iohexol) nonionic water-soluble contrast as a single exam dose. The da ta was post processed with a variety of visualization algorithms including full volume maximum intens ity projection, multi-planar sliding thin slab reformation, curved planar reformation, and surface re ndering techniques. Using automated exposure control and adjustment of the mA and/or kV according to patient size, radiation dose was kept as low as reasonably achievable to obtain optimal diagnostic q uality images. DICOM format image data is available electronically for review and comparison. FINDINGS: There is no thoracic or abdominal aortic aneurysm or dissection. The renal, superior mesenteric and i nferior mesenteric arteries appear patent. Mild constipation. Mild fatty liver. There is some air trapping in the lungs. Lung maría present on the right side anteriorly. 1. CONCLUSION: No thoracic or abdominal aortic aneurysm or dissection. Mild scarring in the lungs and mild air trapping. Electronically signed by: Juan Garcia MD 07/19/2018 8:20 PM EST
[2018-07-19] MEDS ORDERED: Bisacodyl 10 MG Supp RECTAL PRN (20:42)
[2018-07-19] MEDS ORDERED: hydrALAZINE HCl Inj 20 MG/ML Vial IV.PUSH ONE (20:45)
--- NOTE | 2018-07-19 22:00 | P.HPIM ---
History of Present Illness Primary Care Physician: Juma Epps MD History of Present Illness: This is a 52-year-old male with a PMH of HTN, Hyperlipidemia and Tobacco Abuse who presented to the ER with complaints of chest pain starting earlier this afternoon. Reports substernal chest pain, sharp, severe, 10/10, with radiation to back. Upon EMS arrival, pt noted to be significantly hypertensive w/ BP >200 's. Pt reports he stopped all antihypertensives approx 8mo ago because "my blood pressure was normal". Denies fever, chills or SOB. S/p NTG w/ improvement. On arrival, BP 189/103, HR 83, O2 sat 92% on RA, Afebrile. CBC unremarkable. INR 1.0. Chemistry essentially unremarkable. Troponin 0 0.13. CTA Thoracic Aorta no aneurysm or dissection. LE Doppler negative for DVT. S/ p Lopressor IV x3 in ER w/ minimal improvement in BP. Dr. Johnson consulted, recommended no Heparin in light of BP. Pt currently chest pain free. - Diagnosis (1) Chest pain (2) Elevated troponin (3) HTN (hypertension) (4) Tobacco abuse Inpatient Certification: I certify that the inpatient services were ordered in accordance with Medicare regulations governing the order. This includes certification that hospital inpatient services are reasonable and necessary and in the case of services not specified as inpatient-only under 42 CFR 419.22(n), that they are appropriately provided as inpatient services in accordance to with the 2-midnight benchmark under 43 CFR 412.3(e) Estimated Total Length of Stay (Days): 2 Plans for Post Hospital Care: Not yet determined Review of Systems PAST FAMILY HISTORY: Reviewed. No h/o DM or CAD All other systems reviewed negative except as stated in HPI [facility] - History History Provided By: Patient - Medical History Medical History: Medical History (Last Updated 07/19/18 @ 18:49 by Matt Nuno) Chest pain Hypertension - Tobacco History Second Hand Smoke Exposure: Yes Tobacco Use In Past 30 Days: Yes Smoking Status: Current every day smoker Tobacco Type: Cigarettes - Alcohol History How Often Do You Have a Drink Containing Alcohol: 4 or more times a week - Substance Use History Substance History: No History of Abuse - Travel History Recent Travel in the [place] Within the Last 8 Weeks: No Recent Travel Out of the Country Within the Last 8 Weeks: No - Immunization History Tetanus Immunization: >5 Years Medications and Allergies Active Medications: Active Medications Acetaminophen (Tylenol) 650 mg PO Q4H PRN PRN Reason: Temp > 100.4 Al Hydroxide/Mg Hydroxide (Milk Of Magnesia Liq) 30 ml PO Q12H PRN PRN Reason: Mild Constipation Aspirin (Ecotrin) 81 mg PO DAILY [facility] Bisacodyl (Dulcolax Supp) 10 mg RECTAL DAILY PRN PRN Reason: SEVERE CONSITIPATION Lactulose (Lactulose Liq) 30 ml PO DAILY PRN PRN Reason: SEVERE CONSITIPATION Lorazepam (Ativan Inj) 1 mg IV.PUSH Q4H PRN PRN Reason: WITDHRAWAL Metoprolol Tartrate (Lopressor) 25 mg PO BID [facility] Morphine Sulfate (Morphine Inj) 2 mg IV.PUSH Q4H PRN PRN Reason: PAIN 6-10 Nitroglycerin (Nitro-Bid 2% Oint) 0.5 inch TOPICAL Q6HR PRN PRN Reason: CHEST PAIN Ondansetron HCl (Zofran Inj) 4 mg IV.PUSH Q6H PRN PRN Reason: NAUSEA OR VOMITING Pravastatin Sodium (Pravachol) 40 mg PO DAILY [facility] Senna/Docusate Sodium (Rossy-Colace) 1 tab PO BID [facility] Sennosides (Senokot) 17.2 mg PO Q12H PRN PRN Reason: Moderate Constipation Sodium Chloride (Ns Flush) 2 ml IV.FLUSH UNSCH PRN PRN Reason: FLUSH AFTER USING IV ACCESS Sodium Chloride (Ns Flush) 2 ml IV.FLUSH BID [facility] Sodium Chloride (Ns Flush) 2 ml IV.FLUSH PRN PRN PRN Reason: FLUSH AFTER USING IV ACCESS Allergies Allergy/AdvReac Type Severity Reaction Status Date / Time No Known Allergies AdvReac Unknown Uncoded 01/15/18 23:32 Home Medications Medication Instructions Recorded Confirmed Type No Known Home Medications 07/19/18 07/19/18 History Exam Vital signs: Vital Signs 07/19/18 18:46 07/19/18 18:53 07/19/18 19:16 Temperature 98.1 F Pulse Rate 83 81 84 Respiratory Rate 20 20 Blood Pressure 189/103 H 189/103 H Pulse Oximetry 92 L 95 97 07/19/18 19:30 07/19/18 20:31 12/06/18 21:00 Temperature Pulse Rate 88 81 Respiratory Rate 18 18 18 Blood Pressure 187/100 H 175/95 H Pulse Oximetry 95 96 07/19/18 21:02 Temperature Pulse Rate Respiratory Rate 18 Blood Pressure Pulse Oximetry 95 Intake & Output 07/19/18 07/19/1818 06:59 18:59 06:59 Weight 136.078 kg Narrative: PE: GENERAL: Morbidly obese middle-aged white male in no acute distress. Multiple family members at bedside. SKIN: Focused skin assessment warm and dry. HEENT: PERRLA, EOMI. No scleral icterus or conjunctival pallor. No lid lag or facial droop. CARDIOVASCULAR: Regular rate and rhythm. No obvious murmurs to auscultation. No chest tenderness to palpation. RESPIRATORY: No obvious rhonchi or wheezing. Clear to auscultation. Breath sounds equal bilaterally. GASTROINTESTINAL: Abdomen soft, non-tender, nondistended. BS normal. MUSCULOSKELETAL: Extremities without clubbing, cyanosis, or edema. No obvious deformities. NEUROLOGICAL: Awake, alert and oriented x4. No focal neurologic deficits. Moving both upper and lower extremities spontaneously. PSYCHIATRIC: Appropriate mood and affect. Insight and judgment normal. Results - Labs CBC & Chem 7: 07/19/18 19:06 07/19/18 19:06 Labs: Short CBC 07/19/18 Range/Units 19:06 WBC 8.3 (4.0-11.0) th/mm3 Hgb 14.7 (13.0-17.0) gm/dL Hct 42.6 (39.0-51.0) % Plt Count 162 (150-450) th/mm3 [facility] 07/19/18 19:06 Sodium 137 Potassium 3.6 Chloride 101 Carbon Dioxide 27.1 BUN 13 Creatinine 0.70 Calcium 8.8 Cardiac Enzymes 07/19/18 Range/Units 19:06 Total Creatine Kinase 63 (39-308) U/L Troponin I 0.13 H (0.02-0.05) ng/mL Liver Function 07/19/18 Range/Units 19:06 Total Bilirubin 0.5 (0.2-1.0) mg/dL AST 49 H (15-37) U/L ALT 81 H (12-78) U/L Alkaline Phosphatase 99 (45-117) U/L Albumin 3.4 (3.4-5.0) g/dL - Imaging Impressions Thoracic Aorta CT 07/19/18 18:51 1. CONCLUSION: No thoracic or abdominal aortic aneurysm or dissection. Mild scarring in the lungs and mild air trapping. Venous Doppler Study 07/19/18 18:57 CONCLUSION: 1. The study is negative for lower extremity deep venous thrombosis. Caprini VTE Risk Assessment Caprini VTE Risk Assessment: No/Low Risk (score <= 1) Caprini Risk Assessment Model: Point Value = 1 Point Value = 2 Point Value = 3 Point Value = 5 Age 41-60 Minor surgery BMI > 25 kg/m2 Swollen legs Varicose veins or History of unexplained or recurrent spontaneous Oral contraceptives or hormone replacement Sepsis (< 1 month) Serious lung disease, including pneumonia (< 1 month) Abnormal pulmonary function Acute myocardial infarction Congestive heart failure (< 1 month) History of inflammatory bowel disease Medical patient at bed rest Age 61-74 Arthroscopic surgery Major open surgery (> 45 min) Laparoscopic surgery (> 45 min) Malignancy Confined to bed (> 72 hours) Immobilizing plaster cast Central venous access Age >= 75 History of VTE Family history of VTE Factor V Leiden Prothrombin [id number] Lupus anticoagulant Anticardiolipin antibodies Elevated serum homocysteine Heparin-induced thrombocytopenia Other congenital or acquired thrombophilia Stroke (< 1 month) Elective arthroplasty Hip, pelvis, or leg fracture Acute spinal cord injury (< 1 month) Prophylaxis Regimen: Total Risk Factor Score Risk Level Prophylaxis Regimen 0-1 Low Early ambulation 2 Moderate Order ONE of the following: *Sequential Compression Device (SCD) *Heparin 5000 units SQ BID 3-4 Higher Order ONE of the following medications: *Heparin 5000 units SQ TID *Enoxaparin/Lovenox 40 mg SQ daily (WT < 150 kg, CrCl > 30 mL/min) *Enoxaparin/Lovenox 30 mg SQ daily (WT < 150 kg, CrCl > 10-29 mL/min) *Enoxaparin/Lovenox 30 mg SQ BID (WT < 150 kg, CrCl > 30 mL/min) AND/OR *Sequential Compression Device (SCD) 5 or more Highest Order ONE of the following medications: *Heparin 5000 units SQ TID (Preferred with Epidurals) *Enoxaparin/Lovenox 40 mg SQ daily (WT < 150 kg, CrCl > 30 mL/min) *Enoxaparin/Lovenox 30 mg SQ daily (WT < 150 kg, CrCl > 10-29 mL/min) *Enoxaparin/Lovenox 30 mg SQ BID (WT < 150 kg, CrCl > 30 mL/min) AND *Sequential Compression Device (SCD) Assessment and Plan - Assessment (1) Chest pain Code(s): R07.9 - Chest pain, unspecified Status: Acute (2) Elevated troponin Code(s): R74.8 - Abnormal levels of other serum enzymes Status: Acute (3) HTN (hypertension) Code(s): I10 - Essential (primary) hypertension Status: Acute (4) Tobacco abuse Code(s): Z72.0 - Tobacco use Status: Acute - Plan A/P: 1. Chest Pain: acute onset of substernal chest pain, s/p NTG w/ relief. Admit for further eval/intervention. Telemetry, check serial cardiac enzymes, check Lipid Profile. Start ASA, Statin, Metoprolol. 2. Elevated Trop: Trop 0.13, EKG w/ no acute ischemia, likely secondary to strain from significantly elevated BP. ASA, Statin, Metoprolol as above. Dr. Johnson consulted, no Heparin at this time due to elevated BP. Continue NTG/ Morphine prn. 3. HTN: Uncontrolled. Secondary to non-compliance w/ medications, poor diet w / significant weight gain of 60lbs in last 1yr. Monitor BP closely, antihypertensives as needed. 4. Tobacco Abuse: Pt counselled, no NicoDerm to avoid vasoconstriction. Ativan prn as needed. 5. DVT Prophylaxis: SCD/Teds 6. Social work for d/c planning as needed. 7. Case discussed w/ ER physician at length, labs/records/imaging reviewed by me.
[2018-07-19] MEDS: Senna/Docusate Sodium 8.6/50 MG Tablet PO SCH (22:34)
[2018-07-19] MEDS: Metoprolol Tartrate 25 MG Tablet PO SCH (23:04)
[2018-07-19] MEDS: Morphine Sulfate Inj 2 MG/ML Vial IV.PUSH PRN (23:05)
--- NOTE | 2018-07-19 23:16 | MB ---
cc: Francisco Johnson MD DATE: 07/19/2018 HISTORY OF PRESENT ILLNESS: Robert is a very pleasant 52-year-old gentleman who has a history of hypertension, previously on hypertensive medications. He has not taken them for the past 7 months. He also notes a 70-pound weight gain over the last year. He takes NSAIDs for musculoskeletal pain. He presents with a chief complaint of chest pain and found to have severe hypertension. Currently, after nitro, he is chest pain free. Otherwise, he denies any fever, chills, cough, GI or bleeding, PND, orthopnea, syncope or dizziness. PAST MEDICAL HISTORY: As per history of present illness. ALLERGIES: NONE. SOCIAL HISTORY: He smokes every day. He drinks alcohol 4 or more times a week. CURRENT MEDICATIONS IN THE HOSPITAL: 1. Aspirin 81 mg daily. 2. Metoprolol 25 mg p.o. b.i.d. 3. Nitro paste 0.5 inches p.r.n. 4. Pravachol 40 mg daily. 5. The patient received hydralazine 10 mg IV push and metoprolol 5 mg IV push. PHYSICAL EXAMINATION: VITAL SIGNS: Currently, blood pressure is 175/95. On presentation, it was 189/103. Pulse 81. Temperature 98.1. GENERAL: He is alert and oriented x 3, in no acute distress. NECK: Supple. No JVD. No bruit. CARDIOVASCULAR: S1, S2. No murmurs, rubs or gallops. LUNGS: Clear to auscultation bilaterally. ABDOMEN: Soft, nontender and nondistended with positive bowel sounds. EXTREMITIES: No extremity edema. DIAGNOSTIC DATA: EKG shows normal sinus rhythm at 80 beats per minute, nonspecific ST-T wave changes. Thoracic aorta CT, no thoracic or abdominal aortic aneurysm or dissection. Venous Doppler study is negative for lower extremity deep venous thrombosis. LABORATORY DATA: White count 8.3, hemoglobin 14.7, hematocrit 42.6, platelet count 162. INR 1.0. Sodium 137, potassium 3.6, chloride 101, bicarbonate 27.1, BUN 13, creatinine 0.70, glucose 125, AST 49, ALT 81. Troponin is 0.13. BNP is 27. DIAGNOSES: 1. [id number] myocardial infarction. 2. Hypertension. 3. Morbid obesity. 4. Medical noncompliance. 5. Hyperglycemia. 6. Tobacco abuse. DISCUSSION: I agree with the current treatment plan of aspirin, Lopressor and half inch nitro paste. Obviously, we will need to be cautious about rapidly lowering his blood pressure to not precipitate cerebral hypoperfusion by lowering the pressure below his cerebral autoregulation curve. He is currently pain free on current medications. I strongly advised him to stop smoking. I suspect his troponin elevation is more likely from increased demand from his severely elevated blood pressure; however, he has multiple risk factors and I cannot completely rule out a primary obstructive etiology. Nevertheless, given the severely elevated blood pressure on presentation and the fact that he is pain free at this point in time, we will hold off on using heparin. I have discussed this with Dr. Underwood. We need to follow trends in the heart rate and blood pressure symptoms. We will also follow up a 2-D echo as well. MD SHARON Reddy/eddie , 09:24 PM , 09:33 PM
[2018-07-19 23:26] LABS: Bilirubin,Urine Negative (Negative); Clarity,Urine Clear (Clear); Color,Urine Amber (Yellw/Straw); Glucose,Urine (UA) Negative (Negative); Hyaline Casts,Urine 1 /lpf (0-3); Leukocyte Esterase,Urine Negative (Negative); Mucus,Urine Few /lpf (Occasional); Nitrite,Urine Negative (Negative); Specific Gravity,Urine 1.032 (1.002-1.035); Squamous Epithelial Cell,Urine <1 /hpf (0-5)
[2018-07-19 23:29] LABS: Amphetamine Screen,Urine Neg (Neg); Barbiturate Screen,Urine Neg (Neg); Cannabinoid Screen,Urine Neg (Neg); Cocaine Screen,Urine Neg (Neg)
[2018-07-19 23:35] LABS: Opiate Screen,Urine Neg (Neg)
[2018-07-20 02:07] LABS: Baso % (Auto) 0.5 % (0.0-2.0); Eos # (Auto) 0.2 th/mm3 (0.0-0.4); Eos % (Auto) 2.6 % (0.0-4.0); Hematocrit 41.8 % (39.0-51.0); Hemoglobin 14.2 gm/dL (13.0-17.0); Lymph # (Auto) 2.1 th/mm3 (1.0-4.8); Mean Corpuscular Hemoglobin 30.5 pg (27.0-34.0); Mean Corpuscular Volume 89.8 fL (80.0-100.0); Mono # (Auto) 0.7 th/mm3 (0.0-0.9); Mono % (Auto) 7.9 % (0.0-8.0); Neut # (Auto) 5.8 th/mm3 (1.8-7.7); Platelet Count 169 th/mm3 (150-450); Red Blood Count 4.65 mil/mm3 (4.50-5.90); Red Cell Distribution Width 13.3 % (11.6-17.2); White Blood Count 8.8 th/mm3 (4.0-11.0)
[2018-07-20] MEDS: Acetaminophen 325 MG Tablet PO PRN (02:20)
[2018-07-20 02:29] LABS: Alanine Aminotransferase 80 U/L (12-78); Albumin 3.2 g/dL (3.4-5.0); Anion Gap 8 meq/L (5-15); Aspartate Aminotransferase 54 U/L (15-37); Blood Urea Nitrogen 14 mg/dL (7-18); Calcium 8.1 mg/dL (8.5-10.1); Carbon Dioxide 29.4 meq/L (21.0-32.0); Chloride 102 meq/L (98-107); Cholesterol 218 mg/dL (120-200); Glomerular Filtration Rate Greater Than 89 mL/min (>89); Glucose,Random 132 mg/dL (74-106); Potassium 3.5 meq/L (3.5-5.1); Sodium 139 meq/L (136-145); Triglycerides 274 mg/dL (42-150)
[2018-07-20 02:33] LABS: Alkaline Phosphatase 96 U/L (45-117); Chol/HDL Ratio 6.15 Ratio; HDL Cholesterol 35.4 mg/dL (40.0-60.0); LDL Cholesterol,Calculated 128 mg/dL (0-99); Total Protein 7.5 g/dL (6.4-8.2)
[2018-07-20] MEDS: Morphine Sulfate Inj 2 MG/ML Vial IV.PUSH PRN ×2 (04:58→12:53)
[2018-07-20] MEDS: Metoprolol Tartrate 25 MG Tablet PO SCH ×2 (08:28→20:35)
[2018-07-20] MEDS: Senna/Docusate Sodium 8.6/50 MG Tablet PO SCH ×2 (08:28→20:39)
--- NOTE | 2018-07-20 10:44 | P.PNCA ---
Subjective Interval history: assymptomatic in nad Medications and Allergies Active Medications: Active Medications Acetaminophen (Tylenol) 650 mg PO Q4H PRN PRN Reason: Temp > 100.4 Last Admin: 07/20/18 02:20 Dose: 650 mg Al Hydroxide/Mg Hydroxide (Milk Of Magnesia Liq) 30 ml PO Q12H PRN PRN Reason: Mild Constipation Aspirin (Ecotrin) [address] [facility] Last Admin: 07/20/18 08:28 Dose: 81 mg Bisacodyl (Dulcolax Supp) 10 mg RECTAL DAILY PRN PRN Reason: SEVERE CONSITIPATION Lactulose (Lactulose Liq) 30 ml PO DAILY PRN PRN Reason: SEVERE CONSITIPATION Lorazepam (Ativan Inj) 1 mg IV.PUSH Q4H PRN PRN Reason: HOLDEN Metoprolol Tartrate (Lopressor) [address] [facility] Last Admin: 07/20/18 08:28 Dose: 25 mg Morphine Sulfate (Morphine Inj) 2 mg IV.PUSH Q4H PRN PRN Reason: PAIN 6-10 Last Admin: 07/20/18 04:58 Dose: 2 mg Nitroglycerin (Nitro-Bid 2% Oint) 0.5 inch TOPICAL Q6HR PRN PRN Reason: CHEST PAIN Ondansetron HCl (Zofran Inj) 4 mg IV.PUSH Q6H PRN PRN Reason: NAUSEA OR VOMITING Pravastatin Sodium (Pravachol) [address] [facility] Last Admin: 07/20/18 08:28 Dose: 40 mg Senna/Docusate Sodium (Rossy-Colace) [address] [facility] Last Admin: 07/20/18 08:28 Dose: 1 tab Sennosides (Senokot) 17.2 mg PO Q12H PRN PRN Reason: Moderate Constipation Sodium Chloride (Ns Flush) 2 ml IV.FLUSH UNSCH PRN PRN Reason: FLUSH AFTER USING IV ACCESS Sodium Chloride (Ns Flush) [address] [facility] Last Admin: 07/20/18 08:29 Dose: 2 ml Sodium Chloride (Ns Flush) 2 ml IV.FLUSH PRN PRN PRN Reason: FLUSH AFTER USING IV ACCESS Allergies Allergy/AdvReac Type Severity Reaction Status Date / Time No Known Allergies AdvReac Unknown Uncoded 01/15/18 23:32 Home Medications Medication Instructions Recorded Confirmed Type No Known Home Medications 07/19/18 07/19/18 History Physical Exam Vital signs: Vital Signs 07/19/18 18:46 07/19/18 18:53 07/19/18 19:16 Temperature 98.1 F Pulse Rate 83 81 84 Respiratory Rate 20 20 Blood Pressure 189/103 H 189/103 H Pulse Oximetry 92 L 95 97 07/19/18 19:30 07/19/18 20:00 07/19/18 20:31 Temperature Pulse Rate 88 80 Respiratory Rate 18 18 18 Blood Pressure 187/100 H 203/117 H Pulse Oximetry 95 95 07/19/18 21:00 07/19/18 21:02 07/19/18 21:15 Temperature Pulse Rate 81 75 Respiratory Rate 18 18 18 Blood Pressure 175/95 H 165/80 H Pulse Oximetry 96 95 96 07/19/18 21:45 07/19/18 22:30 07/20/18 00:00 Temperature 97.2 F L Pulse Rate 79 86 84 Respiratory Rate 18 18 22 Blood Pressure 160/95 H 121/98 H 155/94 H Pulse Oximetry 96 98 96 07/20/18 00:01 07/20/18 01:01 07/20/18 02:00 Temperature Pulse Rate 79 66 67 Respiratory Rate Blood Pressure Pulse Oximetry 07/20/18 03:00 07/20/18 04:00 07/20/18 05:00 Temperature 98.0 F Pulse Rate 72 72 65 Respiratory Rate 18 Blood Pressure 129/83 Pulse Oximetry 07/20/18 06:00 07/20/18 07:00 Temperature Pulse Rate 65 71 Respiratory Rate Blood Pressure Pulse Oximetry Intake & Output 07/19/18 07/20/18 07/20/18 18:59 06:59 18:59 Intake Total 240 / 240 Output Total 300 / 300 Balance -60 / -60 Weight 136.078 kg 150 kg Intake: Oral 240 / 240 Output: Urine 300 / 300 Other: Date of Last Bowel Movement 07/20/18 07/19/18 - Constitutional no acute distress - Routine HEENT Exam Head: Present: normocephalic - Routine Neck Exam Present: supple - Routine Respiratory Exam Present: CTA bilaterally - Routine Cardiovascular Exam Present: S1, S2 - Routine Abdominal Exam Present: soft - Routine Extremities Exam Comments: no mihir Results 07/20/18 01:23 07/20/18 01:23 Cardiac Enzymes 07/19/18 07/19/18 07/20/18 Range/Units 19:06 19:06 01:23 AST 49 H 54 H (15-37) U/L Troponin I 0.13 H 0.50 H (0.02-0.05) ng/mL B-Natriuretic Peptide 27 (0-100) pg/mL 07/20/18 Range/Units 07:11 AST (15-37) U/L Troponin I 0.79 H* (0.02-0.05) ng/mL B-Natriuretic Peptide (0-100) pg/mL Coagulation 07/19/18 07/19/18 Range/Units 19:06 19:06 PT 10.3 (9.8-11.6) sec APTT 25.9 (23.4-31.7) sec B-Natriuretic Peptide 27 (0-100) pg/mL Lipids 07/20/18 Range/Units 01:23 Triglycerides 274 H (42-150) mg/dL Cholesterol 218 H (120-200) mg/dL HDL Cholesterol 35.4 L (40.0-60.0) mg/dL Cholesterol/HDL Ratio 6.15 Ratio CBC 07/19/18 07/20/18 Range/Units 19:06 01:23 WBC 8.3 8.8 (4.0-11.0) th/mm3 RBC 4.82 4.65 (4.50-5.90) mil/mm3 Hgb 14.7 14.2 (13.0-17.0) gm/dL Hct 42.6 41.8 (39.0-51.0) % Plt Count 162 169 (150-450) th/mm3 Neut # (Auto) 5.5 5.8 (1.8-7.7) th/mm3 Lymph # (Auto) 1.8 2.1 (1.0-4.8) th/mm3 Craig # (Auto) 0.8 0.7 (0.0-0.9) th/mm3 Eos # (Auto) 0.1 0.2 (0.0-0.4) th/mm3 Baso # (Auto) 0.0 0.0 (0.0-0.2) th/mm3 Comprehensive Metabolic Panel 07/19/18 07/20/18 Range/Units 19:06 01:23 Sodium 137 139 (136-145) meq/L Potassium 3.6 3.5 (3.5-5.1) meq/L Chloride 101 102 (98-107) meq/L Carbon Dioxide 27.1 29.4 (21.0-32.0) meq/L BUN 13 14 (7-18) mg/dL Creatinine 0.70 0.77 (0.60-1.30) mg/dL Calcium 8.8 8.1 L (8.5-10.1) mg/dL AST 49 H 54 H (15-37) U/L ALT 81 H 80 H (12-78) U/L Alkaline Phosphatase 99 96 (45-117) U/L Total Protein 7.6 7.5 (6.4-8.2) g/dL Albumin 3.4 3.2 L (3.4-5.0) g/dL Intake and Output 07/19/18 07/20/18 07/20/18 22:59 06:59 14:59 Intake Total 240 / 240 Output Total 300 / 300 Balance -60 / -60 Intake: Oral 240 / 240 Output: Urine 300 / 300 Other: Date of Last Bowel Movement 07/20/18 07/19/18 Weight 136.078 kg 150 kg - Imaging and Cardiology Imaging: Impressions Thoracic Aorta CT 07/19/18 18:51 1. CONCLUSION: No thoracic or abdominal aortic aneurysm or dissection. Mild scarring in the lungs and mild air trapping. Venous Doppler Study 07/19/18 18:57 CONCLUSION: 1. The study is negative for lower extremity deep venous thrombosis. Assessment and Plan - Assessment (1) Hypertensive urgency Code(s): I16.0 - Hypertensive urgency Status: Acute (2) Non-ST elevated myocardial infarction (non-STEMI) Code(s): I21.4 - Non-ST elevation (NSTEMI) myocardial infarction Status: Acute (3) Chest pain Code(s): R07.9 - Chest pain, unspecified Status: Acute (4) Elevated troponin Code(s): R74.8 - Abnormal levels of other serum enzymes Status: Acute (5) HTN (hypertension) Code(s): I10 - Essential (primary) hypertension Status: Acute (6) Tobacco abuse Code(s): Z72.0 - Tobacco use Status: Acute - Plan 1.) NSTEMI - assymptomatic with bp control, multiple risk factors, continue to trend troponin until peak, continue aspirin, metoprolol, pravachol, f/u echo, i strongly advised the patient to stop smoking and avoid nsaids; possible cath 05/31
--- NOTE | 2018-07-20 13:13 | P.PNIM ---
Subjective Interval history: No further complaints of chest pain from the patient. He does have an upper trend in his troponin levels which have not yet shown evidence of peaking. His primary complaint when seen is right knee pain. Ultrasound of lower extremity shows no evidence of DVT. Etiology for his pain could be related to osteoarthritis or gout or lower back osteoarthritis. Physical Exam Vital signs: Last Vital Signs Temp 98.0 F 07/20/18 04:00 Pulse 76 07/20/18 11:00 Resp 18 07/20/18 08:00 BP 129/83 07/20/18 04:00 Pulse Ox 96 07/20/18 10:55 Intake & Output 07/18/18 07/19/18 07/20/18 07/21/18 06:59 06:59 06:59 06:59 Intake Total 240 / 240 Output Total 300 / 300 Balance -60 / -60 Weight 150 kg Narrative: GENERAL: NAD, A&Ox3, severe obesity HEAD: Normocephalic. NECK: Supple, trachea midline. No lymphadenopathy. EYES: No scleral icterus. No injection or drainage. CARDIOVASCULAR: Regular rate and rhythm without murmurs, gallops, or rubs. RESPIRATORY: Breath sounds equal bilaterally. No accessory muscle use. GASTROINTESTINAL: Abdomen soft, non-tender, nondistended. MUSCULOSKELETAL: No cyanosis, or edema. Right leg tenderness with outpatient and range of motion. SKIN: Warm and dry. NEURO: No focal neurological deficits. Results Labs CBC & Chem 7: 07/20/18 01:23 07/20/18 01:23 Imaging Imaging: Impressions Thoracic Aorta CT 07/19/18 18:51 1. CONCLUSION: No thoracic or abdominal aortic aneurysm or dissection. Mild scarring in the lungs and mild air trapping. Venous Doppler Study 07/19/18 18:57 CONCLUSION: 1. The study is negative for lower extremity deep venous thrombosis. Assessment and Plan (1) Hypertensive urgency: Code(s): I16.0 - Hypertensive urgency Status: Acute (2) Non-ST elevated myocardial infarction (non-STEMI): Code(s): I21.4 - Non-ST elevation (NSTEMI) myocardial infarction Status: Acute (3) Chest pain: Code(s): R07.9 - Chest pain, unspecified Status: Acute (4) Elevated troponin: Code(s): R74.8 - Abnormal levels of other serum enzymes Status: Acute (5) HTN (hypertension): Code(s): I10 - Essential (primary) hypertension Status: Acute (6) Tobacco abuse: Code(s): Z72.0 - Tobacco use Status: Acute Plan 52-year-old male admitted secondary to acute chest pain Chest pain Troponin elevation Continue to follow cardiac enzymes Cardiology following Continue aspirin Nitroglycerin as needed Continue statin Continue metoprolol Uncontrolled hypertension Follow blood pressures closely Continue antihypertensives (Hydralazine, Metoprolol) Right knee pain Gout versus osteoarthritis Check uric acid level Tramadol initiated as a treatment Nicotine dependence/abuse Patient counseled to quit DVT prophylaxis SCDs Progress Note: Quality VTE Deep Vein Thrombosis/Pulmonary Embolism Present on Admission: Yes _ (1) Chest pain Qualifiers: Chest pain type: Ischemic chest pain type: (2) HTN (hypertension) Qualifiers: Hypertension type:
[2018-07-20] MEDS: Ketorolac Inj 30 MG/ML (IVP) Vial IV.PUSH SCH ×2 (14:43→21:13)
[2018-07-21] MEDS: Ketorolac Inj 30 MG/ML (IVP) Vial IV.PUSH SCH ×3 (05:04→21:09)
[2018-07-21 06:09] LABS: Baso % (Auto) 0.5 % (0.0-2.0); Eos # (Auto) 0.2 th/mm3 (0.0-0.4); Hematocrit 42.1 % (39.0-51.0); Hemoglobin 14.6 gm/dL (13.0-17.0); Lymph # (Auto) 1.8 th/mm3 (1.0-4.8); Lymph % (Auto) 27.8 % (9.0-44.0); Mean Corpuscular HGB Conc 34.6 % (32.0-36.0); Mean Corpuscular Volume 89.5 fL (80.0-100.0); Mean Platelet Volume 8.1 fL (7.0-11.0); Mono # (Auto) 0.6 th/mm3 (0.0-0.9); Mono % (Auto) 9.1 % (0.0-8.0); Neut # (Auto) 3.9 th/mm3 (1.8-7.7); Neut % (Auto) 59.6 % (16.0-70.0); Platelet Count 157 th/mm3 (150-450); Red Cell Distribution Width 13.6 % (11.6-17.2); White Blood Count 6.5 th/mm3 (4.0-11.0)
[2018-07-21 06:42] LABS: Alanine Aminotransferase 105 U/L (12-78); Albumin 3.1 g/dL (3.4-5.0); Anion Gap 5 meq/L (5-15); Aspartate Aminotransferase 71 U/L (15-37); Blood Urea Nitrogen 16 mg/dL (7-18); Calcium 8.1 mg/dL (8.5-10.1); Carbon Dioxide 31.6 meq/L (21.0-32.0); Chloride 102 meq/L (98-107); Glomerular Filtration Rate Greater Than 89 mL/min (>89); Glucose,Random 105 mg/dL (74-106); Potassium 3.7 meq/L (3.5-5.1); Sodium 139 meq/L (136-145)
[2018-07-21 06:46] LABS: Alkaline Phosphatase 86 U/L (45-117); Total Protein 7.6 g/dL (6.4-8.2); Troponin I 0.23 ng/mL (0.02-0.05)
--- NOTE | 2018-07-21 08:51 | P.PNCA ---
Subjective Interval history: assymptomatic in nad Medications and Allergies Active Medications: Active Medications Acetaminophen (Tylenol) 650 mg PO Q4H PRN PRN Reason: Temp > 100.4 Last Admin: 07/20/18 02:20 Dose: 650 mg Al Hydroxide/Mg Hydroxide (Milk Of Magnesia Liq) 30 ml PO Q12H PRN PRN Reason: Mild Constipation Aspirin (Ecotrin) 81 mg PO DAILY [facility] Last Admin: 07/20/18 08:28 Dose: 81 mg Bisacodyl (Dulcolax Supp) 10 mg RECTAL DAILY PRN PRN Reason: SEVERE CONSITIPATION Ketorolac Tromethamine (Toradol Inj) 30 mg IV.PUSH Q8HR [facility] Stop: 07/22/18 23:59 Last Admin: 07/21/18 05:04 Dose: 30 mg Lactulose (Lactulose Liq) 30 ml PO DAILY PRN PRN Reason: SEVERE CONSITIPATION Lorazepam (Ativan Inj) 1 mg IV.PUSH Q4H PRN PRN Reason: HOLDEN Last Admin: 07/20/18 21:14 Dose: 1 mg Metoprolol Tartrate (Lopressor) 25 mg PO BID [facility] [place] Last Admin: 07/20/18 20:35 Dose: 25 mg Morphine Sulfate (Morphine Inj) 2 mg IV.PUSH Q4H PRN PRN Reason: PAIN 6-10 Last Admin: 07/20/18 12:53 Dose: 2 mg Nitroglycerin (Nitro-Bid 2% Oint) 0.5 inch TOPICAL Q6HR PRN PRN Reason: CHEST PAIN Ondansetron HCl (Zofran Inj) 4 mg IV.PUSH Q6H PRN PRN Reason: NAUSEA OR VOMITING Pravastatin Sodium (Pravachol) 40 mg PO DAILY [facility] Last Admin: 07/20/18 08:28 Dose: 40 mg Senna/Docusate Sodium (Rossy-Colace) 1 tab PO BID [facility] Last Admin: 07/20/18 20:39 Dose: Not Given Sennosides (Senokot) 17.2 mg PO Q12H PRN PRN Reason: Moderate Constipation Sodium Chloride (Ns Flush) 2 ml IV.FLUSH UNSCH PRN PRN Reason: FLUSH AFTER USING IV ACCESS Sodium Chloride (Ns Flush) 2 ml IV.FLUSH BID [facility] Last Admin: 07/20/18 20:35 Dose: 2 ml Sodium Chloride (Ns Flush) 2 ml IV.FLUSH PRN PRN PRN Reason: FLUSH AFTER USING IV ACCESS Allergies Allergy/AdvReac Type Severity Reaction Status Date / Time No Known Allergies AdvReac Unknown Uncoded 01/15/18 23:32 Home Medications Medication Instructions Recorded Confirmed Type No Known Home Medications 07/19/18 07/19/18 History Physical Exam Vital signs: Vital Signs 07/20/18 09:00 07/20/18 10:00 07/20/18 10:55 Temperature Pulse Rate 70 68 Respiratory Rate Blood Pressure Pulse Oximetry 96 07/20/18 11:00 07/20/18 12:00 07/20/18 13:00 Temperature 97.9 F Pulse Rate 76 76 66 Respiratory Rate 24 Blood Pressure 142/68 H Pulse Oximetry 95 07/20/18 14:00 07/20/18 15:00 07/20/18 16:00 Temperature 97.6 F Pulse Rate 70 66 68 Respiratory Rate 20 Blood Pressure 146/83 H Pulse Oximetry 95 07/20/18 17:00 07/20/18 18:00 07/20/18 19:00 Temperature Pulse Rate 69 68 70 Respiratory Rate Blood Pressure Pulse Oximetry 07/20/18 20:00 07/20/18 21:00 07/20/18 22:00 Temperature 98 F Pulse Rate 72 68 69 Respiratory Rate 22 Blood Pressure 155/84 H Pulse Oximetry 95 07/20/18 23:00 07/21/18 00:00 07/21/18 01:00 Temperature 98.2 F Pulse Rate 64 64 69 Respiratory Rate 20 Blood Pressure 165/93 H Pulse Oximetry 94 L 07/21/18 02:00 07/21/18 03:00 07/21/18 03:58 Temperature 98.4 F Pulse Rate 63 65 64 Respiratory Rate 18 Blood Pressure 129/84 Pulse Oximetry 94 L 07/21/18 04:00 07/21/18 05:00 07/21/18 05:42 Temperature Pulse Rate 64 66 67 Respiratory Rate Blood Pressure Pulse Oximetry 07/21/18 08:00 Temperature Pulse Rate Respiratory Rate Blood Pressure Pulse Oximetry 94 L Intake & Output 07/20/18 07/21/18 07/21/18 18:59 06:59 18:59 Intake Total 600 / 600 480 / 480 Output Total 700 / 700 1000 / 1000 Balance -100 / -100 -520 / -520 Weight 150.1 kg Intake: Oral 600 / 600 480 / 480 Output: Urine 700 / 700 1000 / 1000 Other: Date of Last Bowel Movement 07/20/18 07/20/18 # Bowel Movements 0 - Constitutional no acute distress - Routine HEENT Exam Head: Present: normocephalic - Routine Neck Exam Present: supple - Routine Respiratory Exam Present: CTA bilaterally - Routine Cardiovascular Exam Present: S1, S2 - Routine Abdominal Exam Present: soft - Routine Extremities Exam Comments: no mihir Results 07/21/18 05:23 07/21/18 05:23 Cardiac Enzymes 07/19/18 07/19/18 07/20/18 Range/Units 19:06 19:06 01:23 AST 49 H 54 H (15-37) U/L Troponin I 0.13 H 0.50 H (0.02-0.05) ng/mL B-Natriuretic Peptide 27 (0-100) pg/mL 07/20/18 07/21/18 Range/Units 07:11 05:23 AST 71 H (15-37) U/L Troponin I 0.79 H* 0.23 H (0.02-0.05) ng/mL B-Natriuretic Peptide (0-100) pg/mL Coagulation 07/19/18 07/19/18 Range/Units 19:06 19:06 PT 10.3 (9.8-11.6) sec APTT 25.9 (23.4-31.7) sec B-Natriuretic Peptide 27 (0-100) pg/mL Lipids 07/20/18 Range/Units 01:23 Triglycerides 274 H (42-150) mg/dL Cholesterol 218 H (120-200) mg/dL HDL Cholesterol 35.4 L (40.0-60.0) mg/dL Cholesterol/HDL Ratio 6.15 Ratio CBC 07/19/18 07/20/18 07/21/18 Range/Units 19:06 01:23 05:23 WBC 8.3 8.8 6.5 (4.0-11.0) th/mm3 RBC 4.82 4.65 4.70 (4.50-5.90) mil/mm3 Hgb 14.7 14.2 14.6 (13.0-17.0) gm/dL Hct 42.6 41.8 42.1 (39.0-51.0) % Plt Count 162 169 157 (150-450) th/mm3 Neut # (Auto) 5.5 5.8 3.9 (1.8-7.7) th/mm3 Lymph # (Auto) 1.8 2.1 1.8 (1.0-4.8) th/mm3 Alexander # (Auto) 0.8 0.7 0.6 (0.0-0.9) th/mm3 Eos # (Auto) 0.1 0.2 0.2 (0.0-0.4) th/mm3 Baso # (Auto) 0.0 0.0 0.0 (0.0-0.2) th/mm3 Comprehensive Metabolic Panel 07/19/18 07/20/18 07/21/18 Range/Units 19:06 01:23 05:23 Sodium 137 139 139 (136-145) meq/L Potassium 3.6 3.5 3.7 (3.5-5.1) meq/L Chloride 101 102 102 (98-107) meq/L Carbon Dioxide 27.1 29.4 31.6 (21.0-32.0) meq/L BUN 13 14 16 (7-18) mg/dL Creatinine 0.70 0.77 0.70 (0.60-1.30) mg/dL Calcium 8.8 8.1 L 8.1 L (8.5-10.1) mg/dL AST 49 H 54 H 71 H (15-37) U/L ALT 81 H 80 H 105 H (12-78) U/L Alkaline Phosphatase 99 96 86 (45-117) U/L Total Protein 7.6 7.5 7.6 (6.4-8.2) g/dL Albumin 3.4 3.2 L 3.1 L (3.4-5.0) g/dL Intake and Output 07/20/18 07/21/18 07/21/18 22:59 06:59 14:59 Intake Total 600 / 600 480 / 480 Output Total 700 / 700 1000 / 1000 Balance -100 / -100 -520 / -520 Intake: Oral 600 / 600 480 / 480 Output: Urine 700 / 700 1000 / 1000 Other: Date of Last Bowel Movement 07/20/18 07/20/18 # Bowel Movements 0 Weight 150.1 kg - Imaging and Cardiology Imaging: Impressions Thoracic Aorta CT 07/19/18 18:51 1. CONCLUSION: No thoracic or abdominal aortic aneurysm or dissection. Mild scarring in the lungs and mild air trapping. Venous Doppler Study 07/19/18 18:57 CONCLUSION: 1. The study is negative for lower extremity deep venous thrombosis. Assessment and Plan - Assessment (1) Hypertensive urgency Code(s): I16.0 - Hypertensive urgency Status: Acute (2) Non-ST elevated myocardial infarction (non-STEMI) Code(s): I21.4 - Non-ST elevation (NSTEMI) myocardial infarction Status: Acute (3) Chest pain Code(s): R07.9 - Chest pain, unspecified Status: Acute (4) Elevated troponin Code(s): R74.8 - Abnormal levels of other serum enzymes Status: Acute (5) HTN (hypertension) Code(s): I10 - Essential (primary) hypertension Status: Acute (6) Tobacco abuse Code(s): Z72.0 - Tobacco use Status: Acute - Plan 1.) NSTEMI - assymptomatic with bp control, multiple risk factors, continue to trend troponin until peak, continue aspirin, metoprolol, pravachol, f/u echo, i strongly advised the patient to stop smoking and avoid nsaids; possible cath 05/31
[2018-07-21] MEDS: Senna/Docusate Sodium 8.6/50 MG Tablet PO SCH ×2 (09:02→21:09)
[2018-07-21] MEDS: Metoprolol Tartrate 25 MG Tablet PO SCH ×2 (09:02→21:09)
[2018-07-21] MEDS: Morphine Sulfate Inj 2 MG/ML Vial IV.PUSH PRN ×2 (09:11→21:09)
--- NOTE | 2018-07-21 13:26 | P.PNIM ---
Subjective Interval history: Significant improvement in right lower extremity/knee pain compared to yesterday. Good response to NSAIDs. No other complaints. Physical Exam Vital signs: Last Vital Signs Temp 96.2 F L 07/21/18 08:00 Pulse 83 07/21/18 08:00 Resp 18 07/21/18 08:00 BP 172/145 H 07/21/18 08:00 Pulse Ox 96 07/21/18 08:00 Intake & Output 07/19/18 07/20/18 07/21/18 07/22/18 06:59 06:59 06:59 06:59 Intake Total 240 / 240 1080 / 1080 Output Total 300 / 300 1700 / 1700 Balance -60 / -60 -620 / -620 Weight 150 kg 150.1 kg Narrative: GENERAL: NAD, A&Ox3, severe obesity HEAD: Normocephalic. NECK: Supple, trachea midline. No lymphadenopathy. EYES: No scleral icterus. No injection or drainage. CARDIOVASCULAR: Regular rate and rhythm without murmurs, gallops, or rubs. RESPIRATORY: Breath sounds equal bilaterally. No accessory muscle use. GASTROINTESTINAL: Abdomen soft, non-tender, nondistended. MUSCULOSKELETAL: No cyanosis, or edema. Right leg tenderness improving, range of motion improving. SKIN: Warm and dry. NEURO: No focal neurological deficits. Results Labs CBC & Chem 7: 07/21/18 05:23 07/21/18 05:23 Assessment and Plan (1) Hypertensive urgency: Code(s): I16.0 - Hypertensive urgency Status: Acute (2) Non-ST elevated myocardial infarction (non-STEMI): Code(s): I21.4 - Non-ST elevation (NSTEMI) myocardial infarction Status: Acute (3) Chest pain: Code(s): R07.9 - Chest pain, unspecified Status: Acute (4) Elevated troponin: Code(s): R74.8 - Abnormal levels of other serum enzymes Status: Acute (5) HTN (hypertension): Code(s): I10 - Essential (primary) hypertension Status: Acute (6) Tobacco abuse: Code(s): Z72.0 - Tobacco use Status: Acute Plan 52-year-old male admitted secondary to acute chest pain Heart cath planned on 07/23/2018. NSAIDs will be discontinued on 07/22/2018. Right knee pain is improving. Uric acid levels were not suggestive of gout. Possible pseudogout. Chest pain Troponin elevation Continue to follow cardiac enzymes Cardiology following Continue aspirin Nitroglycerin as needed Continue statin Continue metoprolol Uncontrolled hypertension Follow blood pressures closely Continue antihypertensives (Hydralazine, Metoprolol) Right knee pain Gout versus osteoarthritis Check uric acid level Tramadol initiated as a treatment Nicotine dependence/abuse Patient counseled to quit DVT prophylaxis SCDs Progress Note: Quality VTE Deep Vein Thrombosis/Pulmonary Embolism Present on Admission: Yes _ (1) Chest pain Qualifiers: Chest pain type: Ischemic chest pain type: (2) HTN (hypertension) Qualifiers: Hypertension type:
--- NOTE | 2018-07-21 15:20 | ECHRPT ---
Indication: Coronary Atherosclerosis CONCLUSIONS Normal left ventricular size. Moderate concentric left ventricular hypertrophy. The left ventricular systolic function is normal with an estimated ejection fraction in the range of 55-60%. The left atrial size is moderately dilated. Normal atrial septal thickness. There is trace tricuspid valve regurgitation. The estimated pulmonary arterial pressure is 40 mmHg. The pulmonary valve is not well visualized. The inferior vena cava was not well visualized. BP: / HR: Rhythm: MEASUREMENTS (Male / Female) Normal Values Technical Quality:Technically difficult study 2D ECHO LV Diastolic Diameter PLAX 5.3 cm 4.2 - 5.9 / 3.9 - 5.3 cm LV Systolic Diameter PLAX 3.9 cm IVS Diastolic Thickness 1.3 cm 0.6 - 1.0 / 0.6 - 0.9 cm LVPW Diastolic Thickness 1.3 cm 0.6 - 1.0 / 0.6 - 0.9 cm LV Relative Wall Thickness 0.5 RV Internal Dim ED PLAX 3.9 cm LVOT Diameter 2.2 cm Aortic Root Diameter 3.4 cm LA Systolic Diameter LX 4.7 cm 3.0 - 4.0 / 2.7 - 3.8 cm DOPPLER TR Peak Velocity 273.0 cm/s TR Peak Gradient 29.8 mmHg Right Atrial Pressure 10.0 mmHg Pulmonary Artery Systolic Pressu 39.8 mmHg Right Ventricular Systolic Press 39.8 mmHg PV Peak Velocity 107.0 cm/s PV Peak Gradient 4.6 mmHg FINDINGS LEFT VENTRICLE Normal left ventricular size. Moderate concentric left ventricular hypertrophy. The left ventricular systolic function is normal with an estimated ejection fraction in the range of 55-60%. RIGHT VENTRICLE Normal right ventricular size and systolic function. LEFT ATRIUM The left atrial size is moderately dilated. RIGHT ATRIUM The right atrial size is normal. ATRIAL SEPTUM Normal atrial septal thickness. AORTA The aortic root and proximal ascending aorta are normal in size on limited imaging. MITRAL VALVE Structurally normal mitral valve. AORTIC VALVE Trileaflet aortic valve. TRICUSPID VALVE There is trace tricuspid valve regurgitation. The estimated pulmonary arterial pressure is 40 mmHg. PULMONARY VALVE The pulmonary valve is not well visualized. VESSELS The inferior vena cava was not well visualized. PERICARDIUM No pericardial effusion. Cachorro Harris MD, FACC (Electronically Signed) Final Date:21 July 2018 15:20
[2018-07-21] MEDS: hydrALAZINE HCl Inj 20 MG/ML Vial IV.PUSH PRN (16:55)
--- NOTE | 2018-07-21 17:48 | ECG ---
Date Performed: 07/19/2018 Time Performed: 18:52:50 PTAGE: 52 years EKG: Sinus rhythm POSSIBLE INFERIOR MYOCARDIAL INFARCTION BORDERLINE ECG INTERPRETATION BASED ON A DEFAULT AGE OF 39 Y EARS PREVIOUS TRACING : 01/16/2018 12.08 DOCTOR: Burak Lagos Interpretating Date/Time 07/21/2018 17:32:15
[2018-07-22] MEDS: Acetaminophen 325 MG Tablet PO PRN (02:56)
[2018-07-22 05:00] LABS: Baso % (Auto) 0.5 % (0.0-2.0); Eos # (Auto) 0.2 th/mm3 (0.0-0.4); Eos % (Auto) 2.8 % (0.0-4.0); Hematocrit 40.9 % (39.0-51.0); Hemoglobin 14.1 gm/dL (13.0-17.0); Lymph # (Auto) 1.8 th/mm3 (1.0-4.8); Lymph % (Auto) 26.8 % (9.0-44.0); Mean Corpuscular HGB Conc 34.5 % (32.0-36.0); Mean Corpuscular Hemoglobin 30.6 pg (27.0-34.0); Mean Corpuscular Volume 88.7 fL (80.0-100.0); Mean Platelet Volume 8.2 fL (7.0-11.0); Mono # (Auto) 0.6 th/mm3 (0.0-0.9); Mono % (Auto) 9.4 % (0.0-8.0); Neut # (Auto) 4.1 th/mm3 (1.8-7.7); Neut % (Auto) 60.5 % (16.0-70.0); Platelet Count 144 th/mm3 (150-450); Red Blood Count 4.61 mil/mm3 (4.50-5.90); Red Cell Distribution Width 13.3 % (11.6-17.2); White Blood Count 6.7 th/mm3 (4.0-11.0)
[2018-07-22] MEDS: Ketorolac Inj 30 MG/ML (IVP) Vial IV.PUSH SCH ×3 (05:10→22:52)
[2018-07-22 05:23] LABS: Albumin 3.1 g/dL (3.4-5.0); Anion Gap 5 meq/L (5-15); Aspartate Aminotransferase 52 U/L (15-37); Blood Urea Nitrogen 14 mg/dL (7-18); Calcium 8.4 mg/dL (8.5-10.1); Carbon Dioxide 28.9 meq/L (21.0-32.0); Chloride 105 meq/L (98-107); Glomerular Filtration Rate Greater Than 89 mL/min (>89); Glucose,Random 125 mg/dL (74-106); Sodium 139 meq/L (136-145)
[2018-07-22 05:24] LABS: Alanine Aminotransferase 90 U/L (12-78)
[2018-07-22 05:25] LABS: Alkaline Phosphatase 90 U/L (45-117); Total Protein 7.1 g/dL (6.4-8.2)
[2018-07-22] MEDS: Morphine Sulfate Inj 2 MG/ML Vial IV.PUSH PRN ×3 (08:37→17:23)
[2018-07-22] MEDS: Metoprolol Tartrate 25 MG Tablet PO SCH ×2 (08:37→22:52)
[2018-07-22] MEDS: Senna/Docusate Sodium 8.6/50 MG Tablet PO SCH ×2 (08:37→22:50)
--- NOTE | 2018-07-22 10:26 | P.PNCA ---
Subjective Interval history: asleep in nad Medications and Allergies Active Medications: Active Medications Acetaminophen (Tylenol) 650 mg PO Q4H PRN PRN Reason: Temp > 100.4 Last Admin: 07/22/18 02:56 Dose: 650 mg Al Hydroxide/Mg Hydroxide (Milk Of Magnesia Liq) 30 ml PO Q12H PRN PRN Reason: Mild Constipation Aspirin (Ecotrin) 81 mg PO DAILY [facility] Last Admin: 07/22/18 08:37 Dose: 81 mg Bisacodyl (Dulcolax Supp) 10 mg RECTAL DAILY PRN PRN Reason: SEVERE CONSITIPATION Clonidine HCl (Catapres) 0.1 mg PO Q6H PRN PRN Reason: SYS BP GREATER THAN 160 MMHG Last Admin: 07/21/18 21:09 Dose: 0.1 mg Hydralazine HCl (Apresoline Inj) 20 mg IV.PUSH Q4H PRN PRN Reason: Systolic BP > 160 mmHg Last Admin: 07/21/18 16:55 Dose: 20 mg Ketorolac Tromethamine (Toradol Inj) 30 mg IV.PUSH Q8HR [facility] Stop: 07/22/18 23:59 Last Admin: 07/22/18 05:10 Dose: 30 mg Lactulose (Lactulose Liq) 30 ml PO DAILY PRN PRN Reason: SEVERE CONSITIPATION Lorazepam (Ativan Inj) 1 mg IV.PUSH Q4H PRN PRN Reason: HOLDEN Last Admin: 07/20/18 21:14 Dose: 1 mg Metoprolol Tartrate (Lopressor) 25 mg PO BID [facility] Last Admin: 07/22/18 08:37 Dose: 25 mg Morphine Sulfate (Morphine Inj) 2 mg IV.PUSH Q4H PRN PRN Reason: PAIN 6-10 Last Admin: 07/22/18 08:37 Dose: 2 mg Nitroglycerin (Nitro-Bid 2% Oint) 0.5 inch TOPICAL Q6HR PRN PRN Reason: CHEST PAIN Ondansetron HCl (Zofran Inj) 4 mg IV.PUSH Q6H PRN PRN Reason: NAUSEA OR VOMITING Pravastatin Sodium (Pravachol) 40 mg PO DAILY [facility] Last Admin: 07/22/18 08:37 Dose: 40 mg Senna/Docusate Sodium (Rossy-Colace) 1 tab PO BID [facility] Last Admin: 07/22/18 08:37 Dose: Not Given Sennosides (Senokot) 17.2 mg PO Q12H PRN PRN Reason: Moderate Constipation Sodium Chloride (Ns Flush) 2 ml IV.FLUSH UNSCH PRN PRN Reason: FLUSH AFTER USING IV ACCESS Sodium Chloride (Ns Flush) 2 ml IV.FLUSH BID [facility] Last Admin: 07/22/18 08:37 Dose: 2 ml Sodium Chloride (Ns Flush) 2 ml IV.FLUSH PRN PRN PRN Reason: FLUSH AFTER USING IV ACCESS Allergies Allergy/AdvReac Type Severity Reaction Status Date / Time No Known Allergies AdvReac Unknown Uncoded 01/15/18 23:32 Home Medications Medication Instructions Recorded Confirmed Type No Known Home Medications 07/19/18 07/19/18 History Physical Exam Vital signs: Vital Signs 07/21/18 12:00 07/21/18 13:00 07/21/18 14:00 Temperature 97.6 F Pulse Rate 73 76 72 Respiratory Rate 18 Blood Pressure 190/107 H 194/94 H Pulse Oximetry 93 L 07/21/18 14:08 07/21/18 15:00 07/21/18 16:00 Temperature 98.0 F Pulse Rate 70 72 Respiratory Rate 18 Blood Pressure 175/85 H 175/101 H Pulse Oximetry 95 07/21/18 17:00 07/21/18 17:16 07/21/18 18:00 Temperature Pulse Rate 72 78 Respiratory Rate Blood Pressure Pulse Oximetry 93 L 07/21/18 18:08 07/21/18 19:00 07/21/18 20:00 Temperature 98.2 F Pulse Rate 74 78 Respiratory Rate 22 Blood Pressure 159/69 H 163/81 H Pulse Oximetry 95 07/21/18 21:00 07/21/18 22:00 07/21/18 23:00 Temperature Pulse Rate 77 69 70 Respiratory Rate Blood Pressure Pulse Oximetry 07/22/18 00:00 07/22/18 01:00 07/22/18 02:00 Temperature 98.4 F Pulse Rate 65 63 60 Respiratory Rate 22 Blood Pressure 141/78 H Pulse Oximetry 96 07/22/18 03:00 07/22/18 04:00 07/22/18 05:00 Temperature 98.2 F Pulse Rate 63 61 64 Respiratory Rate 20 Blood Pressure 127/72 Pulse Oximetry 96 07/22/18 05:48 Temperature Pulse Rate 62 Respiratory Rate Blood Pressure Pulse Oximetry Intake & Output 07/21/18 07/22/18 07/22/18 18:59 06:59 18:59 Intake Total 240 / 240 480 / 480 Output Total 800 / 800 Balance 240 / 240 -320 / -320 Weight 149.5 kg Intake: Oral 240 / 240 480 / 480 Output: Urine 800 / 800 Other: # Bowel Movements 0 - Constitutional no acute distress - Routine HEENT Exam Head: Present: normocephalic - Routine Neck Exam Present: supple - Routine Respiratory Exam Present: CTA bilaterally - Routine Cardiovascular Exam Present: S1, S2 - Routine Abdominal Exam Present: soft - Routine Extremities Exam Comments: no mihir Results 07/22/18 04:00 07/22/18 04:00 Cardiac Enzymes 07/21/18 07/22/18 Range/Units 05:23 04:00 AST 71 H 52 H (15-37) U/L Troponin I 0.23 H (0.02-0.05) ng/mL CBC 07/21/18 07/22/18 Range/Units 05:23 04:00 WBC 6.5 6.7 (4.0-11.0) th/mm3 RBC 4.70 4.61 (4.50-5.90) mil/mm3 Hgb 14.6 14.1 (13.0-17.0) gm/dL Hct 42.1 40.9 (39.0-51.0) % Plt Count 157 144 L (150-450) th/mm3 Neut # (Auto) 3.9 4.1 (1.8-7.7) th/mm3 Lymph # (Auto) 1.8 1.8 (1.0-4.8) th/mm3 [place] # (Auto) 0.6 0.6 (0.0-0.9) th/mm3 Eos # (Auto) 0.2 0.2 (0.0-0.4) th/mm3 Baso # (Auto) 0.0 0.0 (0.0-0.2) th/mm3 Comprehensive Metabolic Panel 07/21/18 07/22/18 Range/Units 05:23 04:00 Sodium 139 139 (136-145) meq/L Potassium 3.7 4.0 (3.5-5.1) meq/L Chloride 102 105 (98-107) meq/L Carbon Dioxide 31.6 28.9 (21.0-32.0) meq/L BUN 16 14 (7-18) mg/dL Creatinine 0.70 0.73 (0.60-1.30) mg/dL Calcium 8.1 L 8.4 L (8.5-10.1) mg/dL AST 71 H 52 H (15-37) U/L ALT 105 H 90 H (12-78) U/L Alkaline Phosphatase 86 90 (45-117) U/L Total Protein 7.6 7.1 (6.4-8.2) g/dL Albumin 3.1 L 3.1 L (3.4-5.0) g/dL Intake and Output 07/21/18 07/22/18 07/22/18 22:59 06:59 14:59 Intake Total 240 / 240 480 / 480 Output Total 800 / 800 Balance 240 / 240 -320 / -320 Intake: Oral 240 / 240 480 / 480 Output: Urine 800 / 800 Other: # Bowel Movements 0 Weight 149.5 kg Assessment and Plan - Assessment (1) Hypertensive urgency Code(s): I16.0 - Hypertensive urgency Status: Acute (2) Non-ST elevated myocardial infarction (non-STEMI) Code(s): I21.4 - Non-ST elevation (NSTEMI) myocardial infarction Status: Acute (3) Chest pain Code(s): R07.9 - Chest pain, unspecified Status: Acute (4) Elevated troponin Code(s): R74.8 - Abnormal levels of other serum enzymes Status: Acute (5) HTN (hypertension) Code(s): I10 - Essential (primary) hypertension Status: Acute (6) Tobacco abuse Code(s): Z72.0 - Tobacco use Status: Acute - Plan 1.) NSTEMI - assymptomatic with bp control, multiple risk factors, continue to trend troponin until peak, continue aspirin, metoprolol, pravachol, f/u echo, i strongly advised the patient to stop smoking and avoid nsaids; cath 07/23/18
[2018-07-22] MEDS: hydrALAZINE HCl Inj 20 MG/ML Vial IV.PUSH PRN ×2 (12:13→16:07)
--- NOTE | 2018-07-22 14:28 | P.PNIM ---
Subjective Interval history: Leg continues to feel better. No chest pain reported. Plan for heart cath 07/23/18. Physical Exam Vital signs: Last Vital Signs Temp 97.9 F 07/22/18 12:00 Pulse 70 07/22/18 12:00 Resp 20 07/22/18 13:20 BP 135/77 07/22/18 12:17 Pulse Ox 95 07/22/18 12:00 Intake & Output 07/20/18 07/21/18 07/22/18 07/23/18 06:59 06:59 06:59 06:59 Intake Total 240 / 240 1080 / 1080 720 / 720 Output Total 300 / 300 1700 / 1700 800 / 800 Balance -60 / -60 -620 / -620 -80 / -80 Weight 150 kg 150.1 kg 149.5 kg Narrative: GENERAL: NAD, A&Ox3, severe obesity HEAD: Normocephalic. NECK: Supple, trachea midline. No lymphadenopathy. EYES: No scleral icterus. No injection or drainage. CARDIOVASCULAR: Regular rate and rhythm without murmurs, gallops, or rubs. RESPIRATORY: Breath sounds equal bilaterally. No accessory muscle use. GASTROINTESTINAL: Abdomen soft, non-tender, nondistended. MUSCULOSKELETAL: No cyanosis, or edema. Right leg tenderness improving, range of motion improving. SKIN: Warm and dry. NEURO: No focal neurological deficits. Results Labs CBC & Chem 7: 07/22/18 04:00 07/22/18 04:00 Assessment and Plan (1) Hypertensive urgency: Code(s): I16.0 - Hypertensive urgency Status: Acute (2) Non-ST elevated myocardial infarction (non-STEMI): Code(s): I21.4 - Non-ST elevation (NSTEMI) myocardial infarction Status: Acute (3) Chest pain: Code(s): R07.9 - Chest pain, unspecified Status: Acute (4) Elevated troponin: Code(s): R74.8 - Abnormal levels of other serum enzymes Status: Acute (5) HTN (hypertension): Code(s): I10 - Essential (primary) hypertension Status: Acute (6) Tobacco abuse: Code(s): Z72.0 - Tobacco use Status: Acute Plan 52-year-old male admitted secondary to acute chest pain Doing well today. No symptoms. Heart cath planned on 07/23/2018. Right knee pain is improved. Chest pain Troponin elevation Continue to follow cardiac enzymes Cardiology following Continue aspirin Nitroglycerin as needed Continue statin Continue metoprolol Uncontrolled hypertension Follow blood pressures closely Continue antihypertensives (Hydralazine, Metoprolol) Right knee pain Gout versus osteoarthritis Check uric acid level Tramadol initiated as a treatment Nicotine dependence/abuse Patient counseled to quit DVT prophylaxis SCDs Progress Note: Quality VTE Deep Vein Thrombosis/Pulmonary Embolism Present on Admission: Yes _ (1) Chest pain Qualifiers: Chest pain type: Ischemic chest pain type: (2) HTN (hypertension) Qualifiers: Hypertension type:
[2018-07-23] MEDS: Morphine Sulfate Inj 2 MG/ML Vial IV.PUSH PRN ×3 (00:43→22:21)
[2018-07-23] MEDS: Acetaminophen 325 MG Tablet PO PRN (00:43)
[2018-07-23 06:43] LABS: Baso # (Auto) 0.1 th/mm3 (0.0-0.2); Baso % (Auto) 1.2 % (0.0-2.0); Eos # (Auto) 0.3 th/mm3 (0.0-0.4); Eos % (Auto) 4.3 % (0.0-4.0); Hematocrit 41.2 % (39.0-51.0); Hemoglobin 13.9 gm/dL (13.0-17.0); Lymph # (Auto) 1.7 th/mm3 (1.0-4.8); Lymph % (Auto) 25.8 % (9.0-44.0); Mean Corpuscular HGB Conc 33.6 % (32.0-36.0); Mean Corpuscular Hemoglobin 30.8 pg (27.0-34.0); Mean Corpuscular Volume 91.6 fL (80.0-100.0); Mean Platelet Volume 8.2 fL (7.0-11.0); Mono # (Auto) 0.6 th/mm3 (0.0-0.9); Mono % (Auto) 9.2 % (0.0-8.0); Neut # (Auto) 3.9 th/mm3 (1.8-7.7); Neut % (Auto) 59.5 % (16.0-70.0); Platelet Count 146 th/mm3 (150-450); Red Cell Distribution Width 13.8 % (11.6-17.2); White Blood Count 6.6 th/mm3 (4.0-11.0)
[2018-07-23 07:06] LABS: Albumin 3.1 g/dL (3.4-5.0); Anion Gap 5 meq/L (5-15); Aspartate Aminotransferase 38 U/L (15-37); Blood Urea Nitrogen 16 mg/dL (7-18); Calcium 8.3 mg/dL (8.5-10.1); Carbon Dioxide 28.4 meq/L (21.0-32.0); Chloride 105 meq/L (98-107); Glomerular Filtration Rate Greater Than 89 mL/min (>89); Glucose,Random 94 mg/dL (74-106); Magnesium 2.3 mg/dL (1.5-2.5); Potassium 3.9 meq/L (3.5-5.1); Sodium 138 meq/L (136-145)
[2018-07-23 07:08] LABS: Alanine Aminotransferase 77 U/L (12-78)
[2018-07-23 07:12] LABS: Alkaline Phosphatase 77 U/L (45-117)
[2018-07-23] MEDS: hydrALAZINE HCl Inj 20 MG/ML Vial IV.PUSH PRN (09:13)
[2018-07-23] MEDS: Metoprolol Tartrate 25 MG Tablet PO SCH ×2 (09:13→21:53)
[2018-07-23] MEDS: Senna/Docusate Sodium 8.6/50 MG Tablet PO SCH ×2 (09:13→21:54)
--- NOTE | 2018-07-23 10:46 | P.PNIM ---
Subjective Interval history: Patient continues to feel well today. No complaints of pain, pressure, or shortness of breath. Heart catheterization planned for today. Physical Exam Vital signs: Last Vital Signs Temp 97.9 F 07/23/18 08:00 Pulse 71 07/23/18 10:00 Resp 20 07/23/18 08:00 BP 173/100 H 07/23/18 08:00 Pulse Ox 95 07/23/18 08:00 Intake & Output 07/21/18 07/22/18 07/23/18 07/24/18 06:59 06:59 06:59 06:59 Intake Total 1080 / 1080 720 / 720 2160 / 2160 Output Total 1700 / 1700 800 / 800 500 / 500 Balance -620 / -620 -80 / -80 1660 / 1660 Weight 150.1 kg 149.5 kg 149.5 kg Narrative: GENERAL: NAD, A&Ox3, severe obesity HEAD: Normocephalic. NECK: Supple, trachea midline. No lymphadenopathy. EYES: No scleral icterus. No injection or drainage. CARDIOVASCULAR: Regular rate and rhythm without murmurs, gallops, or rubs. RESPIRATORY: Breath sounds equal bilaterally. No accessory muscle use. GASTROINTESTINAL: Abdomen soft, non-tender, nondistended. MUSCULOSKELETAL: No cyanosis, or edema. Right leg tenderness improving, range of motion improving. SKIN: Warm and dry. NEURO: No focal neurological deficits. Results Labs CBC & Chem 7: 07/23/18 05:10 07/23/18 05:10 Assessment and Plan (1) Hypertensive urgency: Code(s): I16.0 - Hypertensive urgency Status: Acute (2) Non-ST elevated myocardial infarction (non-STEMI): Code(s): I21.4 - Non-ST elevation (NSTEMI) myocardial infarction Status: Acute (3) Chest pain: Code(s): R07.9 - Chest pain, unspecified Status: Acute (4) Elevated troponin: Code(s): R74.8 - Abnormal levels of other serum enzymes Status: Acute (5) HTN (hypertension): Code(s): I10 - Essential (primary) hypertension Status: Acute (6) Tobacco abuse: Code(s): Z72.0 - Tobacco use Status: Acute Plan 52-year-old male admitted secondary to acute chest pain No chest pain symptoms since yesterday. Heart cath planned on 07/23/2018. Right knee pain is improved. Chest pain Troponin elevation Continue to follow cardiac enzymes Cardiology following Continue aspirin Nitroglycerin as needed Continue statin Continue metoprolol Uncontrolled hypertension Follow blood pressures closely Continue antihypertensives (Hydralazine, Metoprolol) Right knee pain Gout versus osteoarthritis Check uric acid level Tramadol initiated as a treatment Nicotine dependence/abuse Patient counseled to quit DVT prophylaxis SCDs Progress Note: Quality VTE Deep Vein Thrombosis/Pulmonary Embolism Present on Admission: Yes _ (1) Chest pain Qualifiers: Chest pain type: Ischemic chest pain type: (2) HTN (hypertension) Qualifiers: Hypertension type:
[2018-07-23] MEDS ORDERED: Heparin/NS PF Inj 1,500 ML ONE (14:29)
[2018-07-23] MEDS ORDERED: Heparin 10,000 UNITS/10 ML Vial (for IV use) ONE (14:50)
[2018-07-23] MEDS ORDERED: Heparin/NS PF Inj 1,000 ML ONE (14:50)
[2018-07-23] MEDS ORDERED: fentaNYL Citrate Inj 100 MCG/2 ML Ampul ONE (14:50)
--- NOTE | 2018-07-23 15:53 | CATHPROC ---
Neurodyn HIS Report Study Information Study Number Admission Scheduled Start Study Start [id number] Jul 19 2018 8:44PM 07/23/2018 Jul 23 2018 2:27PM [place] [facility] Cardiac Pacer/ICD Admit Source Facility Department Emergency department [facility] - [facility] Physician and Clinical Staff Initial Francisco Muñoz Skein Spooler Jane Cunha,SERGIO Recorder Yaakov Lee,RT(R) Scrub Chito Harley,RT(R) Procedures Performed Procedure Location (Site) Vessel Name Coronary Angiograms LCA Left Coronary Coronary Angiograms RCA Right Coronary L Heart Cath LV Gram-hand inj. LV LV Ventricle Equipment Time Geophysical Observer Description Size Mfg Part Number Used/Scraped TRANSDUCER, TRUWAVE [id number] 14:49 ENGEL BASURTO * Used W/STOCKCOCK *[id number] [id number] *[id number] *[id number] *[id number] 14:49 THUBIT BLANKET,WARM AIR CCL * Used *[id number] 14:49 THUBIT PACK, CCL CUSTOM * Used *[id number] 14:49 Crittercism PACER PEN, SKIN DUAL W/ RULER * Used *[id number] 14:49 ShoutEm WIRE, 3MMJ .035 180CM 180CM Used *[id number] 14:49 NAMIC MANIFOLD, 4 PORT * Used *[id number] 14:49 NYCOMED OMNIPAQUE, 350 MG, 150ML 150ML [id number] Used [id number] 14:49 TERUMO MEDICAL SHEATH, FR4 TERUMO (10CM) FR 4 Used *[id number] History: Allergies Allergy Reaction No Known Allergies History: Risk Factors Family History of Hypertension Dyslipidemia Previous [place] Previous Heart Failure Premature CAD Yes Yes Yes No No Prior Valve Prior PCI Prior CABG Surgery No No No Cerebrovascular Peripheral Artery Chronic Lung On Dialysis Diabetes Disease Disease Disease No No Yes No No History: Symptoms/Diagnosis Selection Items Chest pain SOB History: Other Current Smoker Method Packs a Day Years Used Pack Years Yes Cigarettes 1 40 40 Labs Hgb (g/dl) Hct (%) WBC (l/cumm) Platelets (thousands) 11.60-17.00 35.00-51.00 4.00-11.00 150.00-450.00 13.9 41.2 6.6 146 Glucose (mg/dl) BUN (mg/dl) Creatinine (mg/dl) BUN:Creatinine (1:x) 74.00-106.00 7.00-18.00 0.50-1.30 10.00-20.00 94 16 0.7 22.9 Na (meq/l) K (meq/l) 136.00-145.00 3.50-5.10 138 3.9 INR (PTT:PT) 0.90-1.10 1 Troponin I (ng/ml) CPK-MB (ng/ML) 0.02-0.05 0.50-3.60 0.1 Not Drawn Medication Medication Total Dose (Bolus/Oral) Medication Total Dosage/Unit 1% XYLOCAINE 20 mL FENTANYL 25 mcg LASIX 20 mg NITRO OINTMENT 2 inches VERSED 1 mg Medications (Bolus/Oral) Medication Time Given Dosage/Unit Administered By Reason VERSED 07/23/2018 3:11:18 PM 1 mg Jane Cunha 1 mg VERSED given in lab by Jane Cunha, SERGIO via Peripheral IV. Ordered by Francisco Johnson. FENTANYL 07/23/2018 3:12:37 PM 25 mcg Jane Cunha 25 mcg FENTANYL given in lab by Jane Cunha, SERGIO via Peripheral IV. Ordered by Francisco Johnson. 1% XYLOCAINE 07/23/2018 3:12:42 PM 20 mL Francisco Johnson 20 mL 1% XYLOCAINE given in lab by Francisco Johnson in Right Groin via Subcutaneous. Ordered by Francisco Sotomayor. NITRO OINTMENT 07/23/2018 3:26:14 PM 2 inches Jane Cunha 2 inches NITRO OINTMENT given in lab by Jane Cunha, SERGIO in Left Arm via Topical. Ordered by Francisco Sotomayor. LASIX 07/23/2018 3:29:31 PM 20 mg Jane Cunha 20 mg LASIX given in lab by Jane Cunha, SERGIO via Peripheral IV. Ordered by Francisco Johnson. Medication (Drip) Medication Time Given Dosage/Unit Concentration/Unit Diluent (ml) Solution IV Solutions 07/23/2018 2:46:03 PM 0 mL (IV) 500 NaCl .9 Patient arrived on IV Solutions given by Francisco Johnson in Right Antecubital via Peripheral IV. Pum p/Drip Flow = 20 ml/hr using NaCl .9. Ordered by Francisco Johnson. Chronological Log Time Study Chronological Log 14:37:57 Patient arrived via Bed. 14:37:59 Patient Name, D.O.B, / Armband Verified By R.N. 14:38:00 Consent signed by the physician and the patient and verified by the [facility] staff. 14:38:01 Pre-op and post- op instructions given; patient acknowledges understanding of instruction s. 14:38:02 Verbal Stimulation=2 Physical Stimulation=2 Airway=2 Respiration=2 TOTAL=8. (0=absent, 1= limited, 2=present) 14:38:10 Presedation assessment performed by [facility] RN. 14:38:12 Patient has been NPO for More than 6Hrs. 14:44:43 Skin Breakdown-none present per patient. 14:45:19 A # 20 IV was noted in the Antecubital (right). Grade = 0 Patient arrived on IV Solutions given by Francisco Johnson in Right Antecubital via Peripheral IV. Pump/Drip Flow = 20 14:46:03 ml/hr using NaCl .9. Ordered by Francisco Johnson. 14:46:25 History and physical on the chart or being dictated. Vitals capture started with the following parameters, Patient=Adult, Interval=5 min, Initial Teegzexe=013 mmHg, 14:46:31 Deflation Rate=5 mmHg, Cuff placed on Right Arm 14:47:51 Bilateral groins prepped with 2% chlorhexidine, and draped after a 3 minute waiting time. 14:48:04 HR=71 bpm, NWPS=574/98 mmhg, SpO2=95.0 %, Resp=24 B/min, Spivey=2 14:49:51 Reference ECG taken 14:52:28 HR=74 bpm, ZDPF=307/108 mmhg, SpO2=94.0 %, Resp=25 B/min 14:54:06 Pressure channel 2 zeroed. 14:56:29 MD paged 14:57:32 HR=72 bpm, WNMU=042/95 mmhg, SpO2=93.0 %, Resp=22 B/min, Spivey=2 14:58:36 MD responded 15:02:29 HR=72 bpm, ZTBL=918/89 mmhg, SpO2=95.0 %, Resp=24 B/min, Spivey=2 15:07:32 HR=74 bpm, AXBQ=863/102 mmhg, SpO2=96.0 %, Resp=21 B/min, Pain=0, Talat=10, Spivey=2 15:08:42 MD arrived. 15:11:18 1 mg VERSED given in lab by Jane Cunha, SERGIO via Peripheral IV. Ordered by Miguel Ángel Johnson. 15:12:35 HR=75 bpm, SKZZ=246/100 mmhg, SpO2=94.0 %, Resp=22 B/min Time Out. Correct patient, correct procedure, correct physician, labs, allergies, and equipment verified with laborer marine terminal 15:12:36 team present. Fire risk assesment completed (see hard stop sheet for coding). Time Out Conc urred by MD and individual staff in procedure. 15:12:37 25 mcg FENTANYL given in lab by Jane Cunha, SERGIO via Peripheral IV. Ordered by Francisco Johnson. 15:12:40 Case Start 20 mL 1% XYLOCAINE given in lab by Francisco Johnson in Right Groin via Subcutaneous. Ordered by Elizabeth 15:12:42 Francisco. 15:13:58 Access site was Right Femoral Artery. 15:14:41 A SHEATH, FR4 TERUMO (10CM) FR 4 was advanced into the Fem Art (right) using the Modified S eldinger technique. A JR 4.0 INFINITI CATHETER FR 4 was advanced over a wire. OMNIPAQUE, 350 MG, 150ML 150ML was us ed for 15:15:14 injections. Recorded Pressure: LV, HR=78, Condition=Condition 1 15:16:27 (Left Ventricle) LV 171/82/154 15:16:51 The LV was manually injected with 10 cc's and visualized. OMNIPAQUE, 350 MG, 150ML 150ML us ed. 15:17:09 The RCA was injected and visualized at various angles. OMNIPAQUE, 350 MG, 150ML 150ML used . Recorded Pressure: Ao, HR=78, Condition=Condition 1 15:17:28 (Aorta) Ao 169/107/134 15:17:34 HR=76 bpm, EBMB=878/92 mmhg, SpO2=96.0 %, Resp=13 B/min, Pain=0, Talat=10, Spivey=2 15:17:55 Catheter was removed A JL 4.0 INFINITI CATHETER FR 4 was advanced over a wire. OMNIPAQUE, 350 MG, 150ML 150ML was us ed for 15:18:24 injections. 15:19:04 The LCA was injected and visualized at various angles. OMNIPAQUE, 350 MG, 150ML 150ML used . 15:20:30 Catheter was removed A JL 5.0 INFINITI CATHETER FR 4 was advanced over a wire. OMNIPAQUE, 350 MG, 150ML 150ML was us ed for 15:20:55 injections. 15:22:15 The LCA was injected and visualized at various angles. OMNIPAQUE, 350 MG, 150ML 150ML used . 15:22:31 HR=77 bpm, HAMO=170/88 mmhg, SpO2=95.0 %, Resp=22 B/min, Pain=0, Talat=10, Spivey=2 15:24:33 Catheter was removed 15:25:00 Physician reviewing films 15:26:14 2 inches NITRO OINTMENT given in lab by Jane Cunha, SERGIO in Left Arm via Topical. Ordere d by Francisco Johnson. 15:27:30 HR=75 bpm, GSFR=468/94 mmhg, SpO2=94.0 %, Resp=22 B/min, Pain=0, Talat=10, Spivey=2 15:29:31 20 mg LASIX given in lab by Jane Cunha, SERGIO via Peripheral IV. Ordered by Miguel Ángel Johnson. 15:30:37 Case End (Physician broke scrub) 15:31:10 Sheath removed; pressure applied to access site. 15:31:23 Catheter(s) removed without difficulty 15:31:47 No case complications noted. 15:31:49 Bedside Report will be given. 15:31:52 A Left Heart Cath was performed. 15:32:33 HR=78 bpm, RTTV=074/93 mmhg, SpO2=96.0 %, Resp=17 B/min, Pain=0, Talat=10, Spivey=2 15:37:42 FHHB=032/81 mmhg, SpO2=96.0 %, Pain=0, Talat=10, Spivey=2 15:42:31 ZXTL=611/88 mmhg, SpO2=93.0 %, Pain=0, Talat=10, Spivey=2 15:46:59 Vitals capture stopped. 15:50:13 Patient moved to stretcher End Study - Contrast Media Used In Study Contrast Total Opened (mL) Total Used (mL) Total Wasted (mL) Omnipaque 350 60 60 0 End Study - Maximum Contrast Load Max Contrast Load (mL) 1067.9 End Study - Radiation Exposure Fluoro Time (minutes) 2.7 End Study - Sheaths Sheaths Pulled By Sheath Hold Time (min) Chito Harley End Study - Patient Disposition Complications Transferred To Interventional Outcome No Telemetry Bed No attempt made
[2018-07-23] MEDS ORDERED: Iohexol 350 MG/ML 100 ML Vial (for Cath Lab) IVCONTRAST ONE (16:08)
[2018-07-23] MEDS: Spironolactone 25 MG Tablet PO SCH (17:23)
--- NOTE | 2018-07-23 19:55 | MR ---
cc: Francisco Johnson MD DATE: 07/23/2018 PROCEDURE PERFORMED: 1. Left heart catheterization. 2. Left ventriculography. 3. Coronary angiography. INDICATIONS FOR PROCEDURE: Non-STEMI, coronary artery disease, hypertension, tobacco use. DESCRIPTION OF PROCEDURE: The patient was brought to the cardiac catheterization laboratory and prepped and draped in the usual sterile fashion. Then, 10 mL of 1% lidocaine was used to locally anesthetize the right common femoral artery. A 5 [place] sheath was placed in the right common femoral artery and 4 [place] and JR4 and JL5 catheters were used to performed left and right coronary angiography and left ventriculography. FINDINGS: LV pressure is 170/25-30. EF 50%. The right coronary artery is large and dominant. There is mild diffuse disease in the proximal segment of up to 5% to 10% angiographically. The ostium has a 20% stenosis. The left main coronary artery has no significant disease angiographically. The left circumflex vessel has no significant disease angiographically. The first obtuse marginal vessel has an ostial bifurcation with no significant disease angiographically. Reference vessel diameter is 2.5 mm. The second obtuse marginal vessel is a 3.0 mm reference vessel diameter with no obvious focal stenosis. The LAD has a relatively abrupt vessel tapering from about a 4 mm vessel down to about a 2.5 mm. It is difficult to tell how much of a normal vessel tapering versus a focal stenosis. The patient is extremely difficult to image due to his extremely large body habitus, even with high-dose radiation. The best I can determine in multiple views, the proximal mid LAD at a bifurcation with a large diagonal vessel appears to have possibly 60% stenosis. In the AP cranial view, I do not really appreciate really any significant stenosis. The LAD appears to be most stenotic in the caudal views. The first diagonal artery is a large 3 to 3.5 mm vessel with mild disease in the ostial proximal segment up to 20% to 30% angiographically. The LAD is a large transapical vessel otherwise. CONCLUSION: 1. Sks-RB-fsgeirkrh myocardial infarction, severe hypertension, culprit 50% to 60% mid left anterior descending at a bifurcation with a large 3.5 mm reference vessel diameter diagonal vessel. 2. Otherwise, mild 3-vessel coronary artery disease in a right dominant system, as detailed above. 3. Low end low normal left ventricular systolic function with an ejection fraction of 50%. 4. Markedly elevated left ventricular end-diastolic pressure equal to 30 mmHg, consistent with severe diastolic congestive heart failure. Note, the patient has been given 20 mg of intravenous Lasix in the catheterization lab. 5. Recommend aspirin 162 mg daily. I have strongly advised the patient stop smoking. We will treat with statins, beta blockers and angiotensin-converting enzyme inhibitors as clinically and hemodynamically tolerated. 6. I have explained to the patient that as he is extremely difficult to image, stenting the left anterior descending would be very high risk as the diagonal vessel is a large 3.5 mm reference vessel diameter vessel with a 30-degree angulation off the left anterior descending. Also, given his body habitus and long smoking history, his risk for coronary artery bypass graft procedure I would expect to be higher than average. He clearly understands this, and I made it very clear to him that without smoking cessation or compliance with his medications that it would be very likely that he would need high risk intervention or coronary artery bypass graft procedure. He understands. MD SHARON Reddy/eddie , 03:40 PM , 03:52 PM
[2018-07-24 08:07] LABS: Baso % (Auto) 0.4 % (0.0-2.0); Eos # (Auto) 0.2 th/mm3 (0.0-0.4); Eos % (Auto) 2.8 % (0.0-4.0); Hematocrit 39.9 % (39.0-51.0); Hemoglobin 13.9 gm/dL (13.0-17.0); Lymph # (Auto) 1.5 th/mm3 (1.0-4.8); Lymph % (Auto) 19.3 % (9.0-44.0); Mean Corpuscular HGB Conc 34.8 % (32.0-36.0); Mean Corpuscular Hemoglobin 31.3 pg (27.0-34.0); Mean Corpuscular Volume 90.2 fL (80.0-100.0); Mean Platelet Volume 8.4 fL (7.0-11.0); Mono # (Auto) 0.9 th/mm3 (0.0-0.9); Mono % (Auto) 11.2 % (0.0-8.0); Neut # (Auto) 5.2 th/mm3 (1.8-7.7); Neut % (Auto) 66.3 % (16.0-70.0); Platelet Count 163 th/mm3 (150-450); Red Blood Count 4.43 mil/mm3 (4.50-5.90); Red Cell Distribution Width 13.9 % (11.6-17.2); White Blood Count 7.8 th/mm3 (4.0-11.0)
[2018-07-24 08:31] LABS: Albumin 3.4 g/dL (3.4-5.0); Anion Gap 5 meq/L (5-15); Aspartate Aminotransferase 35 U/L (15-37); Blood Urea Nitrogen 13 mg/dL (7-18); Calcium 8.7 mg/dL (8.5-10.1); Carbon Dioxide 27.9 meq/L (21.0-32.0); Chloride 104 meq/L (98-107); Glomerular Filtration Rate Greater Than 89 mL/min (>89); Glucose,Random 89 mg/dL (74-106); Sodium 137 meq/L (136-145)
[2018-07-24 08:36] LABS: Alanine Aminotransferase 74 U/L (12-78); Alkaline Phosphatase 81 U/L (45-117); Total Protein 7.5 g/dL (6.4-8.2)
[2018-07-24] MEDS: Metoprolol Tartrate 25 MG Tablet PO SCH (08:58)
[2018-07-24] MEDS: Spironolactone 25 MG Tablet PO SCH (08:58)
[2018-07-24] MEDS: Senna/Docusate Sodium 8.6/50 MG Tablet PO SCH (08:59)
[2018-07-24] MEDS ORDERED: Lisinopril 10 MG Tablet PO SCH (09:00)
--- NOTE | 2018-07-24 11:47 | P.PN ---
Subjective Interval history: up in chair no complains of chest discomfort or shortnes of breath no groin pain telemetry sinus some elevated SBPs Physical Exam Vital signs: Vital Signs 07/23/18 12:00 07/23/18 13:00 07/23/18 16:00 Temperature 97.8 F 97.8 F Pulse Rate 76 68 74 Respiratory Rate 20 20 Blood Pressure 146/90 H 149/81 H Pulse Oximetry 97 95 07/23/18 16:40 07/23/18 17:00 07/23/18 18:00 Temperature Pulse Rate 65 74 Respiratory Rate Blood Pressure Pulse Oximetry 96 07/23/18 19:00 07/23/18 20:00 07/23/18 20:48 Temperature Pulse Rate 78 75 Respiratory Rate 18 Blood Pressure 153/75 H Pulse Oximetry 94 L 95 07/23/18 21:00 07/23/18 22:00 07/23/18 23:00 Temperature Pulse Rate 74 78 74 Respiratory Rate Blood Pressure Pulse Oximetry 07/23/18 23:30 07/24/18 00:00 07/24/18 01:00 Temperature Pulse Rate 73 64 Respiratory Rate 20 20 Blood Pressure 144/64 H Pulse Oximetry 94 L 07/24/18 02:00 07/24/18 03:00 07/24/18 04:00 Temperature Pulse Rate 74 64 68 Respiratory Rate 16 Blood Pressure 178/102 H Pulse Oximetry 95 07/24/18 05:00 07/24/18 05:54 07/24/18 07:00 Temperature Pulse Rate 68 63 68 Respiratory Rate Blood Pressure Pulse Oximetry 07/24/18 08:00 07/24/18 09:00 07/24/18 10:00 Temperature 97.4 F L Pulse Rate 72 78 63 Respiratory Rate 22 Blood Pressure 166/78 H Pulse Oximetry 93 L 07/24/18 10:08 Temperature Pulse Rate Respiratory Rate Blood Pressure Pulse Oximetry 96 Intake & Output 07/23/18 07/24/18 07/24/18 18:59 06:59 18:59 Intake Total 400 / 400 240 / 240 Output Total 900 / 900 500 / 500 Balance -500 / -500 -260 / -260 Weight 144.5 kg Intake: IV 10 / 10 Heparin/NS PF Inj 1,500 ML @ 0 10 / 10 mls/hr .ROUTE .[facility] Rx#: [id number] Oral 240 / 240 240 / 240 Anesthesia Amount 150 / 150 Output: Urine 900 / 900 500 / 500 Other: Date of Last Bowel Movement 07/23/18 07/23/18 07/23/18 # Bowel Movements 2 Narrative: GENERAL: NAD, A&Ox3, obese HEAD: Normocephalic. NECK: Supple, trachea midline. No lymphadenopathy. EYES: No scleral icterus. No injection or drainage. CARDIOVASCULAR: Regular rate and rhythm without murmurs, gallops, or rubs. RESPIRATORY: Breath sounds equal bilaterally. No accessory muscle use. GASTROINTESTINAL: Abdomen soft, non-tender, nondistended. MUSCULOSKELETAL: No cyanosis, or edema. no groin hematoma SKIN: Warm and dry. NEURO: No focal neurological deficits. Results - Labs CBC & Chem 7: 07/24/18 06:20 07/24/18 06:20 Laboratory Results - last 24 hr 07/24/18 07/24/18 06:20 06:20 WBC 7.8 RBC 4.43 L Hgb 13.9 Hct 39.9 MCV 90.2 MCH 31.3 MCHC 34.8 RDW 13.9 Plt Count 163 MPV 8.4 Neut % (Auto) 66.3 Lymph % (Auto) 19.3 Foard % (Auto) 11.2 H Eos % (Auto) 2.8 Baso % (Auto) 0.4 Neut # (Auto) 5.2 Lymph # (Auto) 1.5 Foard # (Auto) 0.9 Eos # (Auto) 0.2 Baso # (Auto) 0.0 WBC Differential . Differential Comment Auto diff final Sodium 137 Potassium 4.0 Chloride 104 Carbon Dioxide 27.9 Anion Gap 5 BUN 13 Creatinine 0.68 Estimated GFR Greater than 89 Random Glucose 89 Calcium 8.7 Total Bilirubin 0.8 AST 35 ALT 74 Alkaline Phosphatase 81 Total Protein 7.5 Albumin 3.4 - Procedures cardiac cath 07/23 Assessment and Plan - Assessment (1) Hypertensive urgency Code(s): I16.0 - Hypertensive urgency Status: Acute (2) Non-ST elevated myocardial infarction (non-STEMI) Code(s): I21.4 - Non-ST elevation (NSTEMI) myocardial infarction Status: Acute (3) Chest pain Code(s): R07.9 - Chest pain, unspecified Status: Acute (4) Elevated troponin Code(s): R74.8 - Abnormal levels of other serum enzymes Status: Acute (5) HTN (hypertension) Code(s): I10 - Essential (primary) hypertension Status: Acute (6) Tobacco abuse Code(s): Z72.0 - Tobacco use Status: Acute - Plan 52-year-old male admitted secondary to acute chest pain No chest pain symptoms since yesterday. Heart cath planned on 07/23/2018. Right knee pain is improved. Chest pain- Troponin elevation Continue to follow cardiac enzymes Cardiology following Continue aspirin Nitroglycerin as needed Continue statin Continue metoprolol - medical management Uncontrolled hypertension Follow blood pressures closely Continue antihypertensives (Hydralazine, Metoprolol) ADD amloidpine 5 mg daily Right knee pain Gout versus osteoarthritis Check uric acid level Tramadol initiated as a treatment Nicotine dependence/abuse Patient counseled to quit DVT prophylaxis SCDs DC if cleared by [facility]
[2018-07-24] MEDS ORDERED: amLODIPine 5 MG Tablet PO SCH (12:00)
--- NOTE | 2018-07-24 18:15 | P.DS ---
Date of admission: 07/19/18 20:44 Primary care physician: Juma Epps MD Anticipated date of discharge: 07/24/18 Brief History from admission: This is a 52-year-old male with a PMH of HTN, Hyperlipidemia and Tobacco Abuse who presented to the ER with complaints of chest pain starting earlier this afternoon. Reports substernal chest pain, sharp, severe, 10/10, with radiation to back. Upon EMS arrival, pt noted to be significantly hypertensive w/ BP >200 's. Pt reports he stopped all antihypertensives approx 8mo ago because "my blood pressure was normal". Denies fever, chills or SOB. S/p NTG w/ improvement. On arrival, BP 189/103, HR 83, O2 sat 92% on RA, Afebrile. CBC unremarkable. INR 1.0. Chemistry essentially unremarkable. Troponin 0 0.13. CTA Thoracic Aorta no aneurysm or dissection. LE Doppler negative for DVT. S/ p Lopressor IV x3 in ER w/ minimal improvement in BP. Dr. Johnson consulted, recommended no Heparin in light of BP. Pt currently chest pain free. Patient update on day of discharge: sinus no chest pain good sats DS: Diagnosis - Discharge Diagnosis (1) Hypertensive urgency Status: Acute (2) Non-ST elevated myocardial infarction (non-STEMI) Status: Acute (3) Chest pain Status: Acute (4) Elevated troponin Status: Acute (5) HTN (hypertension) Status: Acute (6) Tobacco abuse Status: Acute DS: Medications - Discharge Medications Prescriptions: amlodipine [Norvasc] 5 mg PO DAILY 30 Days #30 tab aspirin 162 mg PO DAILY 30 Days #60 tab lisinopril 10 mg PO DAILY 30 Days #30 tab metoprolol tartrate 25 mg PO BID 30 Days #60 tab pravastatin 40 mg PO DAILY 30 Days #30 tab spironolactone [Aldactone] 25 mg PO BID@0900,1800 30 Days tab DS: Summary Hospital Course: 52-year-old male admitted secondary to acute chest pain No chest pain symptoms since yesterday. Heart cath planned on 07/23/2018. Right knee pain is improved. Chest pain- Troponin elevation Continue to follow cardiac enzymes Cardiology following Continue aspirin Nitroglycerin as needed Continue statin Continue metoprolol - medical management Uncontrolled hypertension Follow blood pressures closely- better but some SBP in the 150-160 Continue antihypertensives (Hydralazine, Metoprolol) ADD amloidpine 5 mg daily Right knee pain Gout versus osteoarthritis Check uric acid level- normal Tramadol initiated as a treatment OP ff up with PCP Nicotine dependence/abuse Patient counseled to quit DVT prophylaxis SCDs DC today OP ff up with PCP and Cardiology - Time Spent with Patient Total time spent providing and/or coordinating discharge services: - Quality: VTE Deep Vein Thrombosis/Pulmonary Embolism Present on Admission: Yes Exam Vital signs: Vital Signs 07/23/18 19:00 07/23/18 20:00 07/23/18 20:48 Temperature Pulse Rate 78 75 Respiratory Rate 18 Blood Pressure 153/75 H Pulse Oximetry 94 L 95 07/23/18 21:00 07/23/18 22:00 07/23/18 23:00 Temperature Pulse Rate 74 78 74 Respiratory Rate Blood Pressure Pulse Oximetry 07/23/18 23:30 07/24/18 00:00 07/24/18 01:00 Temperature Pulse Rate 73 64 Respiratory Rate 20 20 Blood Pressure 144/64 H Pulse Oximetry 94 L 07/24/18 02:00 07/24/18 03:00 07/24/18 04:00 Temperature Pulse Rate 74 64 68 Respiratory Rate 16 Blood Pressure 178/102 H Pulse Oximetry 95 07/24/18 05:00 07/24/18 05:54 07/24/18 07:00 Temperature Pulse Rate 68 63 68 Respiratory Rate Blood Pressure Pulse Oximetry 07/24/18 08:00 07/24/18 09:00 07/24/18 10:00 Temperature 97.4 F L Pulse Rate 72 78 63 Respiratory Rate 22 Blood Pressure 166/78 H Pulse Oximetry 93 L 07/24/18 10:08 07/24/18 11:00 07/24/18 12:00 Temperature 97.6 F Pulse Rate 77 81 Respiratory Rate 20 Blood Pressure 147/60 H Pulse Oximetry 96 93 L 07/24/18 13:00 Temperature Pulse Rate 77 Respiratory Rate Blood Pressure Pulse Oximetry Intake & Output 07/23/18 07/24/18 07/24/18 18:59 06:59 18:59 Intake Total 400 / 400 240 / 240 640 / 640 Output Total 900 / 900 500 / 500 600 / 600 Balance -500 / -500 -260 / -260 40 / 40 Weight 144.5 kg Intake: IV Heparin/NS PF Inj 1,500 ML @ 0 10 / 10 mls/hr .ROUTE .[employer] [facility] Rx#: [id number] Oral 240 / 240 240 / 240 640 / 640 Anesthesia Amount 150 / 150 Output: Urine 900 / 900 500 / 500 600 / 600 Other: Date of Last Bowel Movement 07/23/18 07/23/18 07/24/18 # Bowel Movements 2 1 Results Procedures completed during hospitalization: cardiac cath 07/23 Labs on day of discharge: Labs from last 24 hours 07/24/18 07/24/18 06:20 06:20 WBC 7.8 RBC 4.43 L Hgb 13.9 Hct 39.9 MCV 90.2 MCH 31.3 MCHC 34.8 RDW 13.9 Plt Count 163 MPV 8.4 Neut % (Auto) 66.3 Lymph % (Auto) 19.3 Branch % (Auto) 11.2 H Eos % (Auto) 2.8 Baso % (Auto) 0.4 Neut # (Auto) 5.2 Lymph # (Auto) 1.5 Branch # (Auto) 0.9 Eos # (Auto) 0.2 Baso # (Auto) 0.0 WBC Differential . Differential Comment Auto diff final Sodium 137 Potassium 4.0 Chloride 104 Carbon Dioxide 27.9 Anion Gap 5 BUN 13 Creatinine 0.68 Estimated GFR Greater than 89 Random Glucose 89 Calcium 8.7 Total Bilirubin 0.8 AST 35 ALT 74 Alkaline Phosphatase 81 Total Protein 7.5 Albumin 3.4 - Impressions ITS Impressions Thoracic Aorta CT 07/19/18 18:51 1. CONCLUSION: No thoracic or abdominal aortic aneurysm or dissection. Mild scarring in the lungs and mild air trapping. Venous Doppler Study 07/19/18 18:57 CONCLUSION: 1. The study is negative for lower extremity deep venous thrombosis. Discharge Plan - Discharge Disposition Patient Disposition: Discharge Home - Discharge Condition Condition: Stable - Discharge Order Discharge Orders: Discharge Order (Routine); Ordered 07/24/18 Ordered By: Allison Mancia Cardiology Clear for Discharge (Routine); Ordered 07/24/18 Ordered By: Francisco Johnson ED Use Only Admit Order (Routine); Ordered 07/19/18 Ordered By: Obi Underwood - Discharge Details Anticipated Discharge Date: 07/24/18 - Physicians Team Primary Care Provider: Juma Epps Attending Provider: Allison Mancia Other Providers: Francisco Johnson MD
== END 2018-07-24 12:48 | disposition home or self-care (01) ==
LOC: NEPE 17:27 → NEDA 20:44 → HCIS 22:50
PROVIDERS: ADMIT Internal Medicine; ATTEND Internal Medicine
DX: I21.4 Non-ST elevation (NSTEMI) myocardial infarction; E78.5 Hyperlipidemia, unspecified; I50.30 Unspecified diastolic (congestive) heart failure; R73.9 Hyperglycemia, unspecified; E66.01 Morbid (severe) obesity due to excess calories; I16.0 Hypertensive urgency; Z91.19 Patient's noncompliance with other medical treatment and regimen; I25.10 Atherosclerotic heart disease of native coronary artery without angina pectoris; Z68.41 Body mass index [BMI] 40.0-44.9, adult; F17.210 Nicotine dependence, cigarettes, uncomplicated; M25.561 Pain in right knee; I11.0 Hypertensive heart disease with heart failure; Z91.14 Patient's other noncompliance with medication regimen